=== PATIENT | male | born 1945 | race Caucasian/White ===

== ENCOUNTER → 2024-07-31 19:30 | Outpatient (REF) | payer OTHER, SELFPAY ==
--- OUTSIDE RECORDS SUMMARY | 2024-08-01 00:57 | XMS_ITS | Encounter Summary ---
Author Name [facility] Organization [facility] [place] Address [address] [place] [id number] Care Team Providers Care Game Preserve Manager Name Role Phone YAMILKA SPENCER Primary Care Provider MINI Hendricks Primary Care Provider Unavailab thibodeaux Insurance Providers: All historical and current Section Date Range: From patient's date of to the date document was created. This section includes the names of all active insurance providers for the patient. Insurance Provider Type of Coverage Plan Name Start of Policy Coverage End of Policy Coverage Group Number Member ID Insurance Provider's Telephone Number Policy Haile's Name Patient's Relationship to Policy Haile [employer] [facility] (WNR) MEDICARE ADVANTAGE [facility] ([facility] August 28, 2022 [id number] [phone] DEUCE GUAJARDO PATIENT MEDICARE (WNR) MEDICARE () PART B Oct 29, 2015 PART B [id number] [phone] DEUCE GUAJARDO PATIENT MEDICARE (WNR) MEDICARE () PART B Oct 29, 2015 PART B [id number] [phone] DEUCE GUAJARDO PATIENT MEDICARE (WNR) MEDICARE (M) PART B Oct 29, 2015 PART B [id number] [phone] DEUCE GUAJARDO PATIENT MEDICARE (WNR) MEDICARE (M) PART B Oct 29, 2015 PART B [id number] [phone] DEUCE GUAJARDO PATIENT MEDICARE (WNR) MEDICARE () PART A Jul 29, 2012 PART A [id number] DEUCE GUAJARDO PATIENT MEDICARE (WNR) MEDICARE (M) PART A Jul 29, 2012 PART A [id number] [phone] DEUCE GUAJARDO PATIENT MEDICARE (WNR) MEDICARE (M) PART A Jul 29, 2012 PART A [id number] [phone] DEUCE GUAJARDO PATIENT MEDICARE (WNR) MEDICARE (M) PART A Jul 29, 2012 PART A [id number] DEUCE GUAJARDO PATIENT MEDICARE (WNR) MEDICARE (M) PART B Jul 29, 2012 PART B [id number] DEUCE GUAJARDO PATIENT MEDICARE (WNR) MEDICARE (M) PART A Jul 29, 2012 PART A [id number] DEUCE GUAJARDO PATIENT MEDICARE PART D (WNR) MEDICARE (M) PART D Apr 30, 2017 PART D [id number] DEUCE GUAJARDO PATIENT Selected Encounter This section includes the information on record at [place] for the Encounter. Date/Time Encounter Type Encounter Description Reason Provider Source Jul 31, 2024 11:00 AM [facility] EVALUATION AUDIOLOGY ICD-10-CM Z46.1 Encounter for fitting and adjustment of hearing aid DAMARIS RESENDIZ [facility] Encounter Template Text not used by [place] Assessments - Encounter Diagnoses This section includes the primary and secondary diagnoses documented for the Encounter. Date/Time Primary/Secondary Diagnosis Diagnosis Name Provider Source Jul 31, 2024 11:53 AM PRIMARY Encounter for fitting and adjustment of hearing aid DAMARIS RESENDIZ [facility] Jul 31, 2024 11:53 AM SECONDARY Sensorineural hearing loss, bilateral DAMARIS RESENDIZ [facility] Plan of Treatment: Future Appointments (+ 6 months) and Future Tests (+/- 45 days) The Plan of Treatment section includes future care activities for the patient from all [place] treatmentfacilities. This section includes future appointments and future orders which are active, pending or scheduled. Future Appointments This section includes appointments that were scheduled to occur 6 months from the date of the Encounter, up to a maximum of 20 appointments. The data comes from all [place] treatment facilities. Appointment Date/Time Appointment Type Appointme nt Facility Name Aug 04, 2024 09:00 AM AMBULATORY - MEDICINE [place] [facility] [place] [facility] Aug 05, 2024 01:00 PM AMBULATORY - MEDICINE [place] [facility] [place] [facility] Aug 07, 2024 09:00 AM AMBULATORY - MEDICINE [place] [facility] [place] [facility] Aug 07, 2024 09:00 AM AMBULATORY - [place]ICINE [place] [facility] September 08, 2024 03:00 PM [facility] Nov 24, 2024 09:00 AM AMBULATORY - MEDICINE [place] [facility] [place] [facility] Dec 02, 2024 01:00 PM AMBULATORY - MEDICINE [place] [facility] [place] [facility] Dec 02, 2024 01:00 PM AMBULATORY - MEDICINE [place] [facility] Active, Pending, and Scheduled Orders This section includes a listing of several types of active, pending, and scheduled orders, including clinic medications orders, diagnostic test orders, procedure orders and consult orders; where the start date of the order is 45 days before the date of the Encounter or 45 days after the date of theEncounter. The data comes from all [place] treatment facilities. Test Date/Time Test Type Test Details Facility Name Jul 25, 2024 12:00 AM Laboratory - Chemistry Order BASIC METABOLIC PANEL (non-fasting) BLOOD (SST-SERUM) [facility] Jul 25, 2024 12:00 AM Laboratory - Chemistry Order CBC AND DIFF (AUTO) BLOOD (LAV-BLOOD) [facility] Jul 25, 2024 12:00 AM Laboratory - Chemistry Order LIVER FUNCTION BLOOD (SST-SERUM) [facility] Jul 25, 2024 03:29 PM Consult Order VISN 1 [facility] [address]ROLOGY OUTPT IFC CT Cons Floor Inspector's Choice [facility] Lab Results: +/- 30 days of the encounter This section includes the Chemistry and Hematology Lab Results on record with [place] for the patient. Radiology Reports and Pathology Reports are provided separately, in subsequent sections. Lab Results This section contains the Chemistry/Hematology Results that were resulted 30 days before or 30 daysafter the date of the Encounter. Date/Time Source Result Type Result - Unit Interpretation Reference Range Comment Jul 24, 2024 10:30 AM [facility] CBC AND DIFF (AUTO) Specimen Type: BLOOD No comment entered. Ordering Provider: PAULINA GONZALEZ Report Released Date/Time: Jul 09, 2024 08:44 AM Reporting Lab: [facility] [address] [facility] [address] Performing Lab: [facility] [address] [facility] [address] WBC 12.79 10*3/uL H 4.50-11.00 RBC 3.58 10*6/uL L 4.23-5.66 HGB 11.8 g/dL L 12.8-17 HCT 35.2 L 39.2-50.4 MCV 98.3 fL 82-99 MCHC 33.5 g/dL 30.8-35.1 PLT 175 10*3/uL 140-360 MPV 11.5 fL 9.2-12.4 RDW-CV 12.5 12.0-16.0 MONO, ABS 1.14 10*3/uL H 0.30-1.10 MCH 33.0 pg H 26.2-32.6 NEUT % 80.0 H 43.7-75.8 LYMPH % 8.4 L 14.0-42.3 MONO % 8.9 5.1-13.7 EOS % 2.0 0.4-6.8 BASO % 0.2 0.1-2.0 NEUT, ABS 10.21 10*3/uL H 2.20-7.60 LYMPH, ABS 1.08 10*3/uL 1.00-3.20 EOS, ABS 0.26 10*3/uL 0.03-0.44 BASO, ABS 0.03 10*3/uL 0.01-0.13 IMMATURE GRAN % 0.5 0.0-0.7 IMMATURE GRAN, ABS 0.07 10*3/uL H 0.00-0.06 NRBC % 0.0 0.0-0.0 NRBC, ABS 0.00 10*3/uL 0.00-0.00 Jul 24, 2024 10:30 AM [facility] BASIC METABOLIC PANEL (non-fasting) Specimen Type: SERUM No comment entered. Ordering Provider: PAULINA GONZALEZ Report Released Date/Time: Jul 09, 2024 08:44 AM Reporting Lab: [facility] [address] [facility] [address] Performing Lab: [facility] [address] [facility] [address] UREA NITROGEN 26 mg/dL H 7-25 GLUCOSE 122 mg/dL H 65-100 SODIUM 135 mmol/L 135-145 POTASSIUM 3.8 mmol/L 3.5-5.0 CHLORIDE 102 mmol/L 100-110 CO2 23 meq/L 20-30 CALCIUM 8.3 mg/dL L 8.5-10.2 CREATININE, Serum 2.28 mg/dL H 0.50-1.40 eGFR(CKD-EPI 2020) 29 mL/min L >60 Jul 24, 2024 10:30 AM [facility] LIVER FUNCTION Specimen Type: SERUM No comment entered. Ordering Provider: PAULINA GONZALEZ Report Released Date/Time: Jul 09, 2024 08:44 AM Reporting Lab: [facility] [address] [facility] [address] Performing Lab: [facility] [address] [facility] [address] PROTEIN,TOTAL 6.2 g/dL 6.0-8.3 ALBUMIN 3.6 g/dL 3.5-5.0 ALKALINE PHOSPHATASE 92 U/L 40-150 AST 15 U/L 5-34 ALT 18 U/L BILIRUBIN, TOTAL 1.6 mg/dL H 0.2-1.2 BILIRUBIN, DIRECT 0.6 mg/dL H 0-0.5 Jul 24, 2024 10:30 AM [facility] LIPID PANEL, NON FASTING Specimen Type: SERUM No comment entered. Ordering Provider: PAULINA GONZALEZ Report Released Date/Time: Jul 09, 2024 08:44 AM Reporting Lab: [facility] [address] [facility] [address] Performing Lab: [address] [address] CHOLESTEROL 111 mg/dL TRIGLYCERIDE 180 mg/dL H 0-150 LDL calculated 33 mg/dL 0-129 CHOL/HDL 2.6 HDL CHOLESTEROL 42 mg/dL 40-60 Jul 24, 2024 10:30 AM [facility] CREATININE (eGFR 2020) Specimen Type: SERUM No comment entered. Ordering Provider: PAULINA GONZALEZ Report Released Date/Time: Jul 09, 2024 08:44 AM Reporting Lab: [facility] [address] [facility] [address] Performing Lab: [facility] [address] [facility] [address] CREATININE, Serum 2.28 mg/dL H 0.50-1.40 eGFR(CKD-EPI 2020) 29 mL/min L >60 Encounter Notes: All associated encounter notes This section contains the clinical notes associated to the Encounter. Date/Time Encounter Note(s) Provider Source Jul 31, 2024 07:45 AM AUDIOLOGY E & M NO TE: LOCAL TITLE: AUDIOLOGY CLINIC STANDARD TITLE: AUDIOLOGY E & M NOTE DATE OF NOTE: JUL 31, 2024@07:45 ENTRY DATE: JUL 31, 2024@07:45:57 AUTHOR: DAMARIS RESENDIZ COSIGNER: URGENCY: STATUS: COMPLETED Dx CODE: Z46.1- Encounter for Fitting/Programming Hearing Aid(s); H90.3- Sensorineural Hearing Loss, Bilateral APPOINTMENT TYPE: Hearing Aid Fitting SUBJECTIVE (S): The patient was seen today for hearing aid fitting and issuance, unaccompanied. He had previously been evaluated and found to exhibit significant hearing loss for which amplification was recommended. He is a previous user of hearing aids, and was fit on 07/26/21 with PHONAK AUDEO P90-R RICs. How does the patient best learn? Verbal instruction, demonstration Does the patient have any cultural and mandaeism beliefs, emotional barriers, physical or cognitive limitations, and communication barriers which may impact his ability to learn? No Desire and motivation to learn? Good OBJECTIVE (O): Physical fit of hearing aids was good. Patient verified comfort. Verification of an appropriate acoustic response was obtained using Real Ear measurements (speech mapping) and NAL-NL2 targets. The patient reported good subjective benefit as well. Feedback security and compliance project manager was run. Hearing aids were found to be meeting targets adequately and MPO was not exceeding estimated UCL. Settings stored in FRED. ASSESSMENT (A): The following devices were issued: Make: PHONAK Model: AUDEO I90-R KAZ Right Serial Number: [id number] Left Serial Number: [id number] Battery size: Rechargeable Warranty ends: 08/07/27 Trial Period ends: 01/04/25 Domes/wax guards: Cerustop, Small vented domes Health And Wellness Coach size/power: Size 2 M Program(s): Automatic Button(s): Short press= Synced VC via rocker switches Long press= program Extra-long press= Power on/off Fitting Formula: NAL-NL2 Remote Programming: HAs are capable Bluetooth: Paired to [employer]PATH and [employer] catalino 's 2021 hearing aids were sent for an overhaul repair today and will be mailed to his address on file via [employer]. Counseling was completed throughout todays appointment using a standardized curriculum that includes but is not limited to; realistic expectations with amplification in adverse listening environments, acclimatization to own voice and environmental sounds (following real-ear measurements), the importance of consistent use of amplification, proper insertion/removal, care and maintenance (including wax guards/domes if applicable), signal and alerts of devices, and charging/batteries. The was provided the opportunity to practice in office and reports confidence/understanding in all items reviewed. Time Spent= 20 minutes The patient was informed of and signed/agreed to [place] policy on hearing aid issuance: Yes Users are responsible for the maintenance and security of their devices. Determination of need to replace a hearing aid is made by the [place] manager discovery. Hearing aids will not be replaced in cases of neglect, abuse, or excessive loss. Items issued are for personal use only. Prognosis for successful hearing aid use is good. PLAN (P): 1. Follow-up for programming/adjustments as needed. 2. The International Outcome Inventory-Hearing Aids (IOI-CA) will be mailed to the in four weeks. He was asked to complete and mail back to clinic after completion. Patient Education Education provided on the following topics: Hearing aid use, care, maintenance Education provided to: P Response to Education: CLARKE, VIOLA, PI [place] Patient P Family F Significant Other SO Verbalizes Understanding VU Returns Demonstration RD Performs Independently PI Lacks Comprehension LC Refused Education RE Not Applicable NA /timur/ AMADA ENRIQUE, CCC-A STAFF SEGMENT BLOCK LAYER Signed: 07/31/2024 11:53 DAMARIS RESENDIZ [facility]
--- OUTSIDE RECORDS SUMMARY | 2024-08-01 00:57 | XMS_ITS | Encounter Summary ---
Author Name [facility] [place] [facility] [place] Address [address] [place] [address] Care Team Providers Care Android Software Engineer Name Role Phone YAMILKA SPENCER Primary Care Provider UnavailMINI Mera Primary Care Provider Unavailab le Insurance Providers: All historical and current Section [...] Name Patient's Relationship to Policy Haile [facility] (WNR) MEDICARE [facility]VANT[facility] ([facility] August 28, 2022 [id number] [phone] DEUCE GUAJARDO PATIENT MEDICARE (WN) MEDICARE () PART B Oct 29, 2015 PART B [id number] [phone] DEUCE GUAJARDO PATIENT MEDICARE (WNR) MEDICARE () PART B Oct 29, 2015 PART B [id number] DUECE GUAJARDO PATIENT MEDICARE (WNR) MEDICARE () PART B Oct 29, 2015 PART B [id number] DEUCE GUAJARDO PATIENT MEDICARE (WNR) MEDICARE () PART B Oct 29, 2015 PART B [id number] DEUCE GUAJARDO PATIENT MEDICARE (WNR) MEDICARE () PART A Jul 29, 2012 PART A [id number] DEUCE GUAJARDO PATIENT MEDICARE (WNR) MEDICARE (M) PART A Jul 29, 2012 PART A [id number] DEUCE GUAJARDO PATIENT MEDICARE (WNR) MEDICARE (M) PART A Jul 29, 2012 PART A [id number] DEUCE GUAJARDO PATIENT MEDICARE (WNR) MEDICARE (M) PART B Jul 29, 2012 PART B [id number] [phone] DEUCE GUAJARDO PATIENT MEDICARE (WNR) MEDICARE (M) PART A Jul 29, 2012 PART A [id number] DEUCE GUAJARDO PATIENT MEDICARE (WNR) MEDICARE (M) PART A Jul 29, 2012 PART A [id number] DEUCE GUAJARDO PATIENT MEDICARE PART D (WNR) MEDICARE (M) PART D Apr 30, 2017 PART D [id number] DEUCE GUAJARDO PATIENT Selected Encounter This section includes the information on record at [place] for the Encounter. Date/Time Encounter Type Encounter Description Reason Provider Source Jun 27, 2024 09:30 AM OFF/OP EST AUGUST X REQ PHY/QHP PRIMARY CARE/MEDICINE ICD-10-CM Z71.89 Other specified counseling YANDEL GOLDEN [place] Encounter Template Text not used by [place] Assessments - Encounter Diagnoses This section includes the primary and secondary diagnoses documented for the Encounter. Date/Time Primary/Secondary Diagnosis Diagnosis Name Provider Source Jun 27, 2024 09:58 AM PRIMARY Other specified counseling YANDEL GOLDEN [facility] Plan of Treatment: Future Appointments (+ 6 months) and Future Tests (+/- 45 days) The Plan of Treatment section includes future care activities for the patient from all [place] treatmentfacilities. This section includes future appointments and future orders which are active, pending or scheduled. Future Appointments This section includes appointments that were scheduled to occur 6 months from the date of the Encounter, up to a maximum of 20 appointments. The data comes from all [place] treatment facilities. Appointment Date/Time Appointment Type Appointme nt Facility Name Jul 06, 2024 10:30 AM [facility], [facility] 01:00 PM [facility] Jul 24, 2024 09:30 AM [facility]ICINE [facility] Jul 24, 2024 10:00 AM AMBULATORY - MEDICINE [facility] Jul 31, 2024 11:00 AM AMBULATORY - REHAB MEDICIN E [facility] Aug 04, 2024 09:00 AM AMBULATORY - MEDICINE [facility] Aug 05, 2024 01:00 PM AMBULATORY - MEDICINE [facility] Aug 07, 2024 09:00 AM [facility] Aug 07, 2024 09:00 AM AMBULATORY - MEDICINE [facility] September 08, 2024 03:00 PM AMBULATORY - PSYCHIATRY [facility] Nov 24, 2024 09:00 AM AMBULATORY - MEDICINE [facility] Dec 02, 2024 01:00 PM [facility] Dec 02, 2024 01:00 PM AMBULATORY - MEDICINE [facility] Active, Pending, and Scheduled Orders This section includes a listing of several types of active, pending, and scheduled orders, including clinic medications orders, diagnostic test orders, procedure orders and consult orders; where the start date of the order is 45 days before the date of the Encounter or 45 days after the date of theEncounter. The data comes from all [place] treatment facilities. Test Date/Time Test Type Test Details Facility Name Jun 04, 2024 01:46 PM Consult Order COMMUNITY CARE-SLEEP STUDY [facility] Jun 10, 2024 02:52 PM Consult Order COMMUNITY CARE-BH PSYCHOTHERAPY [facility] Jul 25, 2024 12:00 AM Laboratory - Chemistry Order BASIC METABOLIC PANEL (non-fasting) BLOOD (SST-SERUM) [facility] Jul 25, 2024 12:00 AM Laboratory - Chemistry Order CBC AND DIFF (AUTO) BLOOD (LAV-BLOOD) [facility] Jul 25, 2024 12:00 AM Laboratory - Chemistry Order LIVER FUNCTION BLOOD (SST-SERUM) [facility] Jul 25, 2024 03:29 PM Consult Order VISN 1 [facility] NEPHROLOGY OUTPT IFC CT [facility] Lab Results: +/- 30 days of the encounter This section includes the Chemistry and Hematology Lab Results on record with [place] for the patient. Radiology Reports and Pathology Reports are provided separately, in subsequent sections. Lab Results This section contains the Chemistry/Hematology Results that were resulted 30 days before or 30 daysafter the date of the Encounter. Date/Time Source Result Type Result - Unit Interpretation Reference Range Comment Jul 24, 2024 10:30 AM [facility] CBC AND DIFF (AUTO) Specimen Type: BLOOD No comment entered. Ordering Provider: PAULINA GONZALEZ Report Released Date/Time: Jul 09, 2024 08:44 AM Reporting Lab: [facility] [address] [facility] [address] Performing Lab: [address] [address] WBC 12.79 10*3/uL H 4.50-11.00 RBC 3.58 [...] 10*3/uL 0.00-0.00 Jul 24, 2024 10:30 AM [facility] BASIC METABOLIC PANEL (non-fasting) Specimen Type: SERUM No comment entered. Ordering Provider: PAULINA GONZALEZ Report Released Date/Time: Jul 09, 2024 08:44 AM Reporting Lab: [address] [address] Performing Lab: [address] [address] UREA NITROGEN 26 mg/dL H 7-25 GLUCOSE 122 mg/dL H 65-100 SODIUM 135 mmol/L 135-145 POTASSIUM 3.8 mmol/L 3.5-5.0 CHLORIDE 102 mmol/L 100-110 CO2 23 meq/L 20-30 CALCIUM 8.3 mg/dL L 8.5-10.2 CREATININE, Serum 2.28 mg/dL H 0.50-1.40 eGFR(CKD-EPI 2020) 29 mL/min L >60 Jul 24, 2024 10:30 AM [facility] LIVER FUNCTION Specimen Type: SERUM No comment entered. Ordering Provider: PAULINA GONZALEZ Report Released Date/Time: Jul 09, 2024 08:44 AM Reporting Lab: [address] [address] Performing Lab: [address] [address] PROTEIN,TOTAL 6.2 g/dL 6.0-8.3 ALBUMIN 3.6 g/dL 3.5-5.0 ALKALINE PHOSPHATASE 92 U/L 40-150 AST 15 U/L 5-34 ALT 18 U/L BILIRUBIN, TOTAL 1.6 mg/dL H 0.2-1.2 BILIRUBIN, DIRECT 0.6 mg/dL H 0-0.5 Jul 24, 2024 10:30 AM [facility] LIPID PANEL, NON FASTING Specimen Type: SERUM No comment entered. Ordering Provider: PAULINA GONZALEZ Report Released Date/Time: Jul 09, 2024 08:44 AM Reporting Lab: [facility] [address] [facility] [address] Performing Lab: [facility] [address] [facility] [address] CHOLESTEROL 111 mg/dL TRIGLYCERIDE 180 mg/dL H 0-150 LDL calculated 33 mg/dL 0-129 CHOL/HDL 2.6 HDL CHOLESTEROL 42 mg/dL 40-60 Jul 24, 2024 10:30 AM [facility] CREATININE (eGFR 2020) Specimen Type: SERUM No comment entered. Ordering Provider: PAULINA GONZALEZ Report Released Date/Time: Jul 09, 2024 08:44 AM Reporting Lab: [facility] [address] [facility] [address] Performing Lab: [facility] [address] [facility] [address] CREATININE, Serum 2.28 mg/dL H 0.50-1.40 eGFR(CKD-EPI 2020) 29 mL/min L >60 Jun 24, 2024 02:15 PM [facility] BASIC METABOLIC PANEL (non-fasting) Specimen Type: SERUM No comment entered. Ordering Provider: PAULINA GONZALEZ Report Released Date/Time: May 26, 2024 03:44 PM Reporting Lab: [facility] [address] [facility] [address] Performing Lab: [address] [address] UREA NITROGEN 13 mg/dL 7-25 GLUCOSE 102 mg/dL H 65-100 SODIUM 140 mmol/L 135-145 POTASSIUM 4.6 mmol/L 3.5-5.0 CHLORIDE 107 mmol/L 100-110 CO2 24 meq/L 20-30 CALCIUM 8.5 mg/dL 8.5-10.2 CREATININE, Serum 1.21 mg/dL 0.50-1.40 eGFR(CKD-EPI 2020) 61 mL/min >60 Social History: Smoking Status (Most current) and Tobacco Use (All prior to encounter date) This section includes the most current, and the historical, smoking and tobacco- related health factors from the [place] facility where the Encounter took place. Current Smoking Status This section includes the most current smoking, or tobacco-related health factor, from the [place] facility where the Encounter took place. Date/Time Current Smoking Status Comment Facil ity Apr 17, 2024 08:30 AM AL-TOBACCO USE FORMER CIGARETTES [facility] Tobacco Use History This section includes a history of the smoking, or tobacco-related health factors, that were collected on or before the date of the Encounter. The data comes from the [place] facility where the Encounter took place. Date/Time Smoking Status/Tobacco Use Comment F kristyn Apr 17, 2024 08:30 AM AL-TOBACCO USE FORMER CIGARETTES [facility] Encounter Notes: All associated encounter notes This section contains the clinical notes associated to the Encounter. Date/Time Encounter Note(s) Provider Source Jun 27, 2024 09:30 AM NURSING NOTE: LOCAL TITLE: NURSING NOTE STANDARD TITLE: NURSING NOTE DATE OF NOTE: JUN 27, 2024@09:30 ENTRY DATE: JUN 27, 2024@09:30:18 AUTHOR: YANDEL GOLDEN COSIGNER: URGENCY: STATUS: COMPLETED NURSING NOTE Has ADDENDA Nurse visit: Blood pressure check here for blood pressure check per PCP. Vet has history of hypertension. The vet is taking this medication for elevated B/P: 1. LOSARTAN POTASSIUM TAB 25MG TAKE ONE TABLET BY MOUTH ONCE DAILY FOR BLOOD PRESSURE/HEART 2. CARVEDILOL TAB 25MG TAKE ONE TABLET BY MOUTH TWICE DAILY B/P today is 164/90 in his right arm 160/90 in his left arm (manual cuff used with arm elevated at heart level) Pulse is 64. Plan: Will review results with PCP. Vet states he has been checking BP at home occasionally and has not gotten a systolic below 140's. /es/ YANDEL GOLDEN RN REGISTERED NURSE Signed: 06/27/2024 09:58 Receipt Acknowledged By: 06/27/2024 10:02 /es/ Paulina Gonzalez MD Staff Physician 06/27/2024 ADDENDUM STATUS: COMPLETED Please increase losartan to 50mg po daily and repeat BP in 3 to 4 weeks /timur/ Paulina Gonzalez MD Staff Physician Signed: 06/27/2024 10:07 06/27/2024 ADDENDUM STATUS: COMPLETED Vet notified of above medication change. Vet verbalizes understanding. 4 week follow up for BP check and labs discussed. Vet will get labs done in [place] in 4 weeks as he lives closer to there. [facility] to schedule BP check. /timur/ YANDEL GOLDEN RN REGISTERED NURSE Signed: 06/27/2024 10:15 YANDEL GOLDEN [facility]
--- OUTSIDE RECORDS SUMMARY | 2024-08-01 00:57 | XMS_ITS | Encounter Summary ---
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 or DoD facility (remote) as well as inpatient orders (local, pending and active), local clinic medications, locally documented non-VA medications, and local prescriptions that have or been discontinued in the past 90 days. - All changes in medications, including all non-VA/Herbal/OTC medications were entered into [facility]S. - If there were any medications the patient should no longer take, they were discontinued. - The patient/caregiver was instructed to update this list, discard old lists, and take this list to the next appointment, whether with a VA or non-VA provider. /timur/ Paulina Gonzalez MD Staff Physician Signed: 05/26/2024 15:58 PAULINA GONZALEZ [facility]
--- OUTSIDE RECORDS SUMMARY | 2024-08-01 00:57 | XMS_ITS | Encounter Summary ---
Author Name [facility] [place] [facility] [place] [facility] [place] [facility] [place] Address [address] [place] [id number] Care Team Providers Care Cable Maintainer Name Role Phone YAMILKA SPENCER Primary Care [...] Relationship to Policy Haile [employer] [facility] (WNR) MEDICARE ADVANTAGE [facility] ([facility]) August 28, 2022 [id number] [phone] DEUCE GUAJARDO PATIENT MEDICARE (WNR) MEDICARE () PART B Oct 29, 2015 PART B [id number] [phone] DEUCE GUAJARDO PATIENT MEDICARE (WNR) MEDICARE () PART B Oct 29, 2015 PART B [id number] DEUCE GUAJARDO PATIENT MEDICARE (WNR) MEDICARE () PART B Oct 29, 2015 PART B [id number] DEUCE GUAJARDO PATIENT MEDICARE (WNR) MEDICARE () PART B Oct 29, 2015 PART B [id number] DEUCE GUAJARDO PATIENT MEDICARE (WN) MEDICARE () PART A Jul 29, 2012 PART A [id number] DEUCE GUAJARDO PATIENT MEDICARE (WNR) MEDICARE (M) PART A Jul 29, 2012 PART A [id number] [phone] DEUEC GUAJARDO PATIENT MEDICARE (WNR) MEDICARE (M) PART A Jul 29, 2012 PART A [id number] DEUCE GUAJARDO PATIENT MEDICARE (WNR) MEDICARE (M) PART A Jul 29, 2012 PART A [id number] DEUCE GUAJARDO PATIENT MEDICARE (WNR) MEDICARE (M) PART B Jul 29, 2012 PART B [id number] DEUCE GUAJARDO PATIENT MEDICARE (WNR) MEDICARE (M) PART A Jul 29, 2012 PART A [id number] DEUCE GUAJARDO PATIENT MEDICARE PART D (WNR) MEDICARE (M) PART D Apr 30, 2017 PART D [id number] DEUCE GUAJARDO PATIENT Selected Encounter This section includes the information on record at [place] for the Encounter. Date/Time Encounter Type Encounter Description Reason Provider Source Jun 04, 2024 01:00 PM OFF/OP CNSLTJ NEW/EST MOD 40 OTOLARYNGOLOGY/EN T ICD-10-CM G47.33 Obstructive sleep apnea (adult) (pediatric) TERESA HARVEY [facility] Encounter Template Text not used by [place] Assessments - Encounter Diagnoses This section includes the primary and secondary diagnoses documented for the Encounter. Date/Time Primary/Secondary Diagnosis Diagnosis Name Provider Source Jun 04, 2024 03:00 PM PRIMARY Obstructive sleep apnea (adult) (pediatric) TERESA HARVEY [facility] Jun 04, 2024 03:00 PM SECONDARY Chronic rhinitis [facility] Plan of Treatment: Future Appointments (+ 6 months) and Future Tests (+/- 45 days) The Plan of Treatment section includes future care activities for the patient from all [place] treatmentfacilities. This section includes future appointments and future orders which are active, pending or scheduled. Future Appointments This section includes appointments that were scheduled to occur 6 months from the date of the Encounter, up to a maximum of 20 appointments. The data comes from all [place] treatment facilities. Appointment Date/Time Appointment Type Appointme nt Facility Name Jun 27, 2024 09:30 AM [facility] [place] [facility] Jul 06, 2024 10:30 AM [facility] MEDIC[facility] [place] [facility] Jul 07, 2024 01:00 PM AMBULATORY - REHAB MEDICIN E [facility] [place] [facility] Jul 24, 2024 09:30 AM AM[facility]ULATORY [facility] MEDICINE [facility] [place] [facility] Jul 24, 2024 10:00 AM AMBULATORY [facility] MEDICINE [facility] [place] [facility] Jul 31, 2024 11:00 AM AMBULATORY - REHAB MEDICIN E [facility] [place] [facility] Aug 04, 2024 09:00 AM AM[facility]ULATORY [facility] MEDICINE [facility] [place] [facility] Aug 05, 2024 01:00 PM AMBULATORY - MEDICINE [facility] [place] [facility] Aug 07, 2024 09:00 AM AMBULATORY - MEDICINE [facility] [place] [facility] Aug 07, 2024 09:00 AM AMBULATORY - MEDICINE [place] [facility] September 08, 2024 03:00 PM AMBULATORY - PSYCHIATRY [facility] [place] [facility] Nov 24, 2024 09:00 AM AMBULATORY - MEDICINE [place] [facility] [place] [facility] Dec 02, 2024 01:00 PM AMBULATORY - [place]ICINE [place] [facility] [place] [facility] Dec 02, 2024 01:00 PM AMBULATORY - MEDICINE [facility] Active, Pending, and Scheduled Orders This section includes a listing of several types of active, pending, and scheduled orders, including clinic medications orders, diagnostic test orders, procedure orders and consult orders; where the start date of the order is 45 days before the date of the Encounter or 45 days after the date of theEncounter. The data comes from all [place] treatment facilities. Test Date/Time Test Type Test Details Facility Name May 06, 2024 02:44 PM Consult Order PSYCHIATRI C MEDICATION POPC OUTPT [facility] Jun 04, 2024 01:46 PM Consult Order COMMUNITY CARE-SLEEP STUDY [facility] [place] [facility] [place] [facility] Jun 10, 2024 02:52 PM Consult Order [facility] [employer] Lab Results: +/- 30 days of the encounter This section includes the Chemistry and Hematology Lab Results on record with [place] for the patient. Radiology Reports and Pathology Reports are provided separately, in subsequent sections. Lab Results This section contains the Chemistry/Hematology Results that were resulted 30 days before or 30 daysafter the date of the Encounter. Date/Time Source Result Type Result - Unit Interpretation Reference Range Comment Jun 24, 2024 02:15 PM [facility] BASIC METABOLIC PANEL (non-fasting) Specimen Type: SERUM No comment entered. Ordering Provider: PAULINA GONZALEZ Report Released Date/Time: May 26, 2024 03:44 PM Reporting Lab: [address] [address] Performing Lab: [address] [address] UREA NITROGEN 13 mg/dL 7-25 GLUCOSE 102 mg/dL H 65-100 SODIUM 140 mmol/L 135-145 POTASSIUM 4.6 mmol/L 3.5-5.0 CHLORIDE 107 mmol/L 100-110 CO2 24 meq/L 20-30 CALCIUM 8.5 mg/dL 8.5-10.2 CREATININE , Serum 1.21 mg/dL 0.50-1.40 eGFR(CKD-E PI 2020) 61 mL/min >60 May 20, 2024 10:57 AM [facility] VITAMIN D 25-OH (Therapy monitor) Specimen Type: [...] For additional information, please refer to http://education .[employer]/faq/NEL165 (This link is being provided for informational/ educational purposes only.) This test was developed and its analytical performance characteristics have been determined by [facility] [place] [place]. It has not been cleared or approved by the U.S. Food and Drug Administration. This assay has been validated pursuant to the CLIA regulations and is used for clinical purposes. This test was developed and its analytical performance characteristics have been determined by [facility] [place] [place]. It has not been cleared or approved by the U.S. Food and Drug Administration. This assay has been validated pursuant to the CLIA regulations and is used for clinical purposes. Test Performed by [facility], [facility], [address] [place] [address] Cole Rodriguez M.D., Ph.D., Director of Laboratories , CLIA [id number] TEST PERFORMED AT: , Ordering Provider: PAULINA GONZALEZ Report Released Date/Time: May 16, 2024 11:37 AM Reporting Lab: [facility] [address] [facility] [address] Performing Lab: [facility] [address] [address] VITAMIN D, 25-OH, TOTAL 40 ng/mL 30-100 VITAMIN D, 25-OH, D3 8 ng/mL VITAMIN D, 25-OH, D2 32 ng/mL May 20, 2024 10:57 AM [facility] FOLATE (WROX) Specimen Type: SERUM No comment entered. Ordering Provider: PAULINA GONZALEZ Report Released Date/Time: May 16, 2024 11:37 AM Reporting Lab: [facility] [address] [facility] [address] Performing Lab: [facility] [address] [facility] [address] FOLATE (WROX) 18.4 ng/mL >5.2 May 20, 2024 10:57 AM [facility] BASIC METABOLIC PANEL (non-fasting) Specimen Type: SERUM No comment entered. Ordering Provider: PAULINA GONZALEZ Report Released Date/Time: May 16, 2024 11:37 AM Reporting Lab: [facility] [address] [facility] [address] Performing Lab: [address] [address] UREA NITROGEN 17 mg/dL 7-25 GLUCOSE 106 mg/dL H 65-100 SODIUM 143 mmol/L 135-145 POTASSIUM 4.4 mmol/L 3.5-5.0 CHLORIDE 109 mmol/L 100-110 CO2 25 meq/L 20-30 CREATININE , Serum 1.25 mg/dL 0.50-1.40 eGFR(CKD-E PI 2020) 59 mL/min L >60 May 20, 2024 10:57 AM [facility] CBC AND DIFF (AUTO) Specimen Type: BLOOD No comment entered. Ordering Provider: PAULINA GONZALEZ Report Released Date/Time: May 16, 2024 11:37 AM Reporting Lab: [address] [address] Performing Lab: [address] [address] WBC 6.37 10*3/uL 4.50-11.00 RBC 3.53 10*6/uL [...] 10*3/uL 0.00-0.00 May 20, 2024 10:57 AM [facility] VITAMIN B12 Specimen Type: SERUM No comment entered. Ordering Provider: PAULINA GONZALEZ Report Released Date/Time: May 16, 2024 11:37 AM Reporting Lab: [address] [address] Performing Lab: [address] [address] VITAMIN B12 292 pg/mL 200-900 May 20, 2024 10:57 AM [facility] FERRITIN Specimen Type: SERUM No comment entered. Ordering Provider: PAULINA GONZALEZ Report Released Date/Time: May 16, 2024 11:37 AM Reporting Lab: [address] [address] Performing Lab: [address] [address] FERRITIN 89 ng/mL 20-300 May 20, 2024 10:57 AM [facility] HIV 1&2 Ag/Ab SCREEN Specimen Type: SERUM Comment: Hep C Ab: No HCV antibody detected. If recent infection is suspected or other evidence suggests HCV infection, consider HCV nucleic acid testing Ordering Provider: PAULINA GONZALEZ Report Released Date/Time: May 16, 2024 11:37 AM Reporting Lab: [address] [address] Performing Lab: [address] [address] HIV 1&2 Ag/Ab SCREEN NON-REACTIVE Nonreactive May 20, 2024 10:57 AM [facility] HEPATITIS C ANTIBODY (HCV)-ARC Specimen Type: SERUM Comment: Hep C Ab: No HCV antibody detected. If recent infection is suspected or other evidence suggests HCV infection, consider HCV nucleic acid testing Ordering Provider: PAULINA GONZALEZ Report Released Date/Time: May 16, 2024 11:37 AM Reporting Lab: [facility] [address] [facility] [address] Performing Lab: [address] [address] HEPATITIS C ANTIBODY NON-REACTIVE NON-REACTIVE Vital Signs: All taken on the encounter date This section contains inpatient and outpatient Vital Signs collected on the date of the Encounter. Date/Time Temperature Pulse Blood Pressure Respiratory Rate SP02 Pain Height Weight Body Mass Index Source Jun 04, 2024 01:10 PM 96.9 64 178/92 16 97 2 216.4 32 [facility] Encounter Notes: All associated encounter notes This section contains the clinical notes associated to the Encounter. Date/Time Encounter Note(s) Provider Source Jun 04, 2024 01:36 PM OTOLARYNGOLOGY CONSULT: LOCAL TITLE: CONSULT REPORT/OTOLARYNGOLOGY STANDARD TITLE: OTOLARYNGOLOGY CONSULT DATE OF NOTE: JUN 04, 2024@13:36 ENTRY DATE: JUN 04, 2024@13:36:48 AUTHOR: TERESA HARVEY COSIGNER: URGENCY: STATUS: COMPLETED CONSULT REQUESTED FROM JUN 04, 2024 ALEENA GUAJARDO is a 79 y/o WHITE MALE, previously in [employer] FROM May TO Dec from [employer] [place] [employer], w/chief complaint of OBSTRUCTIVE SLEEP APNEA 79-year-old male status post implant of the Inspire device in [place] on 01-14-2021. Patient has been using it well since that time. He states that he had a home sleep study performed on 09-03-2023 and was told that he should get an in lab polysomnogram. He travels between this area, [place], and [place] to see his children and he is planning on being here for several months because he is also in need of a knee replacement. Overall he finds the inspire device very useful. He sometimes does have difficulty because he gets up frequently in the night to go the bathroom but overall tolerates it well. Polysomnogram was performed in [place] on 09-03-2023. pAHI-4% was 41, Supine pAHI-4% was 40.8, Non- supine pAHI-4% was N/A, Estimated REM pAHI-4% was 42.3. There is a note subsequent to the sleep study but suggest that they were waiting for the results of the sleep study where they increased the outgoing amplitude to 4.2, the pulse width to 60, the rate to 40, and the max stim to 4. It then appears as though the patient left the area and never had follow-up. There was some concern that possibly the inspire was not working appropriately due to the results of the sleep study with the inspire on. PMHx: Active problems - Computerized Problem List is the source for the followin. History of fall 2. Exposure to potentially hazardous substance ([facility] [id number]) 3. History of cholecystectomy 4. Chronic obstructive pulmonary disease 5. HTN - Hypertension ([facility] [id number]) 6. Hearing Loss ([facility] [id number]) 7. Tinnitus 8. Alcohol Dependence ([facility] [id number]) 9. Delgadillo's Esophagus ([facility] [id number]) 10. Chronic rhinitis 11. Insomnia ([facility] [id number]) 12. Obstructive Sleep Apnea of Adult ([facility] [id number]) 13. Hyperlipidemia ([facility] [id number]) 14. OA - Osteoarthritis ([facility] [id number]) Service Connected Disabilities with % Eligibility: SC LESS THAN 50% VERIFIED Total S/C %: 10 HYPERTENSIVE VASCULAR DISEASE 0% S/C TINNITUS 10% S/C IMPAIRED HEARING 0% S/C MEDS: Active Outpatient Medications (including Supplies): ATORVASTATIN CALCIUM 40MG TAB TAKE ONE-HALF TABLET BY HOLD MOUTH ONCE DAILY Indication: FOR HIGH CHOLESTEROL CARVEDILOL 25MG TAB TAKE ONE TABLET BY MOUTH TWICE DAILY ACTIVE Indication: FOR HIGH BLOOD PRESSURE FLUTICAS 250/SALMETEROL 50 INHL DISK 60 INHALE 1 PUFF BY ACTIVE MOUTH TWICE DAILY - RINSE MOUTH AFTER USE Indication: FOR BRONCHOSPASM PREVENTION WITH COPD FOLIC ACID 1MG TAB TAKE ONE TABLET BY MOUTH ONCE DAILY ACTIVE VITAMIN/NUTRITION SUPPLEMENT Indication: FOR INADEQUATE FOLIC ACID LOSARTAN 25MG TAB TAKE ONE TABLET BY MOUTH ONCE DAILY FOR ACTIVE BLOOD PRESSURE/HEART Indication: FOR HIGH BLOOD PRESSURE MULTIVIT/OPHTH AREDS2/LUTE/ZEAX CAP/TAB TAKE 1 CAPSULE BY ACTIVE MOUTH TWICE DAILY IN THE MORNING AND EVENING, WITH FOOD Indication: FOR VITAMIN SUPPLEMENTATION OMEPRAZOLE 20MG EC CAP TAKE TWO CAPSULES BY MOUTH TWICE ACTIVE DAILY Indication: FOR GASTROESOPHAGEAL REFLUX DISEASE THIAMINE 100MG TAB TAKE ONE TABLET BY MOUTH ONCE DAILY ACTIVE Indication: FOR DEFICIENCY IN THIAMINE OR VITAMIN B1 TRAZODONE HCL 100MG TAB TAKE ONE-HALF TABLET BY MOUTH AT ACTIVE BEDTIME Indication: FOR INSOMNIA ASSOCIATED WITH DEPRESSION ALL: SESAME Fam Hx: Non - contributory ROS: Denies any other relavent ROS Vitals Enter at: Jun 04, 2024@13:10:06 BP: 178/92 P: 64 R: 16 T: 96.9 216.4 lb [98.16 kg] (06/04/2024 13:10) BMI: 32.0 CONSTITUTION: GENERAL APPEARANCE:Well developed, well nourished and groomed. No apparent acute or chronic distress. HEAD, FACE, SALIVARY GLANDS AND TMJ: Palpation of Parotid and Submandibular glands: Normal. Facial Mobility: Normal. EAR, NOSE, MOUTH AND THROAT: Pinnas - normal. Otoscopic exam: HEARING AIDS REMOVED FOR THE EXAMINATION RIGHT EAR: External auditory canal normal, tympanic membrane mobile LEFT EAR: External auditory canal normal, tympanic membrane mobile Nasal Interior: Turbinates and middle meatus - Inferior turbinates normal. MILD CLEAR RHINITIS Normal mucosa with no swelling, polyps, active bleeding or evidence of bleeding. Lips, Teeth and Gums: Lips normal. Oral Cavity and Oropharynx: Oral mucosa with normal color and moisture. Anterior 2/3rds of tongue normal. Breath quality normal. Hard palate normal. Normal floor of mouth, Posterior pharynx normal. MALLAMPATI 3 NECK AND THYROID: Neck: no adenopathy; no neck masses. CHEST WALL SHOWS WELL-HEALED INCISION WITH A SUBCUTANEOUS INSPIRE DEVICE ON THE RIGHT CHEST, AND ELECTRODE GOING TO THE BASE OF TONGUE RESPIRATORY: Respiratory effort normal. LYMPH NODES: Neck nodes: normal. NEUROLOGIC: Higher integrative functions: Normal orientation, memory, attention span and concentration, language, and fund of knowledge. Cranial nerves: Cranial nerves II-XII grossly intact and symmetrical. PSYCHIATRIC: Mood and affect: normal and appropriate to the situation. LOCAL TITLE: SLEEP CONSULT RESULT STANDARD TITLE: SLEEP MEDICINE CONSULT DATE OF NOTE: SEPTEMBER 03, 2023@11:30 ENTRY DATE: SEPTEMBER 06, 2023@14:22:21 AUTHOR: CLEMENTE PADILLA EXP COSIGNER: URGENCY: STATUS: COMPLETED [facility] [address] [facility] HOME SLEEP APNEA TEST- WatchPAT IDENTIFICATION: Name (Last, First): ALEENA GUAJARDO : 1945 Referred by: Not Available Study date: 09/06/2023 PATIENT HISTORY: 78 year old Male with BMI of 32 (weight 216 lbs, height 69 inches) Relevant history: ObesityHTN, GERD, Insomnia, MAURICIO s/p INSPIRE Relevant medication(s): CANNABINOID OIL STUDY DETAILS: - Total Recording Time 6 hrs. 44 min. - Study start time 02:52:43 AM - Study stop time 09:37:11 AM - Technically valid sleep time 6 hrs. 6 min. - REM was [PAT_REM%_TST]% of technically valid sleep time BODY POSITION - Supine sleep was 6 hrs. 9 min. (98.4% of EST) - Non-Supine sleep was 6 min. (1.6% of EST) RESPIRATORY PARAMETERS: - pAHI-4% was 41 - Supine pAHI-4% was 40.8 - Non-supine pAHI-4% was N/A - Estimated REM pAHI-4% was 42.3 - Central pAHI-4% was 1 - pRDI was 41 - Snoring >50dB for 28.3% of sleep time - Oxygen desaturation index (SUKHWINDER-4%) was 40.7 - Mean oxygen saturation was 90% - Lowest oxygen saturation was 73% - Saturations < 90%: 103.1 minutes (27.4% of EST) - Saturations <= 88%: 82.5 minutes (22% of EST) HEART RATE STATISTICS (BPM) - Mean: 63; Min: 49; Max: 89 IMPRESSION: - Study demonstrated adequate sampling of recording time with sufficient technical quality. - Severe Obstructive Sleep Apnea(MAURICIO) - Sleep Related Hypoxemia - Patient snored 28.3% during the sleep. PLAN: - Patient will be contacted to discuss study results. - Weight management and regular exercise should be initiated or continued. - Avoid alcohol, sedatives and other HOST COORDINATOR depressants that may worsen sleep apnea and disrupt normal sleep architecture. - Consider positional therapy to avoid supine position during sleep. - Patient should have follow up in INSPIRE clinic to adjust device as needed. If INPSIRE is not working, can consider alternative therapy such as CPAP in future. /timur/ CLEMENTE PADILLA MD Staff Physician Signed: 09/06/2023 14:22 Assessment/Plan JUN 04, 2024: 79-year-old male status post implant of the Inspire device in [place] on 01-14-2021. Patient has been using it well since that time. He states that he had a home sleep study performed on 09-03-2023 and was told that he should get an in lab polysomnogram. He travels between this area, [place], and [place] to see his children and he is planning on being here for several months because he is also in need of a knee replacement. Overall he finds the inspire device very useful. He sometimes does have difficulty because he gets up frequently in the night to go the bathroom but overall tolerates it well. Polysomnogram was performed in [place] on 09-03-2023. pAHI-4% was 41, Supine pAHI-4% was 40.8, Non- supine pAHI-4% was N/A, Estimated REM pAHI-4% was 42.3. There is a note subsequent to the sleep study but suggest that they were waiting for the results of the sleep study where they increased the outgoing amplitude to 4.2, the pulse width to 60, the rate to 40, and the max stim to 4. It then appears as though the patient left the area and never had follow-up. There was some concern that possibly the inspire was not working appropriately due to the results of the sleep study with the inspire on. Physical exam shows patient with a Mallampati 3 and implanted inspire on the chest wall. Obstructive sleep apnea -patient has severe obstructive sleep apnea. He believes that the inspire is doing its job however looking at the sleep study done in August it does not appear to be alleviating his apnea. I have therefore ordered an inpatient sleep study to confirm this and then we will determine whether his device is in fact working and needs to be adjusted or if there is a problem with the device. All questions were answered. Patient does move around the country a lot spending time at all 3 of his children's homes but assures me he is planning to be here for at least several months as he thinks he is going to be having a knee replacement in the future. Patient shared with me that one of his children is a daughter that he has recently connected within the last 10 years from [place]. She lives in [place] and they have become very close and he has traveled to [facility] several times subsequently. Complete encounter includes: Review of past medical records Time spent with patient including obtaining history, physical exam, shared decision making, procedures, counseling and answering questions. Post visit documentation to include but not limited to medication and lab ordering. Total time = Minimum 45 min MEDICATION RECONCILIATION Outpatient: Has the patient been taking medications as documented in the EMLR? YES: The patient has been taking medications as documented in the EMLR. Essential Medication List for Review used to complete this medication reconciliation. INCLUDED IN THIS LIST: Alphabetical list of active outpatient prescriptions dispensed from this [facility] (local) and dispensed from another [place] or [facility] facility (remote) as well as [...] whether with a VA or non-VA provider. JLV Link Data on this list may not be complete. Please check JLV. Allergies/ADRs (Tool #5) FACILITY ALLERGY/ADR -------- [facility] [place] [facility] Med Recon Katherine (Tool #1) INCLUDED IN THIS LIST: Alphabetical list of active outpatient prescriptions dispensed from this [place] (local) and dispensed from another [place] or [facility] facility (remote) as well as inpatient orders (local pending and active), local clinic medications, locally documented non-VA medications, and local prescriptions that have or been discontinued in the past 90 days. Non-VA Meds Last Documented On: Data not found NOTE The display of VA prescriptions dispensed from another [place] or [facility] facility (remote) is limited to active outpatient prescription entries matched to National Drug File at the originating site and may not include some items such as investigational drugs, compounds, etc. NOT INCLUDED IN THIS LIST: Medications self-entered by the patient into personal health records (i.e. Halalati) are NOT included in this list. Non-VA medications documented outside this [place], remote inpatient orders (regardless of status) and remote clinic medications are NOT included in this list. The patient and provider must always discuss medications the patient is taking, regardless of where the medication was dispensed or obtained. Remote ATORVASTATIN CA 40MG TAB TAKE ONE-HALF TABLET BY MOUTH EVERY DAY FOR CHOLESTEROL Last Filled: 05/24/24 (Active at [facility]) Rx Expiration Date: 02/20/25 Days Supply: 90 OUTPT ATORVASTATIN CALCIUM 40MG TAB (Status = On Hold) TAKE ONE-HALF TABLET BY MOUTH ONCE DAILY FOR HIGH CHOLESTEROL Rx# [id number] Last Released: Qty/Days Supply: 45 Rx Expiration Date: 04/18/25 Refills Remainin Indication: FOR HIGH CHOLESTEROL Remote CARBOXYMETHYLCELLULOSE NA 0.5% SOLN,OPH INSTILL 1 DROP IN BOTH EYES FOUR TIMES A DAY FOR DRY EYES Last Filled: 07/12/23 (Active at [facility]) Rx Expiration Date: 07/12/24 Days Supply: 90 OUTPT CARVEDILOL 25MG TAB (Status = Active) TAKE ONE TABLET BY MOUTH TWICE DAILY FOR HIGH BLOOD PRESSURE Rx# [id number] Last Released: 04/19/24 Qty/Days Supply: 180 Rx Expiration Date: 04/18/25 Refills Remainin Indication: FOR HIGH BLOOD PRESSURE OUTPT FLUTICAS 250/SALMETEROL 50 INHL DISK 60 (Status = Active) INHALE 1 PUFF BY MOUTH TWICE DAILY FOR BRONCHOSPASM PREVENTION WITH COPD - RINSE MOUTH AFTER USE Rx# [id number] Last Released: 04/19/24 Qty/Days Supply: Rx Expiration Date: 04/18/25 Refills Remainin Indication: FOR BRONCHOSPASM PREVENTION WITH COPD OUTPT FOLIC ACID 1MG TAB (Status = Active) TAKE ONE TABLET BY MOUTH ONCE DAILY VITAMIN/NUTRITION SUPPLEMENT Rx# [id number] Last Released: 04/19/24 Qty/Days Supply: Rx Expiration Date: 04/18/25 Refills Remainin Indication: FOR INADEQUATE FOLIC ACID OUTPT LOSARTAN 25MG TAB (Status = Active) TAKE ONE TABLET BY MOUTH ONCE DAILY FOR BLOOD PRESSURE/HEART Rx# [id number] Last Released: 05/29/24 Qty/Days Supply: 90 Rx Expiration Date: 05/27/25 Refills Remainin Indication: FOR HIGH BLOOD PRESSURE Remote LOSARTAN 50MG TAB TAKE ONE TABLET BY MOUTH EVERY DAY FOR BLOOD PRESSURE Last Filled: 04/04/24 (Active at [facility]) Rx Expiration Date: 07/19/24 Days Supply: 90 OUTPT MULTIVIT/OPHTH AREDS2/LUTE/ZEAX CAP/TAB (Status = Active) TAKE 1 CAPSULE BY MOUTH TWICE DAILY FOR VITAMIN SUPPLEMENTATION IN THE MORNING AND EVENING, WITH FOOD Rx# [id number] Last Released: 04/19/24 Qty/Days Supply: 240/90 Rx Expiration Date: 04/18/25 Refills Remainin Indication: FOR VITAMIN SUPPLEMENTATION Remote MULTIVIT/OPHTH AREDS2/LUTEIN/ZEAXANTHIN CAP/TAB TAKE 1 CAPSULE BY MOUTH TWICE A DAY . ONE CAPSULE IN THE MORNING AND ONE CAPSULE IN THE EVENING. FOR AGE RELATED MACULAR DEGENERATION. Last Filled: 07/12/23 (Active at [facility]) Rx Expiration Date: 07/12/24 Days Supply: 90 OUTPT OMEPRAZOLE 20MG EC CAP (Status = Active) TAKE TWO CAPSULES BY MOUTH TWICE DAILY FOR GASTROESOPHAGEAL REFLUX DISEASE Rx# [id number] Last Released: 04/19/24 Qty/Days Supply: 360/90 Rx Expiration Date: 04/18/25 Refills Remainin Indication: FOR GASTROESOPHAGEAL REFLUX DISEASE OUTPT THIAMINE 100MG TAB (Status = Active) TAKE ONE TABLET BY MOUTH ONCE DAILY FOR DEFICIENCY IN THIAMINE OR VITAMIN B1 Rx# [id number] Last Released: 04/19/24 Qty/Days Supply: 100/90 Rx Expiration Date: 04/18/25 Refills Remainin Indication: FOR DEFICIENCY IN THIAMINE OR VITAMIN B1 OUTPT TRAZODONE HCL 100MG TAB (Status = Active) TAKE ONE-HALF TABLET BY MOUTH AT BEDTIME FOR INSOMNIA ASSOCIATED WITH DEPRESSION Rx# [id number] Last Released: 05/29/24 Qty/Days Supply: 45/90 Rx Expiration Date: 05/27/25 Refills Remainin Indication: FOR INSOMNIA ASSOCIATED WITH DEPRESSION SUPPLIES /timur/ Teresa Harvey MD Otolaryngology Signed: 06/04/2024 15:00 TEREAS HARVEY [facility]
--- OUTSIDE RECORDS SUMMARY | 2024-08-01 00:58 | XMS_ITS | Encounter Summary ---
Author Name [facility] Organization [facility] Address [address] [place] [address] Care Team Providers Care Facing End Trimmer Name Role Phone YAMILKA SPENCER Primary Care [...] Name Patient's Relationship to Policy Haile [employer] [facility] (WNR) MEDICARE ADVANTAGE [facility] ([facility]) August 28, 2022 [id number] [phone] DEUCE GUAJARDO PATIENT MEDICARE (WNR) MEDICARE () PART B Oct 29, 2015 PART B [id number] [phone] DEUCE GUAJARDO PATIENT MEDICARE (WNR) MEDICARE () PART B Oct 29, 2015 PART B [id number] [phone] DEUCE GUAJARDO PATIENT MEDICARE (WNR) MEDICARE () PART B Oct 29, 2015 PART B [id number] [phone] DEUCE GUAJARDO PATIENT MEDICARE (WNR) MEDICARE (M) PART B Oct 29, 2015 PART B [id number] [phone] DEUCE GUAJARDO PATIENT MEDICARE (WNR) MEDICARE () PART A Jul 29, 2012 PART A [id number] [phone] DEUCE UGAJARDO PATIENT MEDICARE (WNR) MEDICARE (M) PART A Jul 29, 2012 PART A [id number] [phone] DEUCE GUAJARDO PATIENT MEDICARE (WNR) MEDICARE (M) PART A Jul 29, 2012 PART A [id number] DEUCE GUAJARDO PATIENT MEDICARE (WNR) MEDICARE (M) PART B Jul 29, 2012 PART B [id number] DEUCE GUAJARDO PATIENT MEDICARE (WNR) MEDICARE (M) PART A Jul 29, 2012 PART A [id number] [id number] DEUCE GUAJARDO PATIENT MEDICARE (WNR) MEDICARE (M) PART A Jul 29, 2012 PART A [id number] DEUCE GUAJARDO PATIENT MEDICARE PART D (WNR) MEDICARE (M) PART D Apr 30, 2017 PART D [id number] [phone] DEUCE GUAJARDO PATIENT Selected Encounter This section includes the information on record at [place] for the Encounter. Date/Time Encounter Type Encounter Description Reason Provider Source Jul 07, 2024 01:00 PM HEARING AID XM[facility]SL[facility] ICD-10-CM H90.3 Sensorineural hearing loss, bilateral SENIOR,DAMARIS L E Encounter Template Text not used by DC Assessments - Encounter Diagnoses This section includes the primary and secondary diagnoses documented for the Encounter. Date/Time Primary/Secondary Diagnosis Diagnosis Name Provider Source Jul 07, 2024 02:00 PM PRIMARY Sensorineural hearing loss, bilateral SENIOR[facility]IS L [facility] [place] [facility] Jul 07, 2024 02:00 PM SECONDARY Tinnitus, bilateral SENIOR,DAMARIS L [facility] [place] [facility] Plan of Treatment: Future Appointments (+ [...] Appointment Type Appointme nt Facility Name Jul 24, 2024 09:30 AM AMBULATORY - MEDICINE [facility] [place] [facility] Jul 24, 2024 10:00 AM AMBULATORY - MEDICINE [facility] [place] [facility] Jul 31, 2024 11:00 AM AMBULATORY - REHAB MEDICIN E [facility] [place] [facility] Aug 04, 2024 09:00 AM AMBULATORY - MEDICINE [facility] [place] [facility] Aug 05, 2024 01:00 PM AMBULATORY - MEDICINE [facility] [place] [facility] Aug 07, 2024 09:00 AM [facility] [place]IC[place] [facility] [place] [facility] Aug 07, 2024 09:00 AM AMBULATORY - MEDICINE [facility] [place] [facility] September 08, 2024 03:00 PM AMBULATORY - PSYCHIATRY [facility] [place] [facility] Nov 24, 2024 09:00 AM AMBULATORY - MEDICINE [facility] [place] [facility] Dec 02, 2024 01:00 PM AMBULATORY - [place]ICINE [facility] [place] [facility] Dec 02, 2024 01:00 PM AMBULATORY - MEDICINE DC C [facility] [place] [facility] Active, Pending, and Scheduled Orders This [...] PM Consult Order COMMUNITY CARE-SLEEP STUDY Cons Skid Worker's Choice [facility] [place] [facility] Jun 10, 2024 02:52 PM Consult Order COMMUNITY CARE-BH PSYCHOTHERAPY Cons Skid Worker's Choice [facility] Jul 25, 2024 12:00 AM Laboratory - Chemistry Order BASIC METABOLIC PANEL (non-fasting) BLOOD (SST-SERUM) [facility] [place] [facility] Jul 25, 2024 12:00 AM Laboratory - Chemistry Order CBC AND DIFF (AUTO) BLOOD (LAV-BLOOD) [facility] [place] [facility] Jul 25, 2024 12:00 AM Laboratory - Chemistry Order LIVER FUNCTION BLOOD (SST-SERUM) SP [facility] Jul 25, 2024 03:29 PM Consult Order VISN 1 [facility] NEPHROLOGY OUTPT IFC CT Cons Skid Worker's Choice [facility] Lab Results: +/- 30 days of the [...] Range Comment Jul 24, 2024 10:30 AM [facility] CBC AND DIFF (AUTO) Specimen Type: BLOOD No comment entered. Ordering Provider: PAULINA GONZALEZ Report Released Date/Time: Jul 09, 2024 08:44 AM Reporting Lab: [address] [address] Performing Lab: [address] [address] WBC 12.79 10*3/uL H 4.50-11.00 RBC 3.58 [...] 10*3/uL 0.00-0.00 Jul 24, 2024 10:30 AM [facility] BASIC METABOLIC PANEL (non-fasting) Specimen Type: SERUM No comment entered. Ordering Provider: PAULINA GONZALEZ Report Released Date/Time: Jul 09, 2024 08:44 AM Reporting Lab: [address] [address] Performing Lab: [address] [address] UREA NITROGEN 26 mg/dL H 7-25 GLUCOSE 122 mg/dL H 65-100 SODIUM 135 mmol/L 135-145 POTASSIUM 3.8 mmol/L 3.5-5.0 CHLORIDE 102 mmol/L 100-110 CO2 23 meq/L 20-30 CALCIUM 8.3 mg/dL L 8.5-10.2 CREATININE, Serum 2.28 mg/dL H 0.50-1.40 eGFR(CKD-EPI 2020) 29 mL/min L >60 Jul 24, 2024 10:30 AM [facility] LIVER FUNCTION Specimen Type: SERUM No comment entered. Ordering Provider: PAULINA GONZALEZ Report Released Date/Time: Jul 09, 2024 08:44 AM Reporting Lab: [address] [address] Performing Lab: [address] [address] PROTEIN,TOTAL 6.2 g/dL 6.0-8.3 ALBUMIN 3.6 g/dL 3.5-5.0 ALKALINE PHOSPHATASE 92 U/L 40-150 AST 15 U/L 5-34 ALT 18 U/L BILIRUBIN, TOTAL 1.6 mg/dL H 0.2-1.2 BILIRUBIN, DIRECT 0.6 mg/dL H 0-0.5 Jul 24, 2024 10:30 AM [facility] LIPID PANEL, NON FASTING Specimen Type: SERUM No comment entered. Ordering Provider: PAULINA GONZALEZ Report Released Date/Time: Jul 09, 2024 08:44 AM Reporting Lab: [facility] [address] [facility] [address] Performing Lab: [facility] [address] [address] [facility] [address] CHOLESTEROL 111 mg/dL TRIGLYCERIDE 180 mg/dL H 0-150 LDL calculated 33 mg/dL 0-129 CHOL/HDL 2.6 HDL CHOLESTEROL 42 mg/dL 40-60 Jul 24, 2024 10:30 AM [facility] CREATININE (eGFR 2020) Specimen Type: SERUM No comment entered. Ordering Provider: PAULINA GONZALEZ Report Released Date/Time: Jul 09, 2024 08:44 AM Reporting Lab: [facility] [address] [facility] [address] Performing Lab: [facility] [address] [facility] [address] CREATININE, Serum 2.28 mg/dL H 0.50-1.40 eGFR(CKD-EPI 2020) 29 mL/min L >60 Jun 24, 2024 02:15 PM [facility] BASIC METABOLIC PANEL (non-fasting) Specimen Type: SERUM No comment entered. Ordering Provider: PAULINA GONZALEZ Report Released Date/Time: May 26, 2024 03:44 PM Reporting Lab: [facility] [address] [facility] [address] Performing Lab: [address] [address] UREA NITROGEN 13 mg/dL 7-25 GLUCOSE 102 mg/dL H 65-100 SODIUM 140 mmol/L 135-145 POTASSIUM 4.6 mmol/L 3.5-5.0 CHLORIDE 107 mmol/L 100-110 CO2 24 meq/L 20-30 CALCIUM 8.5 mg/dL 8.5-10.2 CREATININE, Serum 1.21 mg/dL 0.50-1.40 eGFR(CKD-EPI 2020) 61 mL/min >60 Encounter Notes: All associated encounter notes This section contains the clinical notes associated to the Encounter. Date/Time Encounter Note(s) Provider Source Jul 07, 2024 11:55 AM AUDIOLOGY E & M NO TE: LOCAL TITLE: AUDIOLOGY CLINIC STANDARD TITLE: AUDIOLOGY E & M NOTE DATE OF NOTE: JUL 07, 2024@11:55 ENTRY DATE: JUL 07, 2024@11:55:11 AUTHOR: DAMARIS RESENDIZ COSIGNER: URGENCY: STATUS: COMPLETED AUDIOLOGY CLINIC Has ADDENDA Dx CODE: H90.3-Sensorineural Hearing Loss, Bilateral APPOINTMENT TYPE: Hearing Re-Evaluation and Hearing Aid Selection BACKGROUND/HISTORY: was seen today for a hearing re-evaluation and hearing aid selection appointment, unaccompanied. He was fit on 07/26/21 with PHONAK AUDEO P90-R RICs at the [facility] and reports a decline in benefit from these devices. He is [facility] aids [facility] due to the age of the current devices. His last hearing evaluation was on 06/27/21 at the [facility] and he believes his hearing has declined somewhat since then. [place] reports a longstanding history of constant bilateral tinnitus which has remained stable. He denies recent vertigo, but notes that several years ago he had BPPV which was resolved with exercises from a PT. 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 Medical history includes: Active problems - Computerized Problem List is the source for the followin. History of fall 2. Exposure to potentially hazardous substance ([facility] [id number]) 3. History of cholecystectomy 4. Chronic obstructive pulmonary disease 5. HTN - Hypertension ([facility] [id number]) 6. Hearing Loss ([facility] [id number]) 7. Tinnitus 8. Alcohol Dependence ([facility] [id number]) 9. Delgadillo's Esophagus ([facility] [id number]) 10. Chronic rhinitis 11. Insomnia ([facility] [id number]) 12. Obstructive Sleep Apnea of Adult ([facility] [id number]) 13. Hyperlipidemia ([facility] [id number]) 14. OA - Osteoarthritis ([facility] [id number]) ASSESSMENT: Results of today's testing are as follows: Otoscopy was WNL bilaterally. Normal tympanograms obtained bilaterally. Pure tone audiometric testing under headphones in the right ear revealed normal hearing at 250 Hz, sloping to a mild to moderately-severe sensorineural hearing loss from 500-8000 Hz. Testing in the left ear revealed normal hearing from 250-500 Hz, sloping to a mild to moderately-severe sensorineural hearing loss from 7513-9887 Hz. SRT WORD RECOGNITION (Recorded [place] CNC 1/2 Word List) Right 10dBHL 88% @ 80dBHL/50dBm Left 10dBHL 88% @ 80dBHL/50dBm No significant changes were found when compared to the 2021 audiological evaluation. HEARING AID CHECK: Both hearing aids were cleaned and checked, and found to be in good working order. Domes, wax guards, and retention wires were replaced. Microphones were cleared of debris. Hearing aids were reprogrammed to today's audiogram and a firmware update was performed. HEARING AID SELECTION: Different hearing aid options were discussed. He is interested in technology similar to his previous hearing aids. He denies having a pacemaker and would like to remain with rechargeable devices. PHONAK AUDEO I90-R RICs were selected and ordered in ROES with size 2 M receivers and small vented domes. EDUCATION/COUNSELING: The patient was counseled re: today's hearing test results. He demonstrated satisfactory understanding of the education and plan, and was given the opportunity to ask questions throughout today's visit. PLAN: 1. RTC in 3-4 weeks for a 60 minute hearing aid fitting appointment. 2. Hearing re-evaluation in 3-5 years, or sooner if change in hearing occurs. Patient Education Education provided on the following topics: Hearing test results Education provided to: P Response to Education: VU [place] Patient P Family F Significant Other SO Verbalizes Understanding VU Returns Demonstration RD Performs Independently PI Lacks Comprehension LC Refused Education RE Not Applicable NA /AMADA Oconnor, [facility]A STAFF RAW MATERIAL HANDLER Signed: 07/08/2024 07:25 07/15/2024 ADDENDUM STATUS: COMPLETED Hearing aids received and certified, upcoming appointment scheduled on 07/31/2024. /timur/ EDVIN GUARDADO [facility]iology [facility] [employer] Supervisor Signed: 07/15/2024 15:44 DAMARIS RESENDIZ [place] [facility]
--- OUTSIDE RECORDS SUMMARY | 2024-08-01 00:58 | XMS_ITS ---
ELD CBOC MULTIVIT/OP HTH AREDS2/LUTE IN/ZEAXANTH IN CAP/TAB TAKE 1 CAPSULE BY MOUTH TWICE A DAY . ONE CAPSULE IN THE MORNING AND ONE CAPSULE IN THE EVENING. 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 ORAL 07/12/2024 [id number] 4 Eliasbeth GIORDANO 2023 240 [facility] OMEPRAZOLE 20MG CAP,EC TAKE TWO CAPSULES BY MOUTH TWICE DAILY FOR GASTROES OPHAGEAL REFLUX DISEASE ORAL ACTIVE 04/18/2025 [id number] Dave GONZALEZ [address] [facility]LD [facility] OMEPRAZOLE 20MG CAP,EC TAKE TWO CAPSULES BY MOUTH 30 MINUTES BEFORE BREAKFAS T FOR GERD TAKE 30 MINUTES BEFORE EATING. 90 DAYS SUPPLY MAX IF FOR SHORT TERM THERAPY. ORAL 02/20/2024 [id number] 4 VIVIAN BRAVO 2022 180 [facility] OMEPRAZOLE 20MG CAP,EC TAKE 1 CAPSULE ORALLY EVERY MORNING ORAL ACTIVE SUSAN SCOTT 2016 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 It does not include entries that were removed or entered in error. Substance Category Reaction Severity Reaction type Status Date Reported Comments Source SESAME Propensity to adverse reactions to substance (finding) Anaphylaxis active 4 [facility] SESAME SEEDS Propensity to adverse reactions to substance (finding) Airway constriction , Urticaria active 3 [facility] SILICONE Propensity to adverse reactions to drug (finding) Eruption active 8 [facility] Immunizations Combined list of available immunizations from the Department of Defense and [facility] Affairs facilities. Immunization Series Date Given Administered By Site Reaction Lot Number CVX Code Drug Dinkey Brakeman Status Comments Source COVID-19 (MODERNA), MRNA, LNP-S, PF, 50 MCG/0.5 ML (AGES 12+ YEARS) 2024 YANDEL GOLDEN RIGHT DELTO ID [id number] 312 complet ed [facility] RSV, BIVALENT, PROTEIN SUBUNIT RSVPREF, DILUENT RECONSTITUTED , 0.5 ML, PF 2024 YANDEL GOLDEN LEFT DELTO ID [id number] 305 complet ed [facility] INFLUENZA, HIGH-DOSE, TRIVALENT, PF 2023 MATHEW GONZALEZ RIGHT DELTO ID [id number] 135 complet ed [facility] TDAP 2023 MATHEW GONZALEZ LEFT DELTO ID [id number] 115 complet ed [facility] INFLUENZA, INJECTABLE, MDCK, PRESERVATIVE FREE, QUADRIVALENT 2022 AKSHAT FOLEY RIGHT DELTO ID [id number] 171 complet ed [facility] COVID-19 (MODERNA), MRNA, LNP-S, BIVALENT BOOSTER, PF, 50 MCG/0.5 ML OR 25MCG/0.25 ML DOSE 2021 LUI PECK LEFT DELTO ID [id number] 229 complet ed [facility] COVID-19 (MODERNA), MRNA, LNP-S, PF, 100 MCG/0.5ML DOSE OR 50 MCG/0.25ML DOSE 2 2021 207 complet ed Lot#: [id number] [facility] COVID-19 (MODERNA), MRNA, LNP-S, PF, 100 MCG/0.5ML DOSE OR 50 MCG/0.25ML DOSE 3 2020 207 complet ed [facility] INFLUENZA, INJECTABLE, QUADRIVALENT, PRESERVATIVE FREE 2020 150 complet ed [facility] COVID-19 (MODERNA), MRNA, LNP-S, PF, 100 MCG/0.5 ML DOSE 2 2020 207 complet ed MOD; [id number]; 1 [facility] COVID-19 (MODERNA), MRNA, LNP-S, PF, 100 MCG/0.5 ML DOSE 1 2020 207 complet ed MOD; [id number]; 1 [facility] INFLUENZA, INJECTABLE, QUADRIVALENT, PRESERVATIVE FREE 2019 150 complet ed [facility] INFLUENZA, INJECTABLE, QUADRIVALENT, PRESERVATIVE FREE 2019 150 complet ed [facility] ZOSTER RECOMBINANT 2 2019 187 complet ed [facility] ZOSTER RECOMBINANT 2019 187 complet ed [facility] ZOSTER RECOMBINANT 1 2018 187 complet ed [facility] TDAP 2018 115 complet ed NA [facility] PNEUMOCOCCAL POLYSACCHARID E [id number] 2018 33 complet ed merck lot [id number] exp 12/17 [facility] TDAP 2018 115 complet ed [facility] INFLUENZA, INJECTABLE, QUADRIVALENT, PRESERVATIVE FREE 2017 150 complet ed [facility] PNEUMOCOCCAL CONJUGATE PCV 13 2016 133 complet ed NA [facility] INFLUENZA, SEASONAL, INJECTABLE 2016 141 complet ed [facility] Results Combined list of recent chemistry, hematology and other laboratory results from Department of Defense and Veterans Affairs, ranging from 15 months to all on record, depending upon the facility. Order Name Results Value Reference Range Date Interpretation Specimen Comments Source CBC AND DIFF (AUTO) LEUKOCYTES [#/VOLUME] IN BLOOD BY AUTOMATED COUNT 12.79 10*3/u L 4.50 - 11.00 07/24 H Specimen Type: BLOOD No comment entered. Ordering Provider: ASH GONZALEZ Report Released Date/Time: Jul 09, 2024 08:44 AM Reporting Lab: [facility] [address] [facility] [address] Performing Lab: [facility] [address] [facility] [address] [facility] CBC AND DIFF (AUTO) ERYTHROCYTE S [#/VOLUME] IN BLOOD BY AUTOMATED COUNT 3.58 10*6/u L 4.23 - 5.66 07/24 L Specimen Type: BLOOD No comment entered. Ordering Provider: ASH GONZALEZ Report Released Date/Time: Jul 09, 2024 08:44 AM Reporting Lab: [facility] [address] [facility] [address] Performing Lab: [facility] [address] [facility] [address] [facility] CBC AND DIFF (AUTO) HEMOGLOBIN [MASS/VOLUM E] IN BLOOD 11.8 g/dL 12.8 - 17 07/24 L Specimen Type: BLOOD No comment entered. Ordering Provider: ASH GONZALEZ Report Released Date/Time: Jul 09, 2024 08:44 AM Reporting Lab: [facility] [facility] [address] [facility] [address] Performing Lab: [facility] [address] [address] [facility] CBC AND DIFF (AUTO) HEMATOCRIT [VOLUME FRACTION] OF BLOOD BY AUTOMATED COUNT 35.2 39.2 - 50.4 07/24 L Specimen Type: BLOOD No comment entered. Ordering Provider: ASH GONZALEZ Report Released Date/Time: Jul 09, 2024 08:44 AM Reporting Lab: [facility] [facility] [address] [facility] [address] Performing Lab: [facility] [place] [facility] [address] [facility] [address] [facility] CBC AND DIFF (AUTO) MCV [ENTITIC VOLUME] BY AUTOMATED COUNT 98.3 fL 82 - 99 07/24 Specimen Type: BLOOD No comment entered. Ordering Provider: ASH GONZALEZ Report Released Date/Time: Jul 09, 2024 08:44 AM Reporting Lab: [facility] [facility] [address] [facility] [address] Performing Lab: [facility] [address] [address] [facility] CBC AND DIFF (AUTO) MCHC [MASS/VOLUM E] BY AUTOMATED COUNT 33.5 g/dL 30.8 - 35.1 07/24 Specimen Type: BLOOD No comment entered. Ordering Provider: ASH GONZALEZ Report Released Date/Time: Jul 09, 2024 08:44 AM Reporting Lab: [facility] [facility] [address] [facility] [address] Performing Lab: [facility] [place] [facility] [address] [facility] [address] [facility] CBC AND DIFF (AUTO) PLATELETS [#/VOLUME] IN BLOOD BY AUTOMATED COUNT 175 10*3/u L 140 - 360 07/24 Specimen Type: BLOOD No comment entered. Ordering Provider: ASH GONZALEZ Report Released Date/Time: Jul 09, 2024 08:44 AM Reporting Lab: [facility] [address] [address] Performing Lab: [facility] [place] [address] [address] [facility] CBC AND DIFF (AUTO) PLATELET MEAN VOLUME [ENTITIC VOLUME] IN BLOOD BY AUTOMATED COUNT 11.5 fL 9.2 - 12.4 07/24 Specimen Type: BLOOD No comment entered. Ordering Provider: ASH GONZALEZ Report Released Date/Time: Jul 09, 2024 08:44 AM Reporting Lab: [facility] [address] [address] Performing Lab: [facility] [place] [facility] [address] [facility] [address] [facility] CBC AND DIFF (AUTO) ERYTHROCYTE DISTRIBUTIO N WIDTH [RATIO] BY AUTOMATED COUNT 12.5 12.0 - 16.0 07/24 Specimen Type: BLOOD No comment entered. Ordering Provider: ASH GONZALEZ Report Released Date/Time: Jul 09, 2024 08:44 AM Reporting Lab: [facility] [address] [address] Performing Lab: [facility] [address] [facility] [address] [facility] CBC AND DIFF (AUTO) MONOCYTES [#/VOLUME] IN BLOOD BY AUTOMATED COUNT 1.14 10*3/u L 0.30 - 1.10 07/24 H Specimen Type: BLOOD No comment entered. Ordering Provider: ASH GONZALEZ Report Released Date/Time: Jul 09, 2024 08:44 AM Reporting Lab: [facility] [address] [facility] [address] Performing Lab: [facility] [address] [facility] [address] [facility] CBC AND DIFF (AUTO) MCH [ENTITIC MASS] BY AUTOMATED COUNT 33.0 pg 26.2 - 32.6 07/24 H Specimen Type: BLOOD No comment entered. Ordering Provider: ASH GONZALEZ Report Released Date/Time: Jul 09, 2024 08:44 AM Reporting Lab: [facility] [address] [facility] [address] Performing Lab: [facility] [address] [place] [phone] [facility] CBC AND DIFF (AUTO) NEUTROPHILS /100 LEUKOCYTES IN BLOOD BY AUTOMATED COUNT 80.0 43.7 - 75.8 07/24 H Specimen Type: BLOOD No comment entered. Ordering Provider: ASH GONZALEZ Report Released Date/Time: Jul 09, 2024 08:44 AM Reporting Lab: [facility] [address] [place] [phone] Performing Lab: [facility] [address] [place] [phone] [facility] CBC AND DIFF (AUTO) LYMPHOCYTES /100 LEUKOCYTES IN BLOOD BY AUTOMATED COUNT 8.4 14.0 - 42.3 07/24 L Specimen Type: BLOOD No comment entered. Ordering Provider: ASH GONZALEZ Report Released Date/Time: Jul 09, 2024 08:44 AM Reporting Lab: [facility] [place] [facility] [address] [facility] [address] Performing Lab: [facility] [address] [facility] [address] [facility] CBC AND DIFF (AUTO) MONOCYTES/1 00 LEUKOCYTES IN BLOOD BY AUTOMATED COUNT 8.9 5.1 - 13.7 07/24 Specimen Type: BLOOD No comment entered. Ordering Provider: ASH GONZALEZ Report Released Date/Time: Jul 09, 2024 08:44 AM Reporting Lab: [facility] [address] [facility] [address] Performing Lab: [facility] [place] [facility] [address] [facility] [address] [facility] CBC AND DIFF (AUTO) EOSINOPHILS /100 LEUKOCYTES IN BLOOD BY AUTOMATED COUNT 2.0 0.4 - 6.8 07/24 Specimen Type: BLOOD No comment entered. Ordering Provider: ASH GONZALEZ Report Released Date/Time: Jul 09, 2024 08:44 AM Reporting Lab: [facility] [place] [facility] [address] [facility] [address] Performing Lab: [facility] [place] [facility] [address] [facility] [address] [facility] CBC AND DIFF (AUTO) BASOPHILS/1 00 LEUKOCYTES IN BLOOD BY AUTOMATED COUNT 0.2 0.1 - 2.0 07/24 Specimen Type: BLOOD No comment entered. Ordering Provider: ASH GONZALEZ Report Released Date/Time: Jul 09, 2024 08:44 AM Reporting Lab: [facility] [place] [facility] [address] [facility] [address] Performing Lab: [facility] [place] [address] [address] [facility] CBC AND DIFF (AUTO) NEUTROPHILS [#/VOLUME] IN BLOOD BY AUTOMATED COUNT 10.21 10*3/u L 2.20 - 7.60 07/24 H Specimen Type: BLOOD No comment entered. Ordering Provider: ASH GONZALEZ Report Released Date/Time: Jul 09, 2024 08:44 AM Reporting Lab: [facility] [address] [facility] [address] Performing Lab: [facility] [address] [facility] [address] [facility] CBC AND DIFF (AUTO) LYMPHOCYTES [#/VOLUME] IN BLOOD BY AUTOMATED COUNT 1.08 10*3/u L 1.00 - 3.20 07/24 Specimen Type: BLOOD No comment entered. Ordering Provider: ASH GONZALEZ Report Released Date/Time: Jul 09, 2024 08:44 AM Reporting Lab: [facility] [address] [facility] [address] Performing Lab: [facility] [address] [place] [phone] [facility] CBC AND DIFF (AUTO) EOSINOPHILS [#/VOLUME] IN BLOOD BY AUTOMATED COUNT 0.26 10*3/u L 0.03 - 0.44 07/24 Specimen Type: BLOOD No comment entered. Ordering Provider: ASH GONZALEZ Report Released Date/Time: Jul 09, 2024 08:44 AM Reporting Lab: [facility] [address] [facility] [address] Performing Lab: [facility] [address] [place] [phone] [facility] CBC AND DIFF (AUTO) BASOPHILS [#/VOLUME] IN BLOOD BY AUTOMATED COUNT 0.03 10*3/u L 0.01 - 0.13 07/24 Specimen Type: BLOOD No comment entered. Ordering Provider: ASH GONZALEZ Report Released Date/Time: Jul 09, 2024 08:44 AM Reporting Lab: [facility] [address] [place] [phone] Performing Lab: [facility] [address] [place] [phone] [facility] CBC AND DIFF (AUTO) IMMATURE GRANULOCYTE S/100 LEUKOCYTES IN BLOOD BY AUTOMATED COUNT 0.5 0.0 - 0.7 07/24 Specimen Type: BLOOD No comment entered. Ordering Provider: ASH GONZALEZ Report Released Date/Time: Jul 09, 2024 08:44 AM Reporting Lab: [facility] [address] [address] Performing Lab: [facility] [place] [facility] [address] [facility] [address] [facility] CBC AND DIFF (AUTO) IMMATURE GRANULOCYTE S [#/VOLUME] IN BLOOD BY AUTOMATED COUNT 0.07 10*3/u L 0.00 - 0.06 07/24 H Specimen Type: BLOOD No comment entered. Ordering Provider: ASH GONZALEZ Report Released Date/Time: Jul 09, 2024 08:44 AM Reporting Lab: [facility] [address] [address] Performing Lab: [facility] [place] [address] [address] [facility] CBC AND DIFF (AUTO) NUCLEATED ERYTHROCYTE S/100 LEUKOCYTES [RATIO] IN BLOOD BY AUTOMATED COUNT 0.0 0.0 - 0.0 07/24 Specimen Type: BLOOD No comment entered. Ordering Provider: ASH GONZALEZ Report Released Date/Time: Jul 09, 2024 08:44 AM Reporting Lab: [facility] [address] [address] Performing Lab: [facility] [address] [place] [phone] [facility] CBC AND DIFF (AUTO) NUCLEATED ERYTHROCYTE S [#/VOLUME] IN BLOOD BY AUTOMATED COUNT 0.00 10*3/u L 0.00 - 0.00 07/24 Specimen Type: BLOOD No comment entered. Ordering Provider: ASH GONZALEZ Report Released Date/Time: Jul 09, 2024 08:44 AM Reporting Lab: [facility] [address] [facility] [address] Performing Lab: [facility]ITALRNOR[facility] INFIRMARYTRN R[facility]ON HOSPITALUSETS [facility] [address] [facility] [address] [facility]ITALRNOR[facility] INFIRMARYTRN R[facility]ERTON HOSPITALUSE [facility] BASIC METABOLIC PANEL (non-fast ing) UREA NITROGEN [MASS/VOLUM E] IN SERUM OR PLASMA 26 mg/dL 7 - 25 07/24 H Specimen Type: SERUM No comment entered. Ordering Provider: ASH GONZALEZ Report Released Date/Time: Jul 09, 2024 08:44 AM Reporting Lab: [facility]ITALRNOR[facility] BALDW[facility] INFIRMARYTRN [facility]ON [facility]OSPITALUSESMALLPOX [facility] [address] [facility] [address] Performing Lab: [facility] HOSPITALRMOODY HOSPITALN RIVERTON HOSPITALUSE[address] [address] [facility] BASIC METABOLIC PANEL (non-fast ing) GLUCOSE [MASS/VOLUM E] IN SERUM OR PLASMA 122 mg/dL 65 - 100 07/24 H Specimen Type: SERUM No comment entered. Ordering Provider: ASH GONZALEZ Report Released Date/Time: Jul 09, 2024 08:44 AM Reporting Lab: [facility]OSPITALRNORTH BALDWIN INFIRMARYTRN RIVERTON [facility]OSPITALUSE[address] [address] Performing Lab: [facility]ITALRNOR[facility] BAL[facility] INFIRMARYTRN RIVERTON [facility]OSPITALUSE[address] [address] [facility] BASIC METABOLIC PANEL (non-fast ing) SODIUM [MOLES/VOLU ME] IN SERUM OR PLASMA 135 mmol/L 135 - 145 07/24 Specimen Type: SERUM No comment entered. Ordering Provider: ASH GONZALEZ Report Released Date/Time: Jul 09, 2024 08:44 AM Reporting Lab: [facility]PITALRNORTH BALDW[facility] INFIRMARYTRN RIVERTON HOSPITALUSESMALLPOX [facility]OSPITAL [address] [facility] [address] Performing Lab: [facility]ITALRNORTH BALDW[facility] INFIRMARYTRN RIVERTON [facility]OSPITALUSE[address] [address] [facility] BASIC METABOLIC PANEL (non-fast ing) POTASSIUM [MOLES/VOLU ME] IN SERUM OR PLASMA 3.8 mmol/L 3.5 - 5.0 07/24 Specimen Type: SERUM No comment entered. Ordering Provider: ASH GONZALEZ Report Released Date/Time: Jul 09, 2024 08:44 AM Reporting Lab: [facility] [place] [facility] [address] [facility] [address] Performing Lab: [facility] [place] [facility] [address] [facility] [address] [facility] [place] BASIC METABOLIC PANEL (non-fast ing) CHLORIDE [MOLES/VOLU ME] IN SERUM OR PLASMA 102 mmol/L 100 - 110 07/24 Specimen Type: SERUM No comment entered. Ordering Provider: ASH GONZALEZ Report Released Date/Time: Jul 09, 2024 08:44 AM Reporting Lab: [facility] [place] [facility] [address] [facility] [address] Performing Lab: [facility] [place] [address] [address] [facility] HOSPITALRL WSTRN [place] [facility] BASIC METABOLIC PANEL (non-fast ing) CARBON DIOXIDE, TOTAL [MOLES/VOLU ME] IN SERUM OR PLASMA 23 meq/L 20 - 30 07/24 Specimen Type: SERUM No comment entered. Ordering Provider: ASH GONZALEZ Report Released Date/Time: Jul 09, 2024 08:44 AM Reporting Lab: [facility] [place] [facility] [address] [facility] [address] Performing Lab: [facility] [place] [address] [address] [facility] [place] [facility] BASIC METABOLIC PANEL (non-fast ing) CALCIUM [MASS/VOLUM E] IN SERUM OR PLASMA 8.3 mg/dL 8.5 - 10.2 07/24 L Specimen Type: SERUM No comment entered. Ordering Provider: ASH GONZALEZ Report Released Date/Time: Jul 09, 2024 08:44 AM Reporting Lab: [facility] [place] [facility] [address] [facility] [address] Performing Lab: [facility] [place] [facility] [address] [facility] [address] [facility] [place] [facility] BASIC METABOLIC PANEL (non-fast ing) CREATININE [MASS/VOLUM E] IN SERUM OR PLASMA 2.28 mg/dL 0.50 - 1.40 07/24 H Specimen Type: SERUM No comment entered. Ordering Provider: ASH GONZALEZ Report Released Date/Time: Jul 09, 2024 08:44 AM Reporting Lab: [facility] HOSPITALRL TRN [place] [address] [address] Performing Lab: [facility] HOSPITALRL WSTRN [facility] HOSPITALUSETS [facility] [address] [facility] [address] [facility] HOSPITALRMOODY HOSPITALN RIVERTON HOSPITALUSE [facility] BASIC METABOLIC PANEL (non-fast ing) GLOMERULAR FILTRATION RATE/1.73 SQ M.PREDICTED [VOLUME RATE/AREA] IN SERUM, PLASMA OR BLOOD BY CREATININE- BASED FORMULA (CKD-EPI 2020) 29 mL/min 60 07/24 L Specimen Type: SERUM No comment entered. Ordering Provider: ASH GONZALEZ Report Released Date/Time: Jul 09, 2024 08:44 AM Reporting Lab: [facility] HOSPITALRL TRN RIVERTON HOSPITALUSETS [facility] [address] [facility] [address] Performing Lab: [facility] HOSPITALRL TRN [facility] HOSPITALUSE[address] [address] [facility] LIVER FUNCTION PROTEIN [MASS/VOLUM E] IN SERUM OR PLASMA 6.2 g/dL 6.0 - 8.3 07/24 Specimen Type: SERUM No comment entered. Ordering Provider: ASH GONZALEZ Report Released Date/Time: Jul 09, 2024 08:44 AM Reporting Lab: [facility] HOSPITALRL [place] [address] [address] Performing Lab: [facility] HOSPITALRL TRN [facility]ITALUSE[address] [address] [facility] LIVER FUNCTION ALBUMIN [MASS/VOLUM E] IN SERUM OR PLASMA BY BROMOCRESOL PURPLE (BCP) DYE BINDING METHOD 3.6 g/dL 3.5 - 5.0 07/24 Specimen Type: SERUM No comment entered. Ordering Provider: ASH GONZALEZ Report Released Date/Time: Jul 09, 2024 08:44 AM Reporting Lab: [facility] [place] [facility] [address] [facility] [address] Performing Lab: [facility] [place] [facility] [address] [facility] [address] [facility] [place] [facility] LIVER FUNCTION ALKALINE PHOSPHATASE [ENZYMATIC ACTIVITY/VO LUME] IN SERUM OR PLASMA 92 U/L 40 - 150 07/24 Specimen Type: SERUM No comment entered. Ordering Provider: ASH GONZALEZ Report Released Date/Time: Jul 09, 2024 08:44 AM Reporting Lab: [facility] [place] [facility] [address] [facility] [address] Performing Lab: [facility] [place] [facility] [address] [facility] [address] [facility] [place] [facility] LIVER FUNCTION ASPARTATE AMINOTRANSF ERASE [ENZYMATIC ACTIVITY/VO LUME] IN SERUM OR PLASMA BY WITH P-5'-P 15 U/L 5 - 34 07/24 Specimen Type: SERUM No comment entered. Ordering Provider: ASH GONZALEZ Report Released Date/Time: Jul 09, 2024 08:44 AM Reporting Lab: [facility] [place] [facility] [address] [facility] [address] Performing Lab: [facility] [place] [facility] [address] [facility] [address] [facility] [place] [facility] LIVER FUNCTION ALANINE AMINOTRANSF ERASE [ENZYMATIC ACTIVITY/VO LUME] IN SERUM OR PLASMA BY WITH P-5'-P 18 U/L 07/24 Specimen Type: SERUM No comment entered. Ordering Provider: ASH GONZALEZ Report Released Date/Time: Jul 09, 2024 08:44 AM Reporting Lab: [facility] [place] [facility] [address] [facility] [address] Performing Lab: [facility] [place] [facility] [address] [facility] [address] [facility] [place] [facility] LIVER FUNCTION BILIRUBIN.T OTAL [MASS/VOLUM E] IN SERUM OR PLASMA 1.6 mg/dL 0.2 - 1.2 07/24 H Specimen Type: SERUM No comment entered. Ordering Provider: ASH GONZALEZ Report Released Date/Time: Jul 09, 2024 08:44 AM Reporting Lab: [facility] [place] [facility] [address] [facility] [address] Performing Lab: [facility] [place] [place] [facility] [address] [facility] [address] [facility] [place] [facility] LIVER FUNCTION BILIRUBIN.D IRECT [MASS/VOLUM E] IN SERUM OR PLASMA 0.6 mg/dL 0 - 0.5 07/24 H Specimen Type: SERUM No comment entered. Ordering Provider: ASH GONZALEZ Report Released Date/Time: Jul 09, 2024 08:44 AM Reporting Lab: [facility] [place] [address] [address] Performing Lab: [facility] [place] [address] [address] [facility] [place] [facility] LIPID PANEL, NON FASTING CHOLESTEROL [MASS/VOLUM E] IN SERUM OR PLASMA 111 mg/dL 07/24 Specimen Type: SERUM No comment entered. Ordering Provider: ASH GONZALEZ Report Released Date/Time: Jul 09, 2024 08:44 AM Reporting Lab: [facility] [place] [place] [facility] [address] [facility] [address] Performing Lab: [facility] [place] [address] [address] [facility] [place] [facility] LIPID PANEL, NON FASTING TRIGLYCERID E [MASS/VOLUM E] IN SERUM OR PLASMA 180 mg/dL 0 - 150 07/24 H Specimen Type: SERUM No comment entered. Ordering Provider: ASH GONZALEZ Report Released Date/Time: Jul 09, 2024 08:44 AM Reporting Lab: [facility] [place] [facility] [address] [facility] [address] Performing Lab: [facility] [place] [address] [address] [facility] [place] [facility] LIPID PANEL, NON FASTING CHOLESTEROL IN LDL [MASS/VOLUM E] IN SERUM OR PLASMA BY CALCULATION 33 mg/dL 0 - 129 07/24 Specimen Type: SERUM No comment entered. Ordering Provider: ASH GONZALEZ Report Released Date/Time: Jul 09, 2024 08:44 AM Reporting Lab: [facility] [place] [address] [address] Performing Lab: [facility] [place] [place] [facility] [address] [facility] [address] [facility] [place] [facility] LIPID PANEL, NON FASTING CHOLESTEROL .TOTAL/CHOL ESTEROL IN HDL [MASS RATIO] IN SERUM OR PLASMA 2.6 07/24 Specimen Type: SERUM No comment entered. Ordering Provider: ASH GONZALEZ Report Released Date/Time: Jul 09, 2024 08:44 AM Reporting Lab: [facility] [place] [address] [address] Performing Lab: [facility] [place] [address] [address] [facility] [place] [facility] LIPID PANEL, NON FASTING CHOLESTEROL IN HDL [MASS/VOLUM E] IN SERUM OR PLASMA 42 mg/dL 40 - 60 07/24 Specimen Type: SERUM No comment entered. Ordering Provider: ASH GONZALEZ Report Released Date/Time: Jul 09, 2024 08:44 AM Reporting Lab: [facility] [place] [address] [address] Performing Lab: [facility] [place] [facility] [address] [facility] [address] [facility] [place] [facility] CREATININ E (eGFR 2020) CREATININE [MASS/VOLUM E] IN SERUM OR PLASMA 2.28 mg/dL 0.50 - 1.40 07/24 H Specimen Type: SERUM No comment entered. Ordering Provider: ASH GONZALEZ Report Released Date/Time: Jul 09, 2024 08:44 AM Reporting Lab: [facility] [place] [address] [address] Performing Lab: [facility] [address] [facility] [address] [facility] CREATININ E (eGFR 2020) GLOMERULAR FILTRATION RATE/1.73 SQ M.PREDICTED [VOLUME RATE/AREA] IN SERUM, PLASMA OR BLOOD BY CREATININE- BASED FORMULA (CKD-EPI 2020) 29 mL/min 60 07/24 L Specimen Type: SERUM No comment entered. Ordering Provider: ASH GONZALEZ Report Released Date/Time: Jul 09, 2024 08:44 AM Reporting Lab: [facility] [address] [facility] [address] Performing Lab: [facility] [address] [facility] [address] [facility] BASIC METABOLIC PANEL (non-fast ing) UREA NITROGEN [MASS/VOLUM E] IN SERUM OR PLASMA 13 mg/dL 7 - 25 06/24 Specimen Type: SERUM No comment entered. Ordering Provider: ASH GONZALEZ Report Released Date/Time: May 26, 2024 03:44 PM Reporting Lab: [facility] [address] [facility] [address] Performing Lab: [facility] [address] [facility] [address] [facility] BASIC METABOLIC PANEL (non-fast ing) GLUCOSE [MASS/VOLUM E] IN SERUM OR PLASMA 102 mg/dL 65 - 100 06/24 H Specimen Type: SERUM No comment entered. Ordering Provider: ASH GONZALEZ Report Released Date/Time: May 26, 2024 03:44 PM Reporting Lab: [facility] [address] [facility] [address] Performing Lab: [address] [address] [facility] BASIC METABOLIC PANEL (non-fast ing) SODIUM [MOLES/VOLU ME] IN SERUM OR PLASMA 140 mmol/L 135 - 145 06/24 Specimen Type: SERUM No comment entered. Ordering Provider: ASH GONZALEZ Report Released Date/Time: May 26, 2024 03:44 PM Reporting Lab: [facility] [place] [facility] [address] [facility] [address] Performing Lab: [facility] [place] [facility] [address] [facility] [address] [facility] [place] [facility] BASIC METABOLIC PANEL (non-fast ing) POTASSIUM [MOLES/VOLU ME] IN SERUM OR PLASMA 4.6 mmol/L 3.5 - 5.0 06/24 Specimen Type: SERUM No comment entered. Ordering Provider: ASH GONZALEZ Report Released Date/Time: May 26, 2024 03:44 PM Reporting Lab: [facility] [place] [facility] [address] [facility] [address] Performing Lab: [facility] [place] [address] [address] [facility] [place] [facility] BASIC METABOLIC PANEL (non-fast ing) CHLORIDE [MOLES/VOLU ME] IN SERUM OR PLASMA 107 mmol/L 100 - 110 06/24 Specimen Type: SERUM No comment entered. Ordering Provider: ASH GONZALEZ Report Released Date/Time: May 26, 2024 03:44 PM Reporting Lab: [facility] [place] [facility] [address] [facility] [address] Performing Lab: [facility] [place] [address] [address] [facility] [place] [facility] BASIC METABOLIC PANEL (non-fast ing) CARBON DIOXIDE, TOTAL [MOLES/VOLU ME] IN SERUM OR PLASMA 24 meq/L 20 - 30 06/24 Specimen Type: SERUM No comment entered. Ordering Provider: ASH GONZALEZ Report Released Date/Time: May 26, 2024 03:44 PM Reporting Lab: [facility] [place] [facility] [address] [facility] [address] Performing Lab: [facility] [place] [address] [address] [facility] [place] [facility] BASIC METABOLIC PANEL (non-fast ing) CALCIUM [MASS/VOLUM E] IN SERUM OR PLASMA 8.5 mg/dL 8.5 - 10.2 06/24 Specimen Type: SERUM No comment entered. Ordering Provider: ASH GONZALEZ Report Released Date/Time: May 26, 2024 03:44 PM Reporting Lab: [address] [address] Performing Lab: [address] [address] [facility] BASIC METABOLIC PANEL (non-fast ing) CREATININE [MASS/VOLUM E] IN SERUM OR PLASMA 1.21 mg/dL 0.50 - 1.40 06/24 Specimen Type: SERUM No comment entered. Ordering Provider: ASH GONZALEZ Report Released Date/Time: May 26, 2024 03:44 PM Reporting Lab: [address] [address] Performing Lab: [address] [address] [facility] BASIC METABOLIC PANEL (non-fast ing) GLOMERULAR FILTRATION RATE/1.73 SQ M.PREDICTED [VOLUME RATE/AREA] IN SERUM, PLASMA OR BLOOD BY CREATININE- BASED FORMULA (CKD-EPI 2020) 61 mL/min 60 06/24 Specimen Type: SERUM No comment entered. Ordering Provider: ASH GONZALEZ Report Released Date/Time: May 26, 2024 03:44 PM Reporting Lab: [address] [address] Performing Lab: [address] [address] [facility] VITAMIN D 25-OH (Therapy monitor) 25-HYDROXYV ITAMIN D3 [MASS/VOLUM E] IN SERUM OR PLASMA 40 ng/mL 30 - 100 05/20 Specimen Type: SERUM Comment: Vitamin D, 25-Hydroxy reports concentrati ons of two common forms, 25-OHD2 and 25-OHD3. 25-OHD3 indicates both endogenous production and supplementa tion. 25-OHD2 is an indicator of exogenous sources such as diet or supplementa tion. Therapy is based on measurement of Total 25-OHD, with levels <20 ng/mL indicative of Vitamin D deficiency, while levels between 20 ng/mL and 30 ng/mL suggest insufficien cy. Optimal levels are > or = 30 ng/mL. For additional information , please refer to [email or web address] [email or web address] Q199 (This link is being provided for information al/ educational purposes only.) This test was developed and its analytical performance characteris tics have been determined by [facility] [place], [place]. It has not been cleared or approved by the U.S. Food and Drug Administrat ion. This assay has been validated pursuant to the CLIA regulations and is used for clinical purposes. This test was developed and its analytical performance characteris tics have been determined by [facility] [place], [place]. It has not been cleared or approved by the U.S. Food and Drug Administrat ion. This assay has been validated pursuant to the CLIA regulations and is used for clinical purposes. Test Performed by [email or web address], [facility], [address] [place] [address] Cole Rodriguez M.D., Ph.D., Director of Laboratorie s , CLIA [id number] TEST PERFORMED AT: , Ordering Provider: ASH GONZALEZ Report Released Date/Time: May 16, 2024 11:37 AM Reporting Lab: [facility] [address] [facility] [address] Performing Lab: [facility] [address] [address] [facility] VITAMIN D 25-OH (Therapy monitor) 25-HYDROXYV ITAMIN D3 [MASS/VOLUM E] IN SERUM OR PLASMA 8 ng/mL 05/20 Specimen Type: SERUM Comment: Vitamin D, 25-Hydroxy reports concentrati ons of two common forms, 25-OHD2 and 25-OHD3. 25-OHD3 indicates both endogenous production and supplementa tion. 25-OHD2 is an indicator of exogenous sources such as diet or supplementa tion. Therapy is based on measurement of Total 25-OHD, with levels <20 ng/mL indicative of Vitamin D deficiency, while levels between 20 ng/mL and 30 ng/mL suggest insufficien cy. Optimal levels are > or = 30 ng/mL. For additional information , please refer to http://educ [email or web address]/faq/FA Q110 (This link is being provided for information al/ educational purposes only.) This test was developed and its analytical performance characteris tics have been determined by [facility] [place], [place]. It has not been cleared or approved by the U.S. Food and Drug Administrat ion. This assay has been validated pursuant to the CLIA regulations and is used for clinical purposes. This test was developed and its analytical performance characteris tics have been determined by [facility] [place], [place]. It has not been cleared or approved by the U.S. Food and Drug Administrat ion. This assay has been validated pursuant to the CLIA regulations and is used for clinical purposes. Test Performed by [email or web address], [facility], [address] [place] [address] Cole Rodriguez M.D., Ph.D., Director of Laboratorie s , CLIA [id number] TEST PERFORMED AT: , Ordering Provider: ASH GONZALEZ Report Released Date/Time: May 16, 2024 11:37 AM Reporting Lab: [facility] [address] [facility] [address] Performing Lab: [facility] [address] [address] [facility] yourdeliveryMON[facility]FI[facility] VITAMIN D 25-OH (Therapy monitor) CALCIFEROL (VIT D2) [MASS/VOLUM E] IN SERUM OR PLASMA 32 ng/mL 05/20 Specimen Type: SERUM Comment: Vitamin D, 25-Hydroxy reports concentrati ons of two common forms, 25-OHD2 and 25-OHD3. 25-OHD3 indicates both endogenous production and supplementa tion. 25-OHD2 is an indicator of exogenous sources such as diet or supplementa tion. Therapy is based on measurement of Total 25-OHD, with levels <20 ng/mL indicative of Vitamin D deficiency, while levels between 20 ng/mL and 30 ng/mL suggest insufficien cy. Optimal levels are > or = 30 ng/mL. For additional information , please refer to http://educ [email or web address] Q199 (This link is being provided for information al/ educational purposes only.) This test was developed and its analytical performance characteris tics have been determined by [facility] [place], [place]. It has not been cleared or approved by the U.S. Food and Drug Administrat ion. This assay has been validated pursuant to the CLIA regulations and is used for clinical purposes. This test was developed and its analytical performance characteris tics have been determined by [facility] [place], [place]. It has not been cleared or approved by the U.S. Food and Drug Administrat ion. This assay has been validated pursuant to the CLIA regulations and is used for clinical purposes. Test Performed by [email or web address], [facility], [address] [place] [address] Cole Rodriguez M.D., Ph.D., Director of Laboratorie s , CLIA [id number] TEST PERFORMED AT: , Ordering Provider: ASH GONZALEZ Report Released Date/Time: May 16, 2024 11:37 AM Reporting Lab: [facility] MASSSmartvueUSESMALLPOX [facility] [address] [facility] [address] Performing Lab: [facility] M[facility]CHUS[facility]ALL[facility] [id number] [place] [address] [facility] FOLATE (WROX) FOLATE [MASS/VOLUM E] IN SERUM OR PLASMA 18.4 ng/mL 5.2 05/20 Specimen Type: SERUM No comment entered. Ordering Provider: ASH GONZALEZ Report Released Date/Time: May 16, 2024 11:37 AM Reporting Lab: [facility] BitpagosUSESMALLPOX [facility] [address] [facility] [address] Performing Lab: [facility] [place]N [place] [facility] [address] [address] [facility]ITALRNORTH BALDWIN INFIRMARYTRN [facility]ON HOSPITALUSE [facility] BASIC METABOLIC PANEL (non-fast ing) UREA NITROGEN [MASS/VOLUM E] IN SERUM OR PLASMA 17 mg/dL 7 - 25 05/20 Specimen Type: SERUM No comment entered. Ordering Provider: ASH GONZALEZ Report Released Date/Time: May 16, 2024 11:37 AM Reporting Lab: [facility]ITALRL TRN RIVERTON HOSPITALUSETS [facility] [address] [facility] [address] Performing Lab: [facility] HOSPITALRMOODY HOSPITALN RIVERTON HOSPITALUSESMALLPOX HOSPITAL [address] [facility] [address] [facility] BASIC METABOLIC PANEL (non-fast ing) GLUCOSE [MASS/VOLUM E] IN SERUM OR PLASMA 106 mg/dL 65 - 100 05/20 H Specimen Type: SERUM No comment entered. Ordering Provider: ASH GONZALEZ Report Released Date/Time: May 16, 2024 11:37 AM Reporting Lab: [facility]OSPITALRNORTH BALDWIN INFIRMARYTRN RIVERTON HOSPITALUSESMALLPOX [facility]OSP[facility] [address] [facility] [address] Performing Lab: [facility]ITALRNORTH BALDWIN INFIRMARYTRN RIVERTON HOSPITALUSESMALLPOX [facility]OSP[facility] [address] [facility] [address] [facility] BASIC METABOLIC PANEL (non-fast ing) SODIUM [MOLES/VOLU ME] IN SERUM OR PLASMA 143 mmol/L 135 - 145 05/20 Specimen Type: SERUM No comment entered. Ordering Provider: ASH GONZALEZ Report Released Date/Time: May 16, 2024 11:37 AM Reporting Lab: [facility]OSPITALRNORTH BALDWIN INFIRMARYTRN RIVERTON HOSPITALUSESMALLPOX [facility]OSP[facility] [address] [facility] [address] Performing Lab: [facility]ITALRNORTH BALDWIN INFIRMARYTRN RIVERTON HOSPITALUSESMALLPOX [facility] [address] [facility] [address] [facility] BASIC METABOLIC PANEL (non-fast ing) POTASSIUM [MOLES/VOLU ME] IN SERUM OR PLASMA 4.4 mmol/L 3.5 - 5.0 05/20 Specimen Type: SERUM No comment entered. Ordering Provider: ASH GONZALEZ Report Released Date/Time: May 16, 2024 11:37 AM Reporting Lab: [facility] [place] [facility] [address] [facility] [address] Performing Lab: [facility] [place] [facility] [address] [facility] [address] [facility] [place] [facility] BASIC METABOLIC PANEL (non-fast ing) CHLORIDE [MOLES/VOLU ME] IN SERUM OR PLASMA 109 mmol/L 100 - 110 05/20 Specimen Type: SERUM No comment entered. Ordering Provider: ASH GONZALEZ Report Released Date/Time: May 16, 2024 11:37 AM Reporting Lab: [facility] [place] [facility] [address] [facility] [address] Performing Lab: [facility] [place] [facility] [address] [facility] [address] [facility]ITALRL WSTRN [facility] HOSPITALUSE [facility] BASIC METABOLIC PANEL (non-fast ing) CARBON DIOXIDE, TOTAL [MOLES/VOLU ME] IN SERUM OR PLASMA 25 meq/L 20 - 30 05/20 Specimen Type: SERUM No comment entered. Ordering Provider: ASH GONZALEZ Report Released Date/Time: May 16, 2024 11:37 AM Reporting Lab: [facility] [place] [facility] [address] [facility] [address] Performing Lab: [facility] [place] [address] [address] [facility] [place] [facility] BASIC METABOLIC PANEL (non-fast ing) CREATININE [MASS/VOLUM E] IN SERUM OR PLASMA 1.25 mg/dL 0.50 - 1.40 05/20 Specimen Type: SERUM No comment entered. Ordering Provider: ASH GONZALEZ Report Released Date/Time: May 16, 2024 11:37 AM Reporting Lab: [facility] [place] [facility] [address] [facility] [address] Performing Lab: [facility] [place] [facility] [address] [facility] [address] [facility] [place] [facility] BASIC METABOLIC PANEL (non-fast ing) GLOMERULAR FILTRATION RATE/1.73 SQ M.PREDICTED [VOLUME RATE/AREA] IN SERUM, PLASMA OR BLOOD BY CREATININE- BASED FORMULA (CKD-EPI 2020) 59 mL/min 60 05/20 L Specimen Type: SERUM No comment entered. Ordering Provider: ASH GONZALEZ Report Released Date/Time: May 16, 2024 11:37 AM Reporting Lab: [facility] [place] [facility] [address] [facility] [address] Performing Lab: [facility] [place] [facility] [address] [facility] [address] [facility] [place] [facility] CBC AND DIFF (AUTO) LEUKOCYTES [#/VOLUME] IN BLOOD BY AUTOMATED COUNT 6.37 10*3/u L 4.50 - 11.00 05/20 Specimen Type: BLOOD No comment entered. Ordering Provider: ASH GONZALEZ Report Released Date/Time: May 16, 2024 11:37 AM Reporting Lab: [facility] [place] [facility] [address] [facility] [address] Performing Lab: [facility] [place] [facility] [address] [facility] [address] [facility] [place] [facility] CBC AND DIFF (AUTO) ERYTHROCYTE S [#/VOLUME] IN BLOOD BY AUTOMATED COUNT 3.53 10*6/u L 4.23 - 5.66 05/20 L Specimen Type: BLOOD No comment entered. Ordering Provider: ASH GONZALEZ Report Released Date/Time: May 16, 2024 11:37 AM Reporting Lab: [facility] [place] [facility] [address] [facility] [address] Performing Lab: [facility] [place] [address] [address] [facility] [place] [facility] CBC AND DIFF (AUTO) HEMOGLOBIN [MASS/VOLUM E] IN BLOOD 12.0 g/dL 12.8 - 17 05/20 L Specimen Type: BLOOD No comment entered. Ordering Provider: ASH GONZALEZ Report Released Date/Time: May 16, 2024 11:37 AM Reporting Lab: [facility] [facility] [address] [facility] [address] Performing Lab: [facility] [place] [facility] [address] [facility] [address] [facility] CBC AND DIFF (AUTO) HEMATOCRIT [VOLUME FRACTION] OF BLOOD BY AUTOMATED COUNT 36.1 39.2 - 50.4 05/20 L Specimen Type: BLOOD No comment entered. Ordering Provider: ASH GONZALEZ Report Released Date/Time: May 16, 2024 11:37 AM Reporting Lab: [facility] [place] [facility] [address] [facility] [address] Performing Lab: [facility] [place] [facility] [address] [facility] [address] [facility]ITALRL WSTRN [place] TS [facility] CBC AND DIFF (AUTO) MCV [ENTITIC VOLUME] BY AUTOMATED COUNT 102.3 fL 82 - 99 05/20 H Specimen Type: BLOOD No comment entered. Ordering Provider: ASH GONZALEZ Report Released Date/Time: May 16, 2024 11:37 AM Reporting Lab: [facility] [place] [facility] [address] [facility] [address] Performing Lab: [facility] [place] [facility] [address] [facility] [address] [facility] [place] [facility] CBC AND DIFF (AUTO) MCHC [MASS/VOLUM E] BY AUTOMATED COUNT 33.2 g/dL 30.8 - 35.1 05/20 Specimen Type: BLOOD No comment entered. Ordering Provider: ASH GONZALEZ Report Released Date/Time: May 16, 2024 11:37 AM Reporting Lab: [facility] [place] [facility] [address] [facility] [address] Performing Lab: [facility] [place] [facility] [address] [facility] [address] [facility] [place] [facility] CBC AND DIFF (AUTO) PLATELETS [#/VOLUME] IN BLOOD BY AUTOMATED COUNT 170 10*3/u L 140 - 360 05/20 Specimen Type: BLOOD No comment entered. Ordering Provider: ASH GONZALEZ Report Released Date/Time: May 16, 2024 11:37 AM Reporting Lab: [facility] [place] [facility] [address] [facility] [address] Performing Lab: [facility] [place] [facility] [address] [facility] [address] [facility] CBC AND DIFF (AUTO) ERYTHROCYTE DISTRIBUTIO N WIDTH [RATIO] BY AUTOMATED COUNT 12.9 12.0 - 16.0 05/20 Specimen Type: BLOOD No comment entered. Ordering Provider: ASH GONZALEZ Report Released Date/Time: May 16, 2024 11:37 AM Reporting Lab: [facility] [place] [facility] [address] [facility] [address] Performing Lab: [facility] [place] [facility] [address] [facility] [address] [facility] CBC AND DIFF (AUTO) MONOCYTES [#/VOLUME] IN BLOOD BY AUTOMATED COUNT 0.82 10*3/u L 0.30 - 1.10 05/20 Specimen Type: BLOOD No comment entered. Ordering Provider: ASH GONZALEZ Report Released Date/Time: May 16, 2024 11:37 AM Reporting Lab: [facility] [address] [facility] [address] Performing Lab[facility] [address] [facility] [address] [facility] CBC AND DIFF (AUTO) MCH [ENTITIC MASS] BY AUTOMATED COUNT 34.0 pg 26.2 - 32.6 05/20 H Specimen Type: BLOOD No comment entered. Ordering Provider: ASH GONZALEZ Report Released Date/Time: May 16, 2024 11:37 AM Reporting Lab: [facility] [facility] [address] [facility] [address] Performing Lab: [facility] [address] [facility] [address] [facility] CBC AND DIFF (AUTO) NEUTROPHILS /100 LEUKOCYTES IN BLOOD BY AUTOMATED COUNT 65.2 43.7 - 75.8 05/20 Specimen Type: BLOOD No comment entered. Ordering Provider: ASH GONZALEZ Report Released Date/Time: May 16, 2024 11:37 AM Reporting Lab: [facility] [address] [facility] [address] Performing Lab: [facility] [address] [facility] [address] [facility] CBC AND DIFF (AUTO) LYMPHOCYTES /100 LEUKOCYTES IN BLOOD BY AUTOMATED COUNT 18.1 14.0 - 42.3 05/20 Specimen Type: BLOOD No comment entered. Ordering Provider: ASH GONZALEZ Report Released Date/Time: May 16, 2024 11:37 AM Reporting Lab: [facility] [address] [address] Performing Lab: [facility] [address] [facility] [address] [facility] CBC AND DIFF (AUTO) MONOCYTES/1 00 LEUKOCYTES IN BLOOD BY AUTOMATED COUNT 12.9 5.1 - 13.7 05/20 Specimen Type: BLOOD No comment entered. Ordering Provider: ASH GONZALEZ Report Released Date/Time: May 16, 2024 11:37 AM Reporting Lab: [facility] [address] [address] Performing Lab: [facility] [address] [facility] [address] [facility] CBC AND DIFF (AUTO) EOSINOPHILS /100 LEUKOCYTES IN BLOOD BY AUTOMATED COUNT 3.0 0.4 - 6.8 05/20 Specimen Type: BLOOD No comment entered. Ordering Provider: ASH GONZALEZ Report Released Date/Time: May 16, 2024 11:37 AM Reporting Lab: [facility] [address] [place] [phone] Performing Lab: [facility] [address] [place] [phone] [facility] CBC AND DIFF (AUTO) BASOPHILS/1 00 LEUKOCYTES IN BLOOD BY AUTOMATED COUNT 0.5 0.1 - 2.0 05/20 Specimen Type: BLOOD No comment entered. Ordering Provider: ASH GONZALEZ Report Released Date/Time: May 16, 2024 11:37 AM Reporting Lab: [facility] [address] [facility] [address] Performing Lab: [facility] [address] [facility] [address] [facility] CBC AND DIFF (AUTO) NEUTROPHILS [#/VOLUME] IN BLOOD BY AUTOMATED COUNT 4.16 10*3/u L 2.20 - 7.60 05/20 Specimen Type: BLOOD No comment entered. Ordering Provider: ASH GONZALEZ Report Released Date/Time: May 16, 2024 11:37 AM Reporting Lab: [facility] [address] [facility] [address] Performing Lab: [facility] [address] [facility] [address] [facility] CBC AND DIFF (AUTO) LYMPHOCYTES [#/VOLUME] IN BLOOD BY AUTOMATED COUNT 1.15 10*3/u L 1.00 - 3.20 05/20 Specimen Type: BLOOD No comment entered. Ordering Provider: ASH GONZALEZ Report Released Date/Time: May 16, 2024 11:37 AM Reporting Lab: [facility] [address] [facility] [address] Performing Lab: [facility] [address] [facility] [address] [facility] CBC AND DIFF (AUTO) EOSINOPHILS [#/VOLUME] IN BLOOD BY AUTOMATED COUNT 0.19 10*3/u L 0.03 - 0.44 05/20 Specimen Type: BLOOD No comment entered. Ordering Provider: ASH GONZALEZ Report Released Date/Time: May 16, 2024 11:37 AM Reporting Lab: [facility] [address] [facility] [address] Performing Lab: [facility] [address] [facility] [address] [facility] CBC AND DIFF (AUTO) BASOPHILS [#/VOLUME] IN BLOOD BY AUTOMATED COUNT 0.03 10*3/u L 0.01 - 0.13 05/20 Specimen Type: BLOOD No comment entered. Ordering Provider: ASH GONZALEZ Report Released Date/Time: May 16, 2024 11:37 AM Reporting Lab: [facility] [address] [facility] [address] Performing Lab: [facility] [address] [facility] [address] [facility] CBC AND DIFF (AUTO) IMMATURE GRANULOCYTE S/100 LEUKOCYTES IN BLOOD BY AUTOMATED COUNT 0.3 0.0 - 0.7 05/20 Specimen Type: BLOOD No comment entered. Ordering Provider: ASH GONZALEZ Report Released Date/Time: May 16, 2024 11:37 AM Reporting Lab: [facility] [address] [facility] [address] Performing Lab: [facility] [address] [facility] [address] [facility] CBC AND DIFF (AUTO) IMMATURE GRANULOCYTE S [#/VOLUME] IN BLOOD 0.02 10*3/u L 0.00 - 0.06 05/20 Specimen Type: BLOOD No comment entered. Ordering Provider: ASH GONZALEZ Report Released Date/Time: May 16, 2024 11:37 AM Reporting Lab: [facility] [address] [facility] [address] Performing Lab: [facility] [address] [facility] [address] [facility] CBC AND DIFF (AUTO) NRBC % 0.0 0.0 - 0.0 05/20 Specimen Type: BLOOD No comment entered. Ordering Provider: ASH GONZALEZ Report Released Date/Time: May 16, 2024 11:37 AM Reporting Lab: [facility] [address] [facility] [address] Performing Lab: [facility] [address] [facility] [address] [facility] CBC AND DIFF (AUTO) NRBC, ABS 0.00 10*3/u L 0.00 - 0.00 05/20 Specimen Type: BLOOD No comment entered. Ordering Provider: ASH GONZALEZ Report Released Date/Time: May 16, 2024 11:37 AM Reporting Lab: [facility] [address] [facility] [address] Performing Lab: [facility] [address] [facility] [address] [facility] Vital Signs Combined list of inpatient and outpatient Vital Signs from Department of Defense and Veterans Affairs, ranging from 12 months to all on record, depending upon the facility. Vital Sign Value Date Comments Source SYSTOLIC BLOOD PRESSURE 114 07/25/19 25 16:00:28 [facility] DIASTOLIC BLOOD PRESSURE 28 025 16:00:28 [facility] SYSTOLIC BLOOD PRESSURE 160 06/27/19 25 10:16:35 [facility] DIASTOLIC BLOOD PRESSURE 90 025 10:16:35 [facility] PULSE OXIMETRY 63 06/27/2024 10:16:35 [facility] SYSTOLIC BLOOD PRESSURE 178 06/04/19 25 13:10:06 [facility] DIASTOLIC BLOOD PRESSURE 92 025 13:10:06 [facility] PULSE OXIMETRY 97 06/04/2024 13:10:06 [facility] WEIGHT 216.4 06/04/2024 13:10:06 [facility] BMI 32 kg/m2 06/04/2024 13:10:06 [facility] PAIN 2 06/04/2024 13:10:06 [facility] TEMPERATURE 96.9 06/04/2024 13:10:06 [facility] PULSE 64 06/04/2024 13:10:06 [facility] RESPIRATION 16 06/04/2024 13:10:06 [facility] PULSE OXIMETRY 97 05/26/2024 15:06:32 [facility] WEIGHT 219.4 05/26/2024 15:06:32 [facility] BMI 32 kg/m2 05/26/2024 15:06:32 [facility] PAIN 4 05/26/2024 15:06:32 [facility] HEIGHT 69 05/26/2024 15:06:32 [facility] TEMPERATURE 97.7 05/26/2024 15:06:32 [facility] PULSE 58 05/26/2024 15:06:32 [facility] RESPIRATION 16 05/26/2024 15:06:32 [facility] SYSTOLIC BLOOD PRESSURE 120 04/17/20 24 08:53:19 [facility] DIASTOLIC BLOOD PRESSURE 70 024 08:53:19 [facility] PULSE OXIMETRY 94 04/17/2024 08:53:19 [facility] WEIGHT 215 04/17/2024 08:53:19 [facility] BMI 32 kg/m2 04/17/2024 08:53:19 [facility] PAIN 3 04/17/2024 08:53:19 [facility] HEIGHT 69 04/17/2024 08:53:19 [facility] TEMPERATURE 97.5 04/17/2024 08:53:19 [facility] PULSE 68 04/17/2024 08:53:19 [facility] RESPIRATION 16 04/17/2024 08:53:19 [facility] Encounters Combined list of: 1) Encounters from Department of Veterans Affairs facilities going backup to the last 18 months, not all [place] inpatient encounters are included; 2) Encounters from the Department of Defense facilities going backup to 280 months. Location Location Details Encounter Type Encounter Number Reason For Visit Attending Provider ADM Date DC Date Status Disposition Source [facility] HC PRO PHONE CALL 5-10 MIN [id number] Diagnos is: ICD-10- CM Z51.89 Encount er for other specifi ed afterca re FR LUCERO MELÉNDEZ R 02/02 [facility] OFFICE O/P EST MOD 30-39 MIN [id number] Diagnos is: ICD-10- CM R25.2 Cramp and spasm LENNY BRAVO R 03/21 [facility] Outpatient Encounter [id number] Louie GREEN 03/26 [facility] HC PRO PHONE CALL 21-30 MIN [id number] Diagnos is: ICD-10- CM Z51.89 Encount er for other specifi ed afterca re LETTY FOLEY S 04/04 [facility] Outpatient Encounter [id number] NALINI MORAN 05/01 [facility] MATHEUS SMPL CN NPGT PRGRMG [id number] Diagnos is: ICD-10- CM G47.33 Obstruc tive sleep apnea (adult) (pediat saroj) PATT ALVA 05/02 [facility] HC PRO PHONE CALL 11-20 MIN [id number] Diagnos is: ICD-10- CM Z51.89 Encount er for other specifi ed afterca aman LETTY FOLEY 05/03 [facility] HC PRO PHONE CALL 21-30 MIN [id number] Diagnos is: ICD-10- CM I10 Essenti al (primar y) hyperte LETTY Crocker 05/28 [facility] Outpatient Encounter [id number] 06/15 [facility] Outpatient Encounter [id number] [facility] HC PRO PHONE CALL 21-30 MIN [id number] Diagnos is: ICD-10- CM I10 Essenti al (primar y) hyperte LETTY Crocker 07/03 [facility] OFFICE O/P EST MOD 30 MIN [id number] Diagnos is: ICD-10- CM H35.9 Unspeci fied retinal disorde r BIRDIE,Hazel IAD M 07/11 [facility] Outpatient Encounter [id number] [id number] 07/12 [facility] HC PRO PHONE CALL 5-10 MIN [id number] Diagnos is: ICD-10- CM I10 Essenti al (primar y) hyperte LETTY Crocker 07/17 [facility] HC PRO PHONE CALL 11-20 MIN [id number] Diagnos is: ICD-10- CM I10 Essenti al (primar y) hyperte LETTY Crocker 07/18 [facility] MATHEUS SMPL CN NPGT PRGRMG [id number] Diagnos is: ICD-10- CM G47.33 Obstruc tive sleep apnea (adult) (pediat saroj) ALEXA PHAN L S 07/22 [facility] PROBATION MANAGER STDY UNATND W/ANAL [id number] [id number] Diagnos is: ICD-10- CM G47.33 Obstruc tive sleep apnea (adult) (pediat saroj) ALEXA PHAN L S 09/02 [facility] Outpatient Encounter [id number] EMILIEALEXA CHRISTIAN L S 09/02 [facility] Outpatient Encounter [id number] [id number] 09/11 [facility] RPR&REFITG SPECT XCP APHAKIA [id number] Diagnos is: ICD-10- CM Z46.0 Encount er for fit/adj st of spectac les and contact lenses DUBOIS,THERE SA C 10/03 [facility] Outpatient Encounter [id number] 10/21 [facility] CASE MANAGEMENT [id number] [id number] SIGRID FREITAS 10/22 [facility] Outpatient Encounter [id number] 11/18 [facility] Outpatient Encounter [id number] 11/18 [facility] Outpatient Encounter [id number] 11/[address] [facility] [place] [facility] Outpatient Encounter [id number] 03/06 [place] [facility] [place] [facility] [place] [facility] Outpatient Encounter [id number] 03/06 [place] [facility] [place] [facility] HC PRO PHONE CALL 11-20 MIN [id number] [id number] Diagnos is: ICD-10- CM R68.89 Other general symptom s and signs LETTY FOLEY S 03/[address] [facility] [place] [facility] Outpatient Encounter [id number] 03/11 [place] [facility] [place] [facility] CASE MANAGEMENT [id number] [id number] AL,AMY L 03/12 [facility] Outpatient Encounter [id number] 03/[address] [facility] [place] [facility] Outpatient Encounter [id number] 03/13 [place] [facility] [place] [facility] Outpatient Encounter [id number] 03/[address] [facility] [place] [facility] Outpatient Encounter [id number] 03/26 [place] [facility] [place] [facility] MARCELA [facility] OFFICE O/P [place] 60 MIN [id number] Diagnos is: ICD-10- CM M17.11 Unilate ral primary osteoar thritis , right knee Dave RAMIREZ 03/26 [facility] Outpatient Encounter [id number] 1.03/26 [facility] [place] Outpatient Encounter [id number] 1.03/26 [facility] Outpatient Encounter [id number] 1.03/26 [facility] Out[facility] Encounter [id number] 03/28 [facility] Outpatient Encounter [id number] 03/28 [facility] Out[facility] Encounter [id number] 03/31 [facility] Out[facility] Encounter [id number] 04/07 [facility] Outpatient Encounter [id number] 04/11 [facility] [place] OFFICE [place] 40 MIN [id number] Diagnos is: ICD-10- CM F10.20 Alcohol depende nce, uncompl icated LISADA VID MELIA 04/17 [place] [facility] IMMUNIZATI ON ADMIN EACH ADD [id number] Diagnos is: ICD-10- CM I10 Essenti al (primar y) hyperte nsion LISA,DA VID MELIA 04/17 [facility] D [facility] OFF/OP EST AUGUST X REQ PHY/QHP [id number] Diagnos is: ICD-10- CM F32.A Depress ion, unspeci fied COOK,DIN A 05/06 [facility] [id number] 05/09 [facility] Encounter [id number] 01/14 /2025 [facility] OFF/OP EST MAY X REQ PHY/QHP [id number] Diagnos is: ICD-10- CM F32.A Depress ion, unspeci fied JEANNE COOK A 05/20 [facility] Encounter [id number] 05/22 [facility] Out[facility] Encounter [id number] 05/26 [facility] OFFICE O/P EST MOD 30 MIN [id number] Diagnos is: ICD-10- CM Z91.81 History of falling GONZALEZ,DA VID MELIA 05/26 [facility] Out[facility] Encounter [id number] 05/28 [facility] OFF/OP CNSLTJ NEW/EST MOD 40 [id number] Diagnos is: ICD-10- CM G47.33 Obstruc tive sleep apnea (adult) ([facility]) DORIAN GONZALEZ 06/04 [facility] Out[facility] Encounter [id number] 06/24 [facility] OFF/OP EST MAY X REQ PHY/QHP [id number] Diagnos is: ICD-10- CM Z71.89 Other specifi ed preparole counseling aide AKOSUA Whitney 06/27 [facility] Out[facility] Encounter [id number] 07/04 [facility] Out[facility] Encounter [id number] 07/04 [facility] SYNCH AUDIO-ONLY EST MOD 30 [id number] Diagnos is: ICD-10- CM I10 Essenti al (primar y) hyperte nsion JIM,RHOJesus DA R 07/06 [facility] HEARING AID XM&SLCTN BINAURL [id number] Diagnos is: ICD-10- CM H90.3 Sensori neural hearing loss, bilater al SENIOR,FLORENCIO OLE L 07/07 [facility] Out[facility] Encounter [id number] 07/07 [facility] Outpatient Encounter [id number] 07/10 [facility] Outpatient Encounter [id number] 07/16 [facility] Outpatient Encounter [id number] 07/18 [facility] Outpatient Encounter [id number] 07/18 [facility] [place] [facility] SYNCH AUDIO-ONLY EST LOW 20 [id number] Diagnos is: ICD-10- CM I10 Essenti al (primar y) hyperte nsion [facility] En[facility] [id number] 07/18 [facility] OFF/OP EST MAY X REQ PHY/QHP [id number] Diagnos is: ICD-10- CM I13.0 Hyp hrt and chr brittaney dis w hrt fail and stg 1-4/uns p chr brittaney PAZ,JA CK L 07/24 [facility] OFF/OP EST MAY X REQ PHY/QHP [id number] Diagnos is: ICD-10- CM Z01.812 Encount er for preproc edural laborat ory examina AKOSUA Nieves AEL A 07/24 [facility] MOD 30 [id number] Diagnos is: ICD-10- CM N17.9 Acute kidney failure , unspeci fiBEN Le 07/25 [place] [facility] Outpatient Encounter [id number] 07/28 [facility] CONFORMITY EVALUATION [id number] Diagnos is: ICD-10- CM Z46.1 Encount er for fitting and adjustm ent of hearing aid SENIOR,FLORENCIO OLE L 07/31 [facility] Social History Combined list of available smoking, tobacco, and other social history from Department of Defense and Veterans Affairs facilities. Social History Type Response Date Comment Sourc e Tobacco smoking status [facility]CO USE FORMER CIGARETTES 04/17/2024 [facility] History of tobacco use [place]-TO[place]ACCO NEVER USED OTHER TYPE 04/17/2024 [facility] History of tobacco use [facility]-TOBACCO FORMER USER 06/28/2022 [facility] History of tobacco use [place]-TOBACCO QUIT 15 YRS OR MORE 08/03/2021 [facility]2020 [facility] 12[facility]17/2019 [facility] 12/02/2018 [facility] History of tobacco use FORMER TOBACCO USER 7Y OR GREATER 04/19/2017 [facility] Plan of Care List of future care activities from Department Veterans Affairs facilities. Additional future care activities may be listed in the Assessment and Plan section. 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 It does not include entries that were removed or entered in error. Problem Status Onset Date Problem Type Date of Resolution Comments Source Exposure to potentially hazardous substance (SCT [id number]) Active 023 Condition Jul 19, 2023 Entered By: PAZ GREEN Comment: Administratively added by Hernan Green due to positive [facility] screen(s) ' CONCERN AGENT [place]' on 06/28/22 [facility] Age related macular degeneration Active Condition [facility] Alcohol dependence Active Condition [facility] Alcohol Dependence (SCT 73912231) Active Condition [facility] [place] Alcohol dependence syndrome Active Condition [facility] Delgadillo esophagus Active Condition [facility] Delgadillo's esophagus Active Condition 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 [facility] Cataract Active Condition [facility] Chronic obstructive pulmonary disease Active Condition [facility] Chronic [facility]initis Active [facility] Edema Active Condition [facility] Erectile dysfunction Active Condition [facility] Erectile dysfunction (SNOMED CT [id number]) Active Condition [facility] Essential hypertension Active Condition [facility] Exposure to potentially hazardous substance (SCT [id number]) Active Condition Apr 25 Entered By: SHWETHA FLOR Comment: Entered automatically through [facility] Problem List documentation program [facility] Gastro-esophageal reflux disease Active Condition [facility] Gastroesophageal reflux disease Active Condition [facility] Hearing loss Active Condition [facility] Hearing Loss (SCT 12119506) Active Condition [facility] History [facility] cholecystectomy Active Condition [facility] History of fall Active Condition [facility] HTN - Hypertension (SCT 59402939) Active Condition [facility] Hydrocele Active Condition [facility] Hyperlipidemia Active Condition [facility] Hyperlipidemia (SCT 23694267) Active Condition [facility] Insomnia Active Condition [facility] Insomnia (SCT 864101593) Active Condition [facility] 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 [facility] OA - Osteoarthritis (SCT 535030365) Active Condition Apr 16, 2024 Entered By: PAULINA GONZALEZ Comment: Rigth [facility] Obstructive sleep apnea Active Condition [facility] Obstructive Sleep Apnea of Adult (SCT [id number]) Active Condition Apr 16, 2024 Entered By: PAULINA GONZALEZ Comment: He has an [facility] Osteoarthritis of right knee joint Active Condition [facility] Rhinitis Active Condition [facility] Sensorineural hearing loss, bilateral Active Condition [facility] Sleep apnea Active Condition [facility] Systemic primary arterial hypertension Active Condition [facility] Tinnitus Active Condition [facility] Tinnitus of right ear Active Condition [facility] Diagnosis: ICD-10-CM Z46.1 Encounter for fitting and adjustment of hearing aid [facility] Diagnosis: ICD-10-CM N17.9 Acute kidney failure, unspecified Active Diagnosis [facility] Diagnosis: ICD-10-CM Z01.812 Encounter for preprocedural laboratory examination [facility] Diagnosis: ICD-10-CM I13.0 Hyp hrt & chr kdny dis w hrt fail and stg 1-4/unsp chr kdny Active [facility] Diagnosis: ICD-10-CM I10 Essential (primary) hypertension Active Diagnosis [facility] Diagnosis: ICD-10-CM H90.3 Sensorineural hearing loss, bilateral Active [facility] Diagnosis: ICD-10-CM Z71.89 Other specified counseling Active Diagnosis [facility] Diagnosis: ICD-10-CM G47.33 Obstructive sleep apnea (adult) (pediatric) Active Diagnosis [facility] Diagnosis: ICD-10-CM Z91.81 History of falling Active Diagnosis [facility] Diagnosis: ICD-10-CM F32.A Depression, unspecified Active Diagnosis [facility] Diagnosis: ICD-10-CM F10.20 Alcohol dependence, uncomplicated Active Diagnosis [facility] Diagnosis: ICD-10-CM M17.11 Unilateral primary osteoarthritis, right knee Active Diagnosis [facility] Diagnosis: ICD-10-CM R68.89 Other general symptoms and signs Active Diagnosis [facility] Diagnosis: ICD-10-CM Z46.0 Encounter for fit/adjst of spectacles and contact lenses Active Diagnosis [facility] Diagnosis: ICD-10-CM H35.9 Unspecified retinal disorder Active Diagnosis [facility] Diagnosis: ICD-10-CM Z51.89 Encounter for other specified aftercare Active Diagnosis [facility] Diagnosis: ICD-10-CM R25.2 Cramp and spasm Active Diagnosis [facility] Medications Combined list of outpatient medications from Department of Defense and Veterans Affairs facilities.Medications provided include 1) outpatient medications from the last 15 months, and 2) patient-reported medications. Medication Details Route Status Patient Instructions Prescription Expires Prescription Number Last Dispense Date Ordering Provider Order Date Order Qty Source AMLODIPINE BESYLATE 10MG TAB TAKE ONE TABLET ORALLY EVERY DAY ORAL ACTIVE KAREN HARRIS 2019 [facility] ATORVASTATI N [place] 40MG TAB TAKE ONE-HALF TABLET BY MOUTH EVERY DAY FOR CHOLESTE ROL ORAL ACTIVE 02/20/2025 [id number] 5 VIVIAN BRAVO 2023 45 [facility] ATORVASTATI N [place] 40MG TAB TAKE ONE-HALF TABLET BY MOUTH ONCE DAILY FOR HIGH CHOLESTE ROL ORAL HOLD 04/18/2025 [id number] Dave GONZALEZ 2023 45 [facility] ATORVASTATI N [place] 40MG TAB TAKE ONE-HALF TABLET BY MOUTH EVERY DAY FOR CHOLESTE ROL ORAL DISCONT INUED 03/21/2024 [id number] 4 VIVIAN BRAVO 2022 45 [facility] ATORVASTATI N [place] 40MG TAB TAKE ONE-HALF TABLET ORALLY EVERY DAY ORAL ACTIVE SUSAN SCOTT 2016 [facility] CANNABINOID OIL (NON-VA) SUFFICIE NT QUANTITY BY MOUTH NEEDED FOR ANXIETY/ SLEEP ORAL ACTIVE STEPH MUNSON LT 2022 [facility] CARBOXYMETH YLCELLULOSE NA 0.5% SOLN,OPH INSTILL 1 DROP IN BOTH EYES FOUR TIMES A DAY FOR DRY EYES OPHTHA LMIC 07/12/2024 [id number] 4 Elisabeth GIORDANO 2023 45 [facility] CARVEDILOL 12.5MG TAB TAKE ONE-HALF TABLET ORALLY EVERY DAY ORAL ACTIVE KAREN HARRIS 2018 [facility] CARVEDILOL 25MG TAB TAKE ONE TABLET BY MOUTH TWICE DAILY FOR HIGH BLOOD PRESSURE ORAL ACTIVE 04/18/2025 [id number] 4 Dave GONZALEZ 2023 180 [facility] CARVEDILOL 25MG TAB TAKE ONE TABLET BY MOUTH TWICE A DAY WITH MEAL FOR BLOOD PRESSURE ORAL 05/02/2024 [id number] 4 VIVIAN BRAVO 2023 180 [facility] FLUTICASONE 250MCG/SALM ETEROL 50MCG INHL,ORAL,D ISKUS,60 INHALE 1 PUFF BY MOUTH TWICE DAILY FOR BRONCHOS PASM PREVENTI ON WITH COPD - RINSE MOUTH AFTER USE RESPIR ATORY (INHAL ATION) ACTIVE 04/18/2025 [id number] 4 Dave GONZALEZ 2023 3 [facility] FOLIC ACID 1MG TAB TAKE ONE TABLET BY MOUTH ONCE DAILY VITAMIN/ NUTRITIO N SUPPLEME NT ORAL ACTIVE 04/18/2025 [id number] 4 Dave GONZALEZ 2023 90 [facility] HYDROCHLORO THIAZIDE 25MG/LOSART AN POTASSIUM 100MG TAB TAKE 1 TABLET BY MOUTH ONCE DAILY FOR HIGH BLOOD PRESSURE ORAL ACTIVE 07/19/2025 [id number] 5 Dave GONZALEZ [address] [facility] IBUPROFEN TAB TAKE ORALLY EVERY 6 HOURS NEEDED ORAL ACTIVE SUSAN SCOTT 2016 [facility] [place] 25MG TAB TAKE ONE TABLET BY MOUTH ONCE DAILY FOR BLOOD PRESSURE /HEART ORAL DISCONT INUED (EDIT) 05/27/2025 [id number] 5 Dave GONZALEZ 2024 90 [facility] [place] 25MG TAB TAKE ONE TABLET BY MOUTH EVERY DAY FOR BLOOD PRESSURE ORAL DISCONT INUED (EDIT) 05/28/2024 [id number] 4 VIVIAN BRAVO [address] [place] [address] [place] 50MG TAB TAKE ONE TABLET BY MOUTH ONCE DAILY FOR BLOOD PRESSURE /HEART ORAL DISCONT INUED BY PROVIDE R 06/28/2025 [id number] Dave GONZALEZ 2024 [facility] [place] 50MG TAB TAKE ONE TABLET BY MOUTH EVERY DAY FOR BLOOD PRESSURE ORAL 07/19/2024 [id number] 4 VIVIAN BRAVO R [address] [place] [address] MULTIVIT/OP HTH AREDS2/LUTE IN/ZEAXANTH IN CAP/TAB TAKE 1 CAPSULE BY MOUTH TWICE DAILY FOR VITAMIN SUPPLEME NTATION IN THE MORNING AND EVENING, WITH FOOD ORAL ACTIVE 04/18/2025 [id number] 4 Dave GONZALEZ 2023 240 [facility]
--- OUTSIDE RECORDS SUMMARY | 2024-08-01 00:58 | XMS_ITS | Encounter Summary ---
Author Name [facility] [place] [facility] [place] Address [address] [place] [id number] Care Team Providers Care Nutrition Associate Name Role Phone YAMILKA SPENCER Primary Care Provider UnavailMINI Mera Primary Care Provider Unavail le Insurance Providers: All historical and current [...] Name Patient's Relationship to Policy Haile HUMANA [facility] (WNR) MEDICARE ADVANTAGE [facility] (WN) August 28, 2022 [id number] [phone] DEUCE GUAJARDO PATIENT MEDICARE (WNR) MEDICARE (M) PART B Oct 29, 2015 PART B [id number] [phone] DEUCE GUAJARDO PATIENT MEDICARE (WNR) MEDICARE (M) PART B Oct 29, 2015 PART B [id number] DEUCE GUAJARDO PATIENT MEDICARE (WNR) MEDICARE (M) PART B Oct 29, 2015 PART B [id number] [phone] DEUCE GUAJARDO PATIENT MEDICARE (WNR) MEDICARE (M) PART B Oct 29, 2015 PART B [id number] [phone] DEUCE GUAJARDO PATIENT MEDICARE (WNR) MEDICARE (M) PART A Jul 29, 2012 PART A [id number] [phone] DEUCE GUAJARDO PATIENT MEDICARE (WNR) MEDICARE (M) PART A Jul 29, 2012 PART A [id number] DEUCE GUAJARDO PATIENT MEDICARE (WNR) MEDICARE (M) PART A Jul 29, 2012 PART A [id number] [phone] DEUCE GUAJARDO PATIENT MEDICARE (WNR) MEDICARE (M) PART A Jul 29, 2012 PART A [id number] DEUCE GUAJARDO PATIENT MEDICARE (WNR) MEDICARE (M) PART B Jul 29, 2012 PART B [id number] DEUCE GUAJARDO PATIENT MEDICARE (WNR) MEDICARE (M) PART A Jul 29, 2012 PART A [id number] [phone] DEUCE GUAJARDO PATIENT MEDICARE PART D (WNR) MEDICARE (M) PART D Apr 30, 2017 PART D [id number] DEUCE GUAJARDO PATIENT Selected Encounter This section includes the information on record at [place] for the Encounter. Date/Time Encounter Type Encounter Description Reason Provider Source Mar 26, 2024 11:00 AM OFFICE O/P [place] 60 MIN PM&RS PHYSICIAN ICD-10-CM M17.11 Unilateral primary osteoarthritis, right knee JOANNE JACKSON [facility] Encounter Template Text not used by [place] Assessments - Encounter Diagnoses This section includes the primary and secondary diagnoses documented for the Encounter. Date/Time Primary/Secondary Diagnosis Diagnosis Name Provider Source Apr 02, 2024 12:05 PM PRIMARY Unilateral primary osteoarthritis, right knee JOANNE JACKSON [facility] Apr 02, 2024 12:05 PM [facility] Apr 02, [facility]24 12:05 PM SECONDARY Unsteadiness on feet JOANNE JACKSON [facility] Plan of Treatment: Future Appointments (+ 6 months) and Future Tests (+/- 45 days) The Plan of Treatment section includes future care activities for the patient from all [place] treatmentfacilities. This section includes future appointments and future orders which are active, pending or scheduled. Future Appointments This section includes appointments that were scheduled to occur 6 months from the date of the Encounter, up to a maximum of 20 appointments. The data comes from all [place] treatment facilities. Appointment Date/Time Appointment Type Appointme nt Facility Name Apr 14, 2024 11:00 AM [facility]ULATORY [facility]IC[facility] Apr 17, 2024 08:30 AM [facility]UL[facility]ORY [facility] MEDICINE [facility] Apr 17, 2024 08:30 AM [facility] [place] [facility] [place] [facility] May 06, 2024 01:00 PM AMBULATORY - PSYCHIATRY [facility] May 20, 2024 11:00 AM [facility]ULATORY - MEDICINE [facility] [place] [facility] May 20, 2024 03:00 PM AMBULATORY - PSYCHIATRY [facility] May 21, 2024 11:00 AM AMBULATORY - MEDICINE [facility] [place] [facility] May 26, 2024 03:00 PM AMBULATORY - MEDICINE [facility] [place] [facility] Jun 04, 2024 01:00 PM AM[facility]ULATORY [facility]ICINE [facility] [place] Jun 27, 2024 09:30 AM AMBULATORY - MEDICINE [facility] Jul 06, 2024 10:30 AM [facility]ULATORY [facility] MEDICINE [facility] Jul 07, 2024 01:00 PM AMBULATORY - REHAB MEDICIN E [facility] [facility] Jul 24, 2024 09:30 AM AMBULATORY [facility] MEDICINE [facility] [place] Jul 24, 2024 10:00 AM AMBULATORY - MEDICINE [facility] [place] [facility] Jul 31, 2024 11:00 AM AMBULATORY - REHAB MEDICIN E [facility] [place] [facility] Aug 04, 2024 09:00 AM AMBULATORY - MEDICINE [facility] Aug 05, 2024 01:00 PM AMBULATORY - MEDICINE [facility] [place] Aug 07, 2024 09:00 AM AMBULATORY - MEDICINE [facility] [place] Aug 07, 2024 09:00 AM [facility] [place] [facility] [place] [facility] September 08, 2024 03:00 PM AMBULATORY - PSYCHIATRY [facility] Active, Pending, and Scheduled Orders This section includes a listing of several types of active, pending, and scheduled orders, including clinic medications orders, diagnostic test orders, procedure orders and consult orders; where the start date of the order is 45 days before the date of the Encounter or 45 days after the date of theEncounter. The data comes from all [place] treatment facilities. Test Date/Time Test Type Test Details Facility Name May 06, 2024 02:44 PM Consult Order PSYCHIATRI C MEDICATION POPC OUTPT Cons Informatics Physician Liaison's Choice [facility] Lab Results: +/- 30 days of the encounter This section includes the Chemistry and Hematology Lab Results on record with [place] for the patient. Radiology Reports and Pathology Reports are provided separately, in subsequent sections. Lab Results This section contains the Chemistry/Hematology Results that were resulted 30 days before or 30 daysafter the date of the Encounter. Date/Time Source Result Type Result - Unit Interpretation Reference Range Comment Apr 14, 2024 11:15 AM [facility] CBC AND DIFF (AUTO) Specimen Type: BLOOD No comment entered. Ordering Provider: PAULINA GONZALEZ Report Released Date/Time: Apr 08, 2024 09:59 AM Reporting Lab: [facility] [address] [facility] [address] Performing Lab: [facility] [address] [address] WBC 6.33 10*3/uL 4.50-11.00 RBC 3.71 10*6/uL L 4.23-5.66 HGB 12.5 g/dL L 12.8-17 HCT 38.0 L 39.2-50.4 MCV 102.4 fL H 82-99 MCHC 32.9 g/dL 30.8-35.1 PLT 181 10*3/uL 140-360 RDW-CV 11.8 L 12.0-16.0 MONO, ABS 0.57 10*3/uL 0.30-1.10 MCH 33.7 pg H 26.2-32.6 NEUT % 72.7 43.7-75.8 LYMPH % 15.0 14.0-42.3 MONO % 9.0 5.1-13.7 EOS % 2.5 0.4-6.8 BASO % 0.6 0.1-2.0 NEUT, ABS 4.60 10*3/uL 2.20-7.60 LYMPH, ABS 0.95 10*3/uL L 1.00-3.20 EOS, ABS 0.16 10*3/uL 0.03-0.44 BASO, ABS 0.04 10*3/uL 0.01-0.13 IMMATURE GRAN % 0.2 0.0-0.7 IMMATURE GRAN, ABS 0.01 10*3/uL 0.00-0.06 NRBC % 0.0 0.0-0.0 NRBC, ABS 0.00 10*3/uL 0.00-0.00 Apr 14, 2024 11:15 AM [facility] BASIC METABOLIC PANEL (non-fasting) Specimen Type: SERUM No comment entered. Ordering Provider: PAULINA GONZALEZ Report Released Date/Time: Apr 08, 2024 09:59 AM Reporting Lab: [address] [address] Performing Lab: [address] [address] UREA NITROGEN 24 mg/dL 7-25 GLUCOSE 122 mg/dL H 65-100 SODIUM 139 mmol/L 135-145 POTASSIUM 4.7 mmol/L 3.5-5.0 CHLORIDE 108 mmol/L 100-110 CO2 22 meq/L 20-30 CREATININE, Serum 1.44 mg/dL H 0.50-1.40 eGFR(CKD-EPI 2020) 50 mL/min L >60 Apr 14, 2024 11:15 AM [facility] LIVER FUNCTION Specimen Type: SERUM No comment entered. Ordering Provider: PAULINA GONAZLEZ Report Released Date/Time: Apr 08, 2024 09:59 AM Reporting Lab: [address] [address] Performing Lab: [address] [address] PROTEIN,TOTAL 6.2 g/dL 6.0-8.3 ALBUMIN 3.5 g/dL 3.5-5.0 ALKALINE PHOSPHATASE 99 U/L 40-150 AST 13 U/L 5-34 ALT 16 U/L BILIRUBIN, TOTAL 0.9 mg/dL 0.2-1.2 Apr 14, 2024 11:15 AM [facility] LIPID PANEL, NON FASTING Specimen Type: SERUM No comment entered. Ordering Provider: PAULINA GONZALEZ Report Released Date/Time: Apr 08, 2024 09:59 AM Reporting Lab: [facility] [address] [facility] [address] Performing Lab: [facility] [address] [address] CHOLESTEROL 160 mg/dL TRIGLYCERIDE 208 mg/dL H 0-150 LDL calculated 77 mg/dL 0-129 CHOL/HDL 3.9 HDL CHOLESTEROL 41 mg/dL 40-60 Apr 14, 2024 11:15 AM [facility] HEMOGLOBIN A1C PANEL Specimen Type: BLOOD Comment: Values obtained from A1C measurements can vary. For atypical A1C assays, a reported value of 7.0 could actually be between 6.72 and 7.28 if measured by a reference method. A reported value of 9.0 could actually be between 8.73 and 9.27. Ref: http://www.ngs p.org/CAPdata. asp Ordering Provider: PAULINA GONZALEZ Report Released Date/Time: Apr 08, 2024 09:59 AM Reporting Lab: [facility] [address] [address] Performing Lab: [facility] [address] [address] HEMOGLOBIN A1C 5.4 4.0-5.6 Apr 14, 2024 11:15 AM [facility] MICROALBUMIN CREATININE RATIO PANEL Specimen Type: URINE No comment entered. Ordering Provider: PAULINA GONZALEZ Report Released Date/Time: Apr 08, 2024 09:59 AM Reporting Lab: [facility] [address] [facility] [address] Performing Lab: [facility] [address] [facility] [address] MICROALBUMIN/C REATININE RATIO 6.1 mg/g 0-29.9 MICROALBUMIN,Q UANTITATIVE 0.8 mg/dL RR UNAVAIL CREATININE URINE 131.91 mg/dL Apr 14, 2024 11:15 AM [facility] TSH Specimen Type: SERUM No comment entered. Ordering Provider: PAULINA GONZALEZ Report Released Date/Time: Apr 08, 2024 09:59 AM Reporting Lab: [place] [facility] [address] [facility] [address] Performing Lab: [place] [facility] [place] [facility] [address] [facility] [address] TSH 1.11 u[IU]/mL 0.35-5.00 Encounter Notes: All associated encounter notes This section contains the clinical notes associated to the Encounter. Date/Time Encounter Note(s) Provider Source Mar 26, 2024 11:16 AM PHYSICAL MEDICINE REHAB CONSULT: LOCAL TITLE: CONSULT REPORT/PM&R STANDARD TITLE: PHYSICAL MEDICINE REHAB CONSULT DATE OF NOTE: MAR 26, 2024@11:16 ENTRY DATE: MAR 26, 2024@11:16:56 AUTHOR: AMADO JACKSON COSIGNER: URGENCY: STATUS: COMPLETED MAR 26, 2024 ALEENA GUAJARDO is a 79 y/o RHD WHITE MALE, previously in [employer] FROM May TO Dec from [employer], who was seen today for consultation requested by Local PACT after urgent care visit today for chief complaint of right knee pain for years. midshaft spiral fx 1977 treated with im carol removed 1 year later. Knee pain most severe on the outside and medial parapetellar . Did PT 1 year ago in [place]. Partial improvement. Right was injected many years ago, does not recall degree of benefit. He has had x-rays which demonstrated moderate degree of arthritis in the medial joint line and parapatellar region. Some mild lateral osteophytes also identified. is from [facility] where he has established primary care and is traveling was like to proceed with intra-articular injection. He is unclear as to whether or not he wants to return back to [facility] or establish residency in this area. He has also family in [place] and spends time in each area traveling with a trailer going from 1 child's house to the next. 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 He has 6-7 shots per night by his report. 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 Not currently engaging in therapy. Does feel that he has some underlying depression that needs to be addressed. Would like to establish some patterns. Discussed rehab but he has a dog that he acquired a year and a half ago. 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 Takes care of of dog with epilepsy now and does not feel that he has the support to have the dog cared for. Currently living with his son who is a livestock farm workers with his [facility]. At no okay thank you Soc Hx: MARITAL STATUS - [employer] FROM May TO Dec Service Connected Disabilities with % Eligibility: SC LESS THAN 50% VERIFIED Total S/C %: 10 TINNITUS 10% S/C IMPAIRED HEARING 0% S/C HYPERTENSIVE VASCULAR DISEASE 0% S/C ALL: No Allergy Assessment MEDS: Active Outpatient Medications (including Supplies): No Medications Found Active Medications from [employer] ATORVASTATIN CA 40MG TAB Sig: TAKE ONE-HALF TABLET BY MOUTH EVERY DAY FOR CHOLESTEROL Quantity: 45 Days Supply: 90 Original # of Refills: 3 Rx Expiration: 02/20/25 Last filled 03/05/24 at [facility] (Active) CARBOXYMETHYLCELLULOSE NA 0.5% SOLN,OPH Sig: INSTILL 1 DROP IN BOTH EYES FOUR TIMES A DAY FOR DRY EYES Quantity: 45 Days Supply: 90 Original # of Refills: 3 Rx Expiration: 07/12/24 Last filled 07/12/23 at [facility] (Active) CARVEDILOL 25MG TAB Sig: TAKE ONE TABLET BY MOUTH TWICE A DAY WITH MEAL FOR BLOOD PRESSURE Quantity: 180 Days Supply: 90 Original # of Refills: 3 Rx Expiration: 05/02/24 Last filled 01/09/24 at [facility] (Active) LOSARTAN 50MG TAB Sig: TAKE ONE TABLET BY MOUTH EVERY DAY FOR BLOOD PRESSURE Quantity: 90 Days Supply: 90 Original # of Refills: 3 Rx Expiration: 07/19/24 Last filled 01/09/24 at [facility] (Active) MULTIVIT/OPHTH AREDS2/LUTEIN/ZEAXANTHIN CAP/TAB Sig: TAKE 1 CAPSULE BY MOUTH TWICE A DAY . ONE CAPSULE IN THE MORNING AND ONE CAPSULE IN THE EVENING. FOR AGE RELATED MACULAR DEGENERATION. Quantity: 240 Days Supply: 90 Original # of Refills: 3 Rx Expiration: 07/12/24 Last filled 07/12/23 at [facility] (Active) ROS: Constitutional - Denies fever or chills, night sweats, or unexplained weight loss. Head/Eyes/Ears/Neck- Denies headaches, dizziness, visual changes. Cardiovascular - Denies chest pain/palpitations, lower extremity swelling. Respiratory - Denies shortness of breath, or cough. GI - Denies nausea, vomiting, or loss of bowel fx/control. - Denies urinary difficulties or loss of bladder function. Musculoskeletal - See HPI. Neuro - See HPI. Psychiatric - See PMHx. Denies mood swings or change in behavior. Sleep - Denies nocturnal pain or excessive daytime fatigue. Skin/integuments - Denies rashes, lesions, or skin breakdown in the extremities. All other systems reviewed and are negative. PHYSICAL EXAMINATION: Vitals in chart. GEN: WD, WN. Awake, alert, cooperative with exam. In NAD. PSYCH: Good eye contact. Normal mood. Appropriately concerned. No icterus. Non - palpable liver edge. CVS: Extremities warm/well perfused. There has been some trace upper extremity edema in the right upper extremity which has resolved somewhat. Lower extremity appreciated. PULM: Breathing unlabored at rest but with exertion seems to become short of breath. No accessory muscle use. ABD: Nondistended. EXTREMITIES: No cyanosis or edema of bilateral upper and lower extremities. SKIN: No rashes, lesions, or skin breakdown over exposed areas. MUSCULOSKELETAL/NEURO EXAM: Cervical motion was full. Negative Spurling's. Negative l'hermittes. Negative Norm. No ataxia noted. He does appear to be uncomfortable. He did excuse himself to use the restroom several times. twice . He does not demonstrate any imbalance but does demonstrate some pallor and feels unsteady. Orthostatics were taken several minutes after injection and he went from 113/70 to 70 /46 standing with 110 bpm Gait: normal, symmetric, negative Trendelenburg. Able to perform tandem walk and heel/toe walk. Labs: No data available for: WBC HGB HCT PLT POTASSIUM SODIUM HEMOGLOBIN A1C GLUCOSE CREATININE, Serum BUN (WORC) AST ALT SODIUM, (WORC) GLUCOSE (WORC) BILIRUBIN, TOTAL ALKALINE PHOSPHATASE CHOLESTEROL LDL calculated HDL CHOLESTEROL TRIGLYCERIDE TSH VITAMIN B12 VITAMIN D (25-OH) HIV 1&2 Ag/Ab SCREEN URINE GLUCOSE UA RBC CHEM 7 TREND LAB CUMULATIVE SELECTED 2 No selection items chosen for this component. Liver Function Tests No data available for: AST ALT ALKALINE PHOSPHATASE ALBUMIN BILIRUBIN, TOTAL LDH PROTEIN,TOTAL HEMOGLOBIN A1C TREND No data available PROCEDURE: Right intra-articular knee injection with cortisone. INDICATION: Knee pain. ANESTHESIA: None. INFORMED CONSENT: Obtained verbally, and through IMED. The steps of the procedure, potential risks and benefits of the intra-articular knee injection, as well as alternatives were discussed with patient. The potential risks include, but not limited to: local injection reaction, pain, bruising/hematoma, nerve damage, temporary increase in blood sugar (if applicable), adverse side effects to cortisone or lidocaine including rash/itching, infection, and swelling of the knee. Patient agreed to proceed with the injection. TIME OUT NOTE TIME:Feb@11:30 Kincaid correctly stated: [X]Full name: ALEENA GUAJARDO [X]Last #: [id number] [X]: Jan PROVIDER NAME: Amado Jackson PA-c STAFF NAME: Jassi Howell RN Lot #: [id number] Exp: 20 [phone] The procedure was performed with the patient in the seated position. Anteromedial approach was selected. X 3. 25-gauge 1-1/2 inch needle advanced into the intercondylar notch. Negative aspiration for heme. Injected with 40 mg triamcinolone combination with 2 cc lidocaine and 2 cc of bupivacaine. Needle withdrawn, pressure applied and then Band-Aid applied. No excessive bleeding. No complications. No blood loss. The patient tolerated the procedure well without any immediate adverse side effects. Patient was instructed on the use of ice prn post injection pain/swelling. The patient was able to ambulate out of the office today, and was discharged home with instructions to monitor for any adverse reactions/side effects, and to contact me with any issues. Pre-procedure pain level:6/10 Post-procedure pain level: 10 ASSESSMENT/PLAN: Patient is a 79-year-old that was here today for intra-articular knee injection. This was performed today without incident in regards to the injection however Kincaid had been having some issues with unsteadiness which she was much more vocal about after the injection. This led to further investigation with primary care PA as well. Significant concern for cardiovascular risk and requiring further investigation regarding renal function and electrolyte abnormalities. Dehydration likely due to the amount of alcohol and lack of intake. High risk Kincaid should be monitored closely. Will be at [place]. Will be transported by friend. Deferred on ambulance. He will call his son to let him know of the plan. FOLLOW-UP: 1 month Potential risks and side effects of any medication(s) prescribed today was reviewed with Kincaid. Patient had many excellent questions, which I answered to the best of my ability and to patient's apparent satisfaction. MDM: 60 minutes which includes reviewing records, evaluating patient, documenting in medical record, educating, counseling and coordinating care. /timur/ AMADO JACKSON [facility] Signed: 03/28/2024 09:38 AMADO JACKSON [facility]
--- OUTSIDE RECORDS SUMMARY | 2024-08-01 00:58 | XMS_ITS | Clinical Summary ---
Author Organization 175 [facility] Address [address] [place] [address] Phone Care Team Providers Care Core Drill Operator Name Role Phone Juanito Gillespie MD Primary Care Provider [phone] Allergies Active Allergy Reactions Criticality Noted Date Comments Silicone Rash Medium 04/02/2018 Medications folic acid (FOLVITE) 1 mg tablet Take 1 tablet (1,000 mcg total) by mouth 1 (one) time each day. 4 Active magnesium oxide (MAG-OX) 400 mg (241.3 elemental magnesium) tablet Take 1 tablet (400 mg total) by mouth 2 (two) times a day. 4 Active thiamine 100 mg tablet Take 1 tablet (100 mg total) by mouth 1 (one) time each day. 4 Active traZODone (DESYREL) 50 mg tablet Take 1 tablet (50 mg total) by mouth at bedtime. 4 Active atorvastatin (LIPITOR) 20 mg tablet Take 1 tablet (20 mg total) by mouth at bedtime. Active omeprazole (PriLOSEC) [address] capsule Take 1 capsule (40 mg total) by mouth 2 (two) times a day. Do not crush or chew. Active vit A/vit C/vit E/zinc/copper (ICAPS AREDS ORAL) Take by mouth 1 (one) time each day. Active carvediloL (COREG) 25 mg tablet Take 1 tablet (25 mg total) by mouth 2 (two) times a day with meals. 4 Active losartan (COZAAR) 50 mg tablet Take 1 tablet (50 mg total) by mouth 1 (one) time each day. 4 Active fluticasone-ramsey meterol (ADVAIR DISKUS) 250-50 mcg/dose diskus inhaler Inhale 1 puff by mouth 2 (two) times a day. 4 Active polyethylene glycol (Golytely) 236-22.74-6.74 -5.86 gram solution Take 4L by mouth once for one dose. May substitue any PEG. Starting at 6PM the night before your procedure drink 1 8oz glasses at your own pace until you complete half of the gallon. Finish 2nd half of the gallon 5 hours before your procedure. 4000 mL 5 Active bisacodyL (DULCOLAX) 5 mg EC tablet Take 2 tablets by mouth right before beginning bowel prep. See instructions provided by the office 2 tablet 5 Active Active Problems Problem Noted Date Diagnosed Date HTN (hypertension) 07/02/2024 Encounters Date Type Department Care Team Description 07/03/2024 Telephone Gastroenterology - 299 [facility] 299 [facility] [address] [place] [phone] Naheed Cruz [place] Results 07/02/2024 1:52 PM EST Anesthesia Event [facility] [address] [place] [phone] Indy Mcadams MD 07/02/2024 12:50 PM EST - 07/02/2024 11:59 PM EST Hospital Encounter [facility] [address] [place] [phone] Maxwell Boyle MD Millay, Julia, CRNA Kriz, Petra, MD Gastroesophageal reflux disease, unspecified whether esophagitis present; Delgadillo's esophagus with dysplasia; Family history of colon cancer in father Discharge Disposition: Home or Self Care 06/27/2024 Telephone Gastroenterology [facility] 175 [facility] 175 [facility] [address] [place] [address] Connor Moore MD MEDICATION 05/22/2024 3:20 PM EST Consult Gastroenterology [facility] 175 [facility] 175 [facility] [address] [place] [phone] Jenn Thompson PA Gastroesophageal reflux disease, unspecified whether esophagitis present (Primary Dx); Delgadillo's esophagus with dysplasia; Alcohol abuse; Family history of colon cancer in father 05/22/2024 Telephone Gastroenterology [facility] 175 [facility] 175 [facility] [address] [place] [address] Jenn Thompson PA from Last 3 Months Surgical History Surgery Date Site/Laterality Comments COLON SURGERY CHOLECYSTECTOMY ESOPHAGOGASTRODUODENOSCOPY Medical History Medical History Date Comments Hyperlipidemia Hypertension Delgadillo esophagus Social History Tobacco Use Types Packs/Day Years Used Date Smoking Tobacco: Never Smokeless Tobacco: Never Tobacco Cessation:Counseling Given: Not Answered Alcohol Use Standard Drinks/Week Comments Yes 0 (1 standard drink = 0.6 oz pur e alcohol) Interpersonal Safety Answer Date Record ed Physical Abuse 07/02/2024 Verbal Abuse 07/02/2024 Sex and Gender Information Value Date Recorded Sex Assigned at Male 06/30/2024 3:32 PM EST Legal Sex Male 8:23 AM EST Gender Identity Male 05/15/2024 1:37 PM EST Sexual Orientation Straight 05/15/2024 1: 37 PM EST Obstetrics History Last Filed Vital Signs Vital Sign Reading Time Taken Comments Blood Pressure 141/59 07/02/2024 2:38 PM EST Pulse 65 07/02/2024 2:38 PM EST Temperature 36.8 ??C (98.3 ??F) 07/02/2024 2:18 PM ES T Respiratory Rate 18 07/02/2024 2:38 PM EST Oxygen Saturation 94% 07/02/2024 2:28 PM EST Inhaled Oxygen Concentration - - Weight 97.5 kg (215 lb) 07/02/2024 1:24 PM EST Height 175.3 cm (5' 9 ) 07/02/2024 1:24 PM EST Body Mass Index 31.75 07/02/2024 1:24 PM EST Plan of Treatment Upcoming Encounters Date Type Department Care Team (Late st Contact Info) Description 08/27/2024 1:40 PM EDT Office Visit Gastroenterology [facility] 175 [facility] 175 [facility] [address] [place] [address] Jenn Thompson PA 175 [facility] [address] [place], [place] [phone] Health Maintenance Due Date Last Done Comments Cholesterol Screening (Lipid Panel) 04/29/2024 Depression Screening 04/29/2024 Hepatitis C Screening 04/29/2024 Social Influencers of Health Screening 04/29/2024 Hypertension/CHF/CAD Annual BMP Blood Test 05/23/2024 Falls Risk Assessment 07/02/2025 07/02/2024 DTaP,Tdap,and Td Vaccines (4 - Td or Tdap) 04/17/2034 04/17/2024, 12/19/2018, 04/30/2018 Pneumococcal Vaccine: 50+ Years Completed 05/02/2018, 04/19/2017 Zoster Vaccines Completed 06/03/2019, 04/2019, 03/04/2019 Influenza Vaccine Completed 04/17/2024, , 01/04/2021, Additional history exists COVID-19 Vaccine Completed 05/26/2024, , 06/25/2021, Additional history exists RSV Immunization Adult Patients Completed 05/26/2024 HIB Vaccines Aged Out No longer eligi ble based on patient's age to complete this topic HPV Vaccines Aged Out No longer eligi ble based on patient's age to complete this topic Hepatitis A Vaccines Aged Out No long er eligible based on patient's age to complete this topic Hepatitis B Vaccines Aged Out No long er eligible based on patient's age to complete this topic IPV Vaccines Aged Out No longer eligi ble based on patient's age to complete this topic MMR Vaccines Aged Out No longer eligi ble based on patient's age to complete this topic Meningococcal ACWY Vaccine Aged Out N o longer eligible based on patient's age to complete this topic Meningococcal B Vacine Aged Out No lo nger eligible based on patient's age to complete this topic RSV Immunization Patients Under 20 months Aged Out No longer eligible based on patient's age to complete this topic Varicella Vaccines Aged Out No longer eligible based on patient's age to complete this topic Procedures Procedure Name Priority Date/Time Associated Diagnosis Comments COLONOSCOPY Routine 07/02/2024 2:17 PM EST Gastroesophageal reflux disease, unspecified whether esophagitis present Delgadillo's esophagus with dysplasia Family history of colon cancer in father EGD Routine 07/02/2024 2:17 PM EST Gastroesophageal reflux disease, unspecified whether esophagitis present Delgadillo's esophagus with dysplasia Family history of colon cancer in father TISSUE EXAM Routine 07/02/2024 2:12 PM EST Gastroesophageal reflux disease, unspecified whether esophagitis present Delgadillo's esophagus with dysplasia Family history of colon cancer in father from Last 3 Months Results * COLONOSCOPY Anesthesia - MAC; [facility] END[facility]COPY (07/02/2024 2:17 PM EST) Anatomical Region Laterality Modality Endoscopy 07/02/2024 1:52 PM EST Impressions 07/02/2024 2:16 PM EST - Diverticulosis in the sigmoid colon. ? - Diverticulosis in the ascending colon. ? - Non-bleeding internal hemorrhoids. ? - The examination was otherwise normal on direct and ? retroflexion views. ? - No specimens collected. Recommendation: ?- Perform an upper GI endoscopy today. Narrative 07/02/2024 2:16 PM EST [facility] Patient Name: Dominic Gordillo Procedure Date: 07/02/2024 1:52 PM Date of : 1945 Age: 79 Room: ROOM 15 Gender: Male Note Status: Finalized Attending MD: Maxwell Boyle MD, Procedure Date No Time: 07/02/2024 Procedure: ? Colonoscopy Indications: ? Screening in patient at increased risk: Family history ? of 1st-degree relative with colorectal cancer Providers: ? Maxwell Boyle MD Referring MD: ?Maxwell Boyle MD Medicines: ? Monitored Anesthesia Care Complications: ? No immediate complications. Estimated Blood Loss: ? Estimated blood loss: none. Procedure: ? Pre-Anesthesia Assessment: ? - ASA Grade Assessment: III - A patient with severe ? systemic disease. ? - After reviewing the risks and benefits, the patient ? was deemed in satisfactory condition to undergo the ? procedure. ? After I obtained informed consent, the scope was ? passed under direct vision. Throughout the procedure, ? the patient's blood pressure, pulse, and oxygen ? saturations were monitored continuously.The Olympus ? Colonoscope was introduced through the anus and ? advanced to the cecum, identified by appendiceal ? orifice and ileocecal valve. The colonoscopy was ? performed without difficulty. The patient tolerated ? the procedure well. The quality of the bowel ? preparation was good. Findings: ?Multiple large-mouthed diverticula were found in the ? sigmoid colon. ? Scattered small-mouthed diverticula were found in the ? ascending colon. ? Non-bleeding internal hemorrhoids were found during ? retroflexion. The hemorrhoids were small. ? The exam was otherwise without abnormality on direct ? and retroflexion views. Procedure Code(s): ? --- Professional --- ? G0105, Colorectal cancer screening; colonoscopy on ? individual at high risk Diagnosis Code(s): ? --- Professional --- ? Z80.0, Family history of malignant neoplasm of ? digestive organs CPT copyright 2020 [employer]. All rights reserved. The codes documented in this report are preliminary and upon electoral officer review may be revised to meet current compliance requirements. Maxwell Boyle MD 07/02/2024 2:16:24 PM This report has been signed electronically.Maxwell Boyle MD Number of Addenda: 0 Note Initiated On: 07/02/2024 1:52 PM Scope In: Scope Out: ? Endoscopy Department at [facility] - [address] [place] [address], ? [place] [phone] Procedure Note Maxwell Boyle MD - 07/02/2024 [facility] Patient Name: Dominic Gordillo Procedure Date: 07/02/2024 1:52 PM Date of : 1945 Age: 79 Room: ROOM 15 Gender: Male Note Status: Finalized Attending MD: Maxwell Boyle MD, Procedure Date No Time: 07/02/2024 Procedure: Colonoscopy Indications: Screening in patient at increased risk: Familyhistory of 1st-degree relative with colorectal cancer Providers: Maxwell Boyle MD Referring MD: Maxwell Boyle MD Medicines: Monitored Anesthesia Care Complications: No immediate complications. Estimated Blood Loss: Estimated blood loss: none. Procedure: Pre-Anesthesia Assessment: - ASA Grade Assessment: III - A patient with severe systemic disease. - After reviewing the risks and benefits, thepatient was deemed in satisfactory condition to undergo the procedure. After I obtained informed consent, the scope was passed under direct vision. Throughout theprocedure, the patient's blood pressure, pulse, and oxygen saturations were monitored continuously.The Olympus Colonoscope was introduced through the anus and advanced to the cecum, identified by appendiceal orifice and ileocecal valve. The colonoscopy was performed without difficulty. The patient tolerated the procedure well. The quality of the bowel preparation was good. Findings: Multiple large-mouthed diverticula were found inthe sigmoid colon. Scattered small-mouthed diverticula were found inthe ascending colon. Non-bleeding internal hemorrhoids were found during retroflexion. The hemorrhoids were small. The exam was otherwise without abnormality ondirect and retroflexion views. Procedure Code(s): --- Professional --- G0105, Colorectal cancer screening; colonoscopy on individual at high risk Diagnosis Code(s): --- Professional --- Z80.0, Family history of malignant neoplasm of digestive organs CPT copyright 2020 [employer]. All rights reserved. The codes documented in this report are preliminary and upon electoral officer reviewmay be revised to meet current compliance requirements. Maxwell Boyle MD 07/02/2024 2:16:24 PM This report has been signed electronically.Maxwell Boyle MD Number of Addenda: 0 Note Initiated On: 07/02/2024 1:52 PM Scope In: Scope Out: Endoscopy Department at [facility] - [address] [place] [id number] IMPRESSION: - Diverticulosis in the sigmoid colon. - Diverticulosis in the ascending colon. - Non-bleeding internal hemorrhoids. - The examination was otherwise normal on directand retroflexion views. - No specimens collected. Recommendation: - Perform an upper GI endoscopy today. us Maxwell Boyle MD GI~PROCEDURE ORDERABLES Final Result * EGD Anesthesia - MAC; [facility] END[facility]COPY (07/02/2024 2:17 PM EST) Anatomical Region Laterality Modality Endoscopy 07/02/2024 1:48 PM EST Impressions 07/02/2024 2:19 PM EST - Z-line variable, 40 cm from the incisors. ? - Medium-sized hiatal hernia. ? 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 Biopsied. ? - Normal stomach. ? - Normal examined duodenum. Recommendation: ?- Discharge patient to home. ? - Resume previous diet. ? - Continue present medications. ? - Await pathology results. ? - Repeat upper endoscopy for surveillance based on ? pathology results. ? - Return to GI office PRN. Narrative 07/02/2024 2:19 PM EST [facility] Patient Name: Dominic Gordillo Procedure Date: 07/02/2024 1:48 PM Date of : 1945 Age: 79 Room: ROOM 15 Gender: Male Note Status: Finalized Attending MD: Maxwell Boyle MD, Procedure Date No Time: 07/02/2024 Procedure: ? Upper GI endoscopy Indications: ? Delgadillo's esophagus, Follow-up of Delgadillo's esophagus Providers: ? Maxwell Boyle MD Referring MD: ?Maxwell Boyle MD Medicines: ? Monitored Anesthesia Care Complications: ? No immediate complications. Estimated Blood Loss: ? Estimated blood loss: none. Procedure: ? Pre-Anesthesia Assessment: ? - ASA Grade Assessment: III - A patient with severe ? systemic disease. ? - After reviewing the risks and benefits, the patient ? was deemed in satisfactory condition to undergo the ? procedure. ? After obtaining informed consent, the endoscope was ? passed under direct vision. Throughout the procedure, ? the patient's blood pressure, pulse, and oxygen ? saturations were monitored continuously.The Endoscope ? was introduced through the mouth, and advanced to the ? third part of duodenum. The upper GI endoscopy was ? accomplished without difficulty. The patient tolerated ? the procedure well. Findings: ?The Z-line was variable and was found 40 cm from the ? incisors. ? A medium-sized hiatal hernia was found. The proximal ? extent of the gastric folds (end of tubular esophagus) ? was 40 cm from the incisors. The hiatal narrowing was ? 45 cm from the incisors. ? The esophagus and gastroesophageal junction were ? examined with white light from a forward view and ? retroflexed position. There were esophageal mucosal ? changes consistent with short-segment Delgadillo's ? esophagus. These changes involved the mucosa along an ? irregular Z-line (40 cm from the incisors). ? Wilson-colored mucosa was present. The maximum ? longitudinal extent of these esophageal mucosal ? changes was 3 cm in length. Biopsies were taken with a ? cold forceps for histology. Estimated blood loss was ? minimal. ? The exam of the esophagus was otherwise normal. ? The stomach was normal. ? The examined duodenum was normal. Procedure Code(s): ? --- Professional --- ? 94391, Esophagogastroduodenoscopy, flexible, ? transoral; with biopsy, single or multiple Diagnosis Code(s): ? --- Professional --- ? K22.70, Delgadillo's esophagus without dysplasia CPT copyright 2021 [employer]. All rights reserved. The codes documented in this report are preliminary and upon electoral officer review may be revised to meet current compliance requirements. Maxwell Boyle MD 07/02/2024 2:18:42 PM This report has been signed electronically.Maxwell Boyle MD Number of Addenda: 0 Note Initiated On: 07/02/2024 1:48 PM Scope In: Scope Out: ? Endoscopy Department at [facility] - [address] [place] [address], ? [place] [address] Procedure Note Maxwell Boyle MD - 07/02/2024 [facility] Patient Name: Dominic Gordillo Procedure Date: 07/02/2024 1:48 PM Date of : 1945 Age: 79 Room: ROOM 15 Gender: Male Note Status: Finalized Attending MD: Maxwell Boyle MD, Procedure Date No Time: 07/02/2024 Procedure: Upper GI endoscopy Indications: Delgadillo's esophagus, Follow-up of Delgadillo'sesophagus Providers: Maxwell Boyle MD Referring MD: Maxwell Boyle MD Medicines: Monitored Anesthesia Care Complications: No immediate complications. Estimated Blood Loss: Estimated blood loss: none. Procedure: Pre-Anesthesia Assessment: - ASA Grade Assessment: III - A patient with severe systemic disease. - After reviewing the risks and benefits, thepatient was deemed in satisfactory condition to undergo the procedure. After obtaining informed consent, the endoscope was passed under direct vision. Throughout theprocedure, the patient's blood pressure, pulse, and oxygen saturations were monitored continuously.TheEndoscope was introduced through the mouth, and advanced tothe third part of duodenum. The upper GI endoscopy was accomplished without difficulty. The patienttolerated the procedure well. Findings: The Z-line was variable and was found 40 cm fromthe incisors. A medium-sized hiatal hernia was found. Theproximal extent of the gastric folds (end of tubularesophagus) was 40 cm from the incisors. The hiatal narrowingwas 45 cm from the incisors. The esophagus and gastroesophageal junction were examined with white light from a forward view and retroflexed position. There were esophageal mucosal changes consistent with short-segment Delgadillo's esophagus. These changes involved the mucosa alongan irregular Z-line (40 cm from the incisors). Wilson-colored mucosa was present. The maximum longitudinal extent of these esophageal mucosal changes was 3 cm in length. Biopsies were takenwith a cold forceps for histology. Estimated blood losswas minimal. The exam of the esophagus was otherwise normal. The stomach was normal. The examined duodenum was normal. Procedure Code(s): --- Professional --- 33139, Esophagogastroduodenoscopy, flexible, transoral; with biopsy, single or multiple Diagnosis Code(s): --- Professional --- K22.70, Delgadillo's esophagus without dysplasia CPT copyright 2020 [employer]. All rights reserved. The codes documented in this report are preliminary and upon electoral officer reviewmay be revised to meet current compliance requirements. Maxwell Boyle MD 07/02/2024 2:18:42 PM This report has been signed electronically.Maxwell Boyle MD Number of Addenda: 0 Note Initiated On: 07/02/2024 1:48 PM Scope In: Scope Out: Endoscopy Department at [facility] - [address] [place] [phone] IMPRESSION: - Z-line variable, 40 cm from the incisors. - Medium-sized hiatal hernia. 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 Biopsied. - Normal stomach. - Normal examined duodenum. Recommendation: - Discharge patient to home. - Resume previous diet. - Continue present medications. - Await pathology results. - Repeat upper endoscopy for surveillance based on pathology results. - Return to GI office PRN. us Maxwell Boyle MD GI~PROCEDURE ORDERABLES Final Result * Tissue exam (07/02/2024 2:12 PM EST) Final Diagnosis Esophagus, distal biopsies: Delgadillo's esophagus. Negative for dysplasia. 07/03/2024 9:35 AM EST [facility] Gross Description A. Esophagus, distal biopsies: Labeled distal esophagus . Received in formalin, are multiple irregular soft to rubbery, beauchamp-pink to red tissue fragments, approximately ranging from 0.1 cm to 0.6 cm in greatest diameters and aggregating to 1.5 x 0.8 x 0.2 cm. The specimen is wrapped in paper and submitted in toto in one cassette, multiple pieces, multiple levels. Please note: Small tissue fragments may not survive processing. dvb/DG 07/03/2024 9:35 AM EST [facility] Disclaimer Unless otherwise specified, all tissue is 10% NB formalin fixed and paraffin embedded. 07/03/2024 9:35 AM [facility] Tissue Esophageal structure / Unknown 07/02/2024 2:12 PM EST 07/02/2024 2:45 PM EST us Maxwell Boyle MD LAB PATHOLOGY ORDERABLES Arlin willis Result [facility] [address] [place] [address], from Last 3 Months Insurance [facility] Care Teams Core Drill Operator Relationship Specialty Start Date End Date Juanito Gillespie MD [address] [place] [address] PCP - General Internal Medicine 04/29/24
--- OUTSIDE RECORDS SUMMARY | 2024-08-01 00:58 | XMS_ITS | Encounter Summary ---
Author Name [facility] [place] Organization [facility] Address [address] [place] [id number] Care Team Providers Care Manager Of Distribution Name Role Phone YAMILKA SPENCER Primary Care [...] Name Patient's Relationship to Policy Haile HUMANA [facility] (WNR) MEDICARE ADVANTAGE [facility] (WN) August 28, 2022 [id number] DEUCE GUAJARDO PATIENT MEDICARE (WNR) MEDICARE () PART B Oct 29, 2015 PART B [id number] [phone] DEUCE GUAJARDO PATIENT MEDICARE (WNR) MEDICARE () PART B Oct 29, 2015 PART B [id number] DEUCE GUAJARDO PATIENT MEDICARE (WNR) MEDICARE () PART B Oct 29, 2015 PART B [id number] DEUCE GUAJARDO PATIENT MEDICARE (WNR) MEDICARE () PART B Oct 29, 2015 PART B [id number] DEUCE GUAJARDO PATIENT MEDICARE (WNR) MEDICARE () PART A Jul 29, 2012 PART A [id number] DEUCE GUAJARDO PATIENT MEDICARE (WNR) MEDICARE (M) PART A Jul 29, 2012 PART A [id number] DEUCE GUAJARDO PATIENT MEDICARE (WNR) MEDICARE (M) PART A Jul 29, 2012 PART A [id number] DEUCE GUAJARDO PATIENT MEDICARE (WNR) MEDICARE (M) PART A Jul 29, 2012 PART A [id number] [id number] [phone] DEUCE GUAJARDO PATIENT MEDICARE (WNR) MEDICARE (M) PART B Jul 29, 2012 PART B [id number] DEUCE GUAJARDO PATIENT MEDICARE (WNR) MEDICARE (M) PART A Jul 29, 2012 PART A [id number] [id number] DEUCE GUAJARDO PATIENT MEDICARE PART D (WNR) MEDICARE (M) PART D Apr 30, 2017 PART D [id number] [id number] [phone] DEUCE GUAJARDO PATIENT Selected Encounter This section includes the information on record at [place] for the Encounter. Date/Time Encounter Type Encounter Description Reason Provider Source September 03, 2023 11:30 AM TIME CHECKER COMPA [place] W/ANAL SLEEP STUDY ICD-10-CM G47.33 Obstructive sleep apnea (adult) (pediatric) EMILIE [facility] Encounter Template Text not used by [place] Assessments - Encounter Diagnoses This section includes the primary and secondary diagnoses documented for the Encounter. 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 This section includes future appointments and future orders which are active, pending or scheduled. Active, Pending, and Scheduled Orders This section includes a listing of several types of active, pending, and scheduled orders, including clinic medications orders, diagnostic test orders, procedure orders and consult orders; where the start date of the order is 45 days before the date of the Encounter or 45 days after the date of theEncounter. The data comes from all [place] treatment facilities. Test Date/Time Test Type Test Details Facility Name September 17, 2023 12:00 AM Laboratory - Chemistry Order METABOLIC COMPREHENSIVE BLOOD-LtGN/T(LiHeparin)P LS 7ml PLASMA [facility] September 17, 2023 12:00 AM Laboratory - Chemistry Order CBC & AUTO DIFF BLOOD-LT(EDTA)BLOOD-PLAS TIC5ml [facility] September 17, 2023 12:00 AM Laboratory - Chemistry Order URINALYSIS (w/Microscopic) URINE TUBE [facility] September 17, 2023 12:00 AM Laboratory - Chemistry Order LIPID PANEL BLOOD-LtGN/T(LiHeparin)P LS 7ml PLASMA [facility] September 17, 2023 12:00 AM Laboratory - Chemistry Order HGB A1C BLOOD-LT(EDTA)BLOOD-PLAS TIC5ml [facility] September 17, 2023 12:00 AM Laboratory - Chemistry Order TSH BLOOD-GOLD(SST)SerumPLAS TIC7mL SERUM [facility] Social History: Smoking Status (Most current) and Tobacco Use (All prior to encounter date) This section includes the most current, and the historical, smoking and tobacco- related health factors from the [place] facility where the Encounter took place. Current Smoking Status This section includes the most current smoking, or tobacco-related health factor, from the [place] facility where the Encounter took place. Date/Time Current Smoking Status Comment Facil ity Jun 28, 2022 01:00 PM VA-TOBACCO FORMER USER [facility] Tobacco Use History This section includes a history of the smoking, or tobacco-related health factors, that were collected on or before the date of the Encounter. The data comes from the [place] facility where the Encounter took place. Date/Time Smoking Status/Tobacco Use Comment F acility Jun 28, 2022 01:00 PM [place]-TOBACCO QUIT 15 YRS OR MORE [facility] Encounter Notes: All associated encounter notes This section contains the clinical notes associated to the Encounter. Date/Time Encounter Note(s) Provider Source September 03, 2023 11:46 AM SLEEP MEDICINE NOT E: LOCAL TITLE: SLEEP INSPIRE STANDARD TITLE: SLEEP MEDICINE NOTE DATE OF NOTE: SEPTEMBER 03, 2023@11:46 ENTRY DATE: SEPTEMBER 03, 2023@11:47:10 AUTHOR: ATILIO PHAN EXP COSIGNER: URGENCY: STATUS: COMPLETED [place] presents to the sleep clinic for his Inspire (Hypoglossal Nerve Stimulator) follow up. Inspire rep instructed the patient to complete HST on 4.2 , Patient tolerated adjustments well. Final settings as follows: INCOMMING SETTINGS Stimulation Patient Control(V) 3.4-4.4 Start Delay(min) 60 Pause Time(min) 30 Therapy Duration(H) 7 Threshold Outgoing Amplitude 3.6 Pulse Width 180 Rate (Hz) 33 Max stim Time(S) 4 Elec Config -+- OUTOING SETTING Stimulation Patient Control(V) 3.7-4.7 Start Delay(min) 60 Pause Time(min) 30 Therapy Duration(H) 7 Threshold Outgoing Amplitude 4.2 Pulse Width 60 Rate (Hz) 40 Max stim Time(S) 4 Elec Config -+- Waiting on HST results. Time spent with patient 30 mins. /timur/ July EMILIE [facility] Type Technician - Edi Coordinator. Signed: 09/03/2023 12:08 Receipt Acknowledged By: 09/04/2023 08:05 /es/ DOLLY MAY MD SLEEP STAFF PHYSICIAN EMILIEJuly [facility] September 03, 2023 11:30 AM SLEEP MEDICINE CON SULT: LOCAL TITLE: SLEEP CONSULT RESULT STANDARD TITLE: SLEEP MEDICINE CONSULT DATE OF NOTE: SEPTEMBER 03, 2023@11:30 ENTRY DATE: SEPTEMBER 06, 2023@14:22:21 AUTHOR: CLEMENTE PADILLA EXP COSIGNER: URGENCY: STATUS: COMPLETED [facility] HOME SLEEP APNEA TEST- WatchPAT IDENTIFICATION: Name (Last, First): ALEENA GUAJARDO : 1945 Referred by: Not Available Study date: 09/06/2023 STUDY TECHNIQUE AND DEFINITIONS: The WatchPAT device monitors and measures variations in peripheral arterial tone via an opto-pneumatic finger-mounted probe. Additional recorded channels include pulse rate, oximetry, actigraphy, body position, chest motion, and snore sensor. Sleep/wake detection is based upon actigraphy data; and sleep staging is thereafter based upon variability in pulse rate, attenuation and variability of PAT amplitude, and inter-pulse period features. The PAT Apnea-Hypopnea Index (pAHI) and PAT Respiratory Disturbance Index (pRDI) are estimates of conventional pAHI and pRDI values produced by polysomnography. pAHI-4% is calculated using oxygen desaturations of 4% ([place]/[facility] standard). PATIENT HISTORY: 78 year old Male with [...] continued. - Avoid alcohol, sedatives and other [employer] depressants that may worsen sleep apnea and disrupt normal sleep architecture. - Consider positional therapy to avoid supine position during sleep. - Patient should have follow up in INSPIRE clinic to adjust device as needed. If INPSIRE is not working, can consider alternative therapy such as CPAP in future. /timur/ CLEMENTE PADILLA MD Staff Physician Signed: 09/06/2023 14:22 CLEMENTE PADILLA [facility]
--- OUTSIDE RECORDS SUMMARY | 2024-08-01 00:58 | XMS_ITS | Encounter Summary ---
Author Name [facility] ([place]) Organization Department of [facility] ([place]) Address [address] [place] [address] Care Team Providers Care Community Facilitator Name Role Phone YAMILKA SPENCER Primary Care [...] Name Patient's Relationship to Policy Haile HUMANA [facility] (WNR) MEDICARE ADVANTAGE [facility] (WNR) August 28, 2022 [id number] [phone] DEUCE GUAJARDO Dave PATIENT MEDICARE (WNR) MEDICARE (M) PART B Oct 29, 2015 PART B [id number] CASANDRADEUCE Dave PATIENT MEDICARE (WNR) MEDICARE (M) PART B Oct 29, 2015 PART B [id number] [id number] [phone] DEUCE GUAJARDO Dave PATIENT MEDICARE (WNR) MEDICARE (M) PART B Oct 29, 2015 PART B [id number] [phone] CASANDRADEUCE Dave PATIENT MEDICARE (WNR) MEDICARE (M) PART B Oct 29, 2015 PART B [id number] [id number] DEUCE GUAJARDO Dave PATIENT MEDICARE (WNR) MEDICARE (M) PART A Jul 29, 2012 PART A [id number] CASANDRADEUCE Dave PATIENT MEDICARE (WNR) MEDICARE (M) PART A Jul 29, 2012 PART A [id number] [phone] DEUCE GUAJARDO PATIENT MEDICARE (WNR) MEDICARE (M) PART A Jul 29, 2012 PART A [id number] [phone] DEUCE GUAJARDO PATIENT MEDICARE (WNR) MEDICARE (M) PART A Jul 29, 2012 PART A [id number] DEUCE GUAJARDO PATIENT MEDICARE (WNR) MEDICARE (M) PART B Jul 29, 2012 PART B [id number] [id number] [phone] DEUCE GUAJARDO PATIENT MEDICARE (WNR) MEDICARE (M) PART A Jul 29, 2012 PART A [id number] [id number] DEUCE GUAJARDO PATIENT MEDICARE PART D (WNR) MEDICARE (M) PART D Apr 30, 2017 PART D [id number] DEUCE GUAJARDO PATIENT Selected Encounter This section includes the information on record at [place] for the Encounter. Date/Time Encounter Type Encounter Description Reason Pro vider Source Mar 12, 2024 10:56 AM CASE MANAGEMENT ADMIN PAT ACTIVTIES (MASNONCT) AMY MELENDEZ IHElizabeth Encounter Template Text not used by [place] Plan of Treatment: Future Appointments (+ 6 months) and Future Tests (+/- 45 days) The Plan of Treatment section includes future care activities for the patient from all [place] treatmentfacilities. This section includes future appointments and future orders which are active, pending or scheduled. Future Appointments This section includes appointments that were scheduled to occur 6 months from the date of the Encounter, up to a maximum of 20 appointments. The data comes from all [place] treatment facilities. Appointment Date/Time Appointment Type Appointme nt Facility Name Mar 26, 2024 11:00 AM AMBULATORY - MEDICINE [place] [facility] [place] [facility] Apr 14, 2024 11:00 AM AMBULATORY - MEDICINE [place] [facility] [place] [facility] Apr 17, 2024 08:30 AM AMBULATORY - MEDICINE [place] [facility] [place] [facility] Apr 17, 2024 08:30 AM AMBULATORY - MEDICINE [place] [facility] May 06, 2024 01:00 PM AMBULATORY - PSYCHIATRY [facility] May 20, 2024 11:00 AM AMBULATORY - MEDICINE [place] [facility] [place] [place] [facility] May 20, 2024 03:00 PM AMBULATORY - [facility]CH[facility]ATRY [facility] May 21, 2024 11:00 AM AMBULATORY - MEDICINE [place] [facility] [place] [facility] May 26, 2024 03:00 PM AMBULATORY - MEDICINE [place] [facility] [place] [facility] Jun 04, 2024 01:00 PM AMBULATORY - MEDICINE [place] [facility] [place] [facility] Jun 27, 2024 09:30 AM AMBULATORY - MEDICINE [place] [facility] [place] [facility] Jul 06, 2024 10:30 AM AMBULATORY - MEDICINE [place] [facility] [place] [place] [facility] Jul 07, 2024 01:00 PM AMBULATORY - REHAB MEDICIN E [facility] [place] [facility] Jul 24, 2024 09:30 AM AMBULATORY - MEDICINE [place] [facility] [place] [facility] Jul 24, 2024 10:00 AM AMBULATORY - MEDICINE [place] [facility] [place] [facility] Jul 31, 2024 11:00 AM AMBULATORY - REHAB MEDICIN E [facility] [place] [facility] Aug 04, 2024 09:00 AM AMBULATORY - MEDICINE [place] [facility] [place] [place] [facility] Aug 05, 2024 01:00 PM AMBULATORY - MEDICINE [place] [facility] [place] [facility] Aug 07, 2024 09:00 AM AMBULATORY - MEDICINE [place] [facility] [place] [facility] Aug 07, 2024 09:00 AM AMBULATORY - MEDICINE [facility] [place] [facility] Social History: Smoking Status (Most current) and Tobacco Use (All prior to encounter date) This section includes the most current, and the historical, smoking and tobacco- related health factors from the [place] facility where the Encounter took place. Current Smoking Status This section includes the most current smoking, or tobacco-related health factor, from the [place] facility where the Encounter took place. Date/Time Current Smoking Status Comment Facil ity Jun 28, 2022 01:00 PM VA-TOBACCO FORMER USER [facility] Tobacco Use History This section includes a history of the smoking, or tobacco-related health factors, that were collected on or before the date of the Encounter. The data comes from the [place] facility where the Encounter took place. Date/Time Smoking Status/Tobacco Use Comment F acility Jun 28, 2022 01:00 PM VA-TOBACCO QUIT 15 YRS OR MORE [facility] Encounter Notes: All associated encounter notes This section contains the clinical notes associated to the Encounter. Date/Time Encounter Note(s) Provider Source Mar 12, 2024 10:56 AM ADMINISTRATIVE NOT E: LOCAL TITLE: T/RV Coordinator STANDARD TITLE: ADMINISTRATIVE NOTE DATE OF NOTE: MAR 12, 2024@10:56 ENTRY DATE: MAR 12, 2024@10:57:03 AUTHOR: AMY MELENDEZ EXP COSIGNER: URGENCY: STATUS: COMPLETED Care coordination initiated. Local consult received for this Plaza requesting care coordination through the TVC process. Consult reviewed by this coordinator and forwarded via TVC IFC. Pending approval for [facility] at the [facility]. /timur/ Amy Melendez, MSN, SUPERINTENDENT REFUSE DISPOSAL, PRINTING AGENT-C Nurse Practitioner Signed: 03/12/2024 10:57 AMY MELENDEZ [facility]
--- OUTSIDE RECORDS SUMMARY | 2024-08-01 00:58 | XMS_ITS | Encounter Summary ---
Author Name [facility]) Organization [facility] [place] Address [address] [place] [address] Care Team Providers Care Configuration Specialist Name Role Phone YAMILKA SPENCER Primary Care [...] Relationship to Policy Haile HUMANA [facility] (WNR) MEDICARE ADVANTAGE [facility] (WNR) August 28, 2022 [id number] [phone] DEUCE GUAJARDO PATIENT MEDICARE (WNR) MEDICARE (M) PART B Oct 29, 2015 PART B [id number] [phone] DEUCE GUAJARDO PATIENT MEDICARE (WNR) MEDICARE (M) PART B Oct 29, 2015 PART B [id number] CASANDRADEUCE Dave PATIENT MEDICARE (WNR) MEDICARE (M) PART B Oct 29, 2015 PART B [id number] [id number] DEUCE GUAJARDO PATIENT MEDICARE (WNR) MEDICARE (M) PART B Oct 29, 2015 PART B [id number] [id number] DEUCE GUAJARDO PATIENT MEDICARE (WNR) MEDICARE (M) PART A Jul 29, 2012 PART A [id number] DEUCE GUAJARDO PATIENT MEDICARE (WNR) MEDICARE (M) PART A Jul 29, 2012 PART A [id number] [phone] DEUCE GUAJARDO PATIENT MEDICARE (WNR) MEDICARE (M) PART A Jul 29, 2012 PART A [id number] DEUCE GUAJARDO PATIENT MEDICARE (WNR) MEDICARE (M) PART B Jul 29, 2012 PART B [id number] DEUCE GUAJARDO PATIENT MEDICARE (WNR) MEDICARE (M) PART A Jul 29, 2012 PART A [id number] CV64 [id number] DEUCE GUAJARDO PATIENT MEDICARE (WNR) MEDICARE (M) PART A Jul 29, 2012 PART A [id number] [id number] DEUCE GUAJARDO PATIENT MEDICARE PART D (WNR) MEDICARE (M) PART D Apr 30, 2017 PART D [id number] DEUCE GUAJARDO PATIENT Selected Encounter This section includes the information on record at [place] for the Encounter. Date/Time Encounter Type Encounter Description Reason Pro vider Source Nov 21, 2023 11:23 AM Outpatient Encounter ADMIN PAT ACTIVTIES (MASNONCT) IHE Encounter Template Text not used by [place] Plan of Treatment: Future Appointments (+ 6 months) and Future Tests (+/- 45 days) The Plan of Treatment section includes future care activities for the patient from all [place] treatmentfacilities. This section includes future appointments and future orders which are active, pending or scheduled. Future Appointments This section includes appointments that were scheduled to occur 6 months from the date of the Encounter, up to a maximum of 20 appointments. The data comes from all [place] treatment facilities. Appointment Date/Time Appointment Type Appointme nt Facility Name Mar 26, 2024 11:00 AM AMBULATORY - MEDICINE [place] [facility] [place] [place] [facility] Apr 14, 2024 11:00 AM AMBULATORY - MEDICINE [place] [facility] [place] [facility] Apr 17, 2024 08:30 AM AMBULATORY - MEDICINE [place] [facility] Apr 17, 2024 08:30 AM AMBULATORY - MEDICINE [place] [facility] [place] [facility] May 06, 2024 01:00 PM AMBULATORY - PSYCHIATRY [facility] May 20, 2024 11:00 AM AMBULATORY - MEDICINE [facility] May 20, 2024 03:00 PM AMBULATORY - PSYCHIATRY [facility] May 21, 2024 11:00 AM AMBULATORY - MEDICINE [facility] Social History: Smoking Status (Most current) and Tobacco Use (All prior to encounter date) This section includes the most current, and the historical, smoking and tobacco- related health factors from the [place] facility where the Encounter took place. Current Smoking Status This section includes the most current smoking, or tobacco-related health factor, from the [place] facility where the Encounter took place. Date/Time Current Smoking Status Comment Facil ity Jun 28, 2022 01:00 PM VA-TOBACCO FORMER USER [facility] Tobacco Use History This section includes a history of the smoking, or tobacco-related health factors, that were collected on or before the date of the Encounter. The data comes from the [place] facility where the Encounter took place. Date/Time Smoking Status/Tobacco Use Comment F acility Jun 28, 2022 01:00 PM [place]-TOBACCO QUIT 15 YRS OR MORE [facility] Encounter Notes: All associated encounter notes This section contains the clinical notes associated to the Encounter. Date/Time Encounter Note(s) Provider Source Nov 21, 2023 11:23 AM ADMINISTRATIVE NOT E: LOCAL TITLE: T/RV consult STANDARD TITLE: ADMINISTRATIVE NOTE DATE OF NOTE: NOV 21, 2023@11:23 ENTRY DATE: NOV 21, 2023@11:23:51 AUTHOR: AMY MELENDEZ COSIGNER: URGENCY: STATUS: COMPLETED TVC Care coordination complete. Will alert the 's primary care team to note from the [facility] for review & f/u. This is a notification that the assigned Dana was admitted or presented to the ER, please facilitate any referrals for services or orders as indicated Emergency Notification Date Presenting to the Facility: Oct Method of Contact: [facility] Name: Hospital: [facility] City: [place] State: [place] Chief complaint: Back pain Disposition Discharged Date of discharge: Oct Discharge to home Notification ID: [id number] Clinical Review Full ED Note available in [facility] Summaries and Documents: -Clinical Impression: Acute low back pain -New Prescriptions: prednisone -Primary Care Provider - follow up when home -If symptoms persist, consider MRI, Physical therapy -Continue Tylenol and lidocaine patches /timur/ Amy Melendez, MSN, ELECTRICAL DRAFTER, AUTOMOTIVE PAINT TECHNICIAN-C Nurse Practitioner Signed: 11/21/2023 11:26 Receipt Acknowledged By: 12/19/2023 09:35 /es/ Braulio Panda Sr. R.N. Restaurant Bartender: PACT Industrial Rehabilitation Consultant 11/22/2023 14:26 /es/ Mildred Mckoy MD Staff Physician 11/23/2023 15:16 /es/ ARABELLA MCDOWELL LVN Licensed Vocational Nurse AMY MELENDEZ [facility]
--- OUTSIDE RECORDS SUMMARY | 2024-08-01 00:58 | XMS_ITS | Encounter Summary ---
Author Name [facility] [place] Organization [facility] [place] Address [address] [place] [address] Care Team Providers Care Tenant Selector Name Role Phone YAMILKA SPENCER Primary Care [...] Name Patient's Relationship to Policy Haile [employer]MANA [facility] (WNR) MEDICARE ADVANTAGE [facility] ([facility] August 28, 2022 [id number] [phone] DEUCE GUAJARDO PATIENT MEDICARE (WN) MEDICARE () PART B Oct 29, 2015 PART B [id number] [phone] DEUCE GUAJARDO PATIENT MEDICARE (WNR) MEDICARE () PART B Oct 29, 2015 PART B [id number] [phone] DEUCE GUAJARDO PATIENT MEDICARE (WNR) MEDICARE () PART B Oct 29, 2015 PART B [id number] [phone] DEUCE GUAJARDO PATIENT MEDICARE (WNR) MEDICARE () PART B Oct 29, 2015 PART B [id number] [phone] DEUCE GUAJARDO PATIENT MEDICARE (WNR) MEDICARE () PART A Jul 29, 2012 PART A [id number] DEUCE GUAJARDO PATIENT MEDICARE (WNR) MEDICARE (M) PART A Jul 29, 2012 PART A [id number] [phone] DEUCE GUAJARDO PATIENT MEDICARE (WNR) MEDICARE (M) PART A Jul 29, 2012 PART A [id number] [phone] DEUCE GUAJARDO PATIENT MEDICARE (WNR) MEDICARE (M) PART A Jul 29, 2012 PART A [id number] DEUCE GUAJARDO PATIENT MEDICARE (WNR) MEDICARE (M) PART B Jul 29, 2012 PART B [id number] DEUCE GUAJARDO PATIENT MEDICARE (WNR) MEDICARE (M) PART A Jul 29, 2012 PART A [id number] DEUCE GUAJARDO PATIENT MEDICARE PART D (WNR) MEDICARE (M) PART D Apr 30, 2017 PART D [id number] DEUCE GUAJARDO PATIENT Selected Encounter This section includes the information on record at [place] for the Encounter. Date/Time Encounter Type Encounter Description Reason Pro vider Source Jul 28, 2024 01:17 PM Outpatient Encounter ADMIN PAT ACTIVTIES (MASNONCT) IHE Encounter Template Text not used by DC Plan of Treatment: Future Appointments (+ 6 [...] Appointment Type Appointme nt Facility Name Jul 31, 2024 11:00 AM AMBULATORY - REHAB MEDICIN [facility] [place] [facility] Aug 04, 2024 09:00 AM AMBULATORY - MEDICINE [place] [facility] [place] [facility] Aug 05, 2024 01:00 PM AMBULATORY - MEDICINE DC [facility] [place] [facility] Aug 07, 2024 09:00 AM AMBULATORY - MEDICINE DC [facility] [place] [facility] Aug 07, 2024 09:00 AM AMBULATORY - [place]ICINE [place] [facility] September 08, 2024 03:00 PM [facility] Nov 24, 2024 09:00 AM [facility] Dec 02, 2024 01:00 PM [facility] Dec 02, 2024 01:00 PM AMBULATORY - MEDICINE [facility] [place] [facility] Active, Pending, and Scheduled Orders This [...] Order BASIC METABOLIC PANEL (non-fasting) BLOOD (SST[facility]SERUM[facility] Jul 25, 2024 12:00 AM Laboratory - Chemistry Order CBC AND DIFF (AUTO) BLOOD (LAV-BLOOD) SP [facility] Jul 25, 2024 12:00 AM Laboratory - Chemistry Order LIVER FUNCTION BLOOD (SST-SERUM) [facility] Jul 25, 2024 03:29 PM Consult Order VISN 1 [facility]PHROLOGY OUTPT [facility] CT Cons [employer] [facility] Lab Results: +/- 30 days of [...] Range Comment Jul 24, 2024 10:30 AM [facility] CBC AND DIFF (AUTO) Specimen Type: BLOOD No comment entered. Ordering Provider: PAULINA GONZALEZ Report Released Date/Time: Jul 09, 2024 08:44 AM Reporting Lab: [address] [address] Performing Lab: [facility] [address] [facility] [facility] [address] WBC 12.79 10*3/uL H 4.50-11.00 RBC 3.58 [...] 10*3/uL 0.00-0.00 Jul 24, 2024 10:30 AM [facility] BASIC METABOLIC PANEL (non-fasting) Specimen Type: SERUM No comment entered. Ordering Provider: PAULINA GONZALEZ Report Released Date/Time: Jul 09, 2024 08:44 AM Reporting Lab: [facility] [address] [facility] [address] Performing Lab: [facility] [address] [facility] [facility] [address] UREA NITROGEN 26 mg/dL H 7-25 GLUCOSE 122 mg/dL H 65-100 SODIUM 135 mmol/L 135-145 POTASSIUM 3.8 mmol/L 3.5-5.0 CHLORIDE 102 mmol/L 100-110 CO2 23 meq/L 20-30 CALCIUM 8.3 mg/dL L 8.5-10.2 CREATININE, Serum 2.28 mg/dL H 0.50-1.40 eGFR(CKD-EPI 2020) 29 mL/min L >60 Jul 24, 2024 10:30 AM [facility] LIVER FUNCTION Specimen Type: SERUM No comment entered. Ordering Provider: PAULINA GONZALEZ Report Released Date/Time: Jul 09, 2024 08:44 AM Reporting Lab: [address] [address] Performing Lab: [address] [address] PROTEIN,TOTAL 6.2 g/dL 6.0-8.3 ALBUMIN 3.6 g/dL 3.5-5.0 ALKALINE PHOSPHATASE 92 U/L 40-150 AST 15 U/L 5-34 ALT 18 U/L BILIRUBIN, TOTAL 1.6 mg/dL H 0.2-1.2 BILIRUBIN, DIRECT 0.6 mg/dL H 0-0.5 Jul 24, 2024 10:30 AM [facility] LIPID PANEL, NON FASTING Specimen Type: SERUM No comment entered. Ordering Provider: PAULINA GONZALEZ Report Released Date/Time: Jul 09, 2024 08:44 AM Reporting Lab: [address] [address] Performing Lab: [address] [address] CHOLESTEROL 111 mg/dL TRIGLYCERIDE 180 mg/dL H 0-150 LDL calculated 33 mg/dL 0-129 CHOL/HDL 2.6 HDL CHOLESTEROL 42 mg/dL 40-60 Jul 24, 2024 10:30 AM [facility] CREATININE (eGFR 2020) Specimen Type: SERUM No comment entered. Ordering Provider: PAULINA GONZALEZ Report Released Date/Time: Jul 09, 2024 08:44 AM Reporting [facility] [address] [facility] [address] Performing Lab: [address] [address] CREATININE, Serum 2.28 mg/dL H 0.50-1.40 eGFR(CKD-EPI 2020) 29 mL/min L >60
--- OUTSIDE RECORDS SUMMARY | 2024-08-01 00:58 | XMS_ITS | Encounter Summary ---
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 documented in the EMLR. Essential Medication List for Review used to complete this medication reconciliation. INCLUDED IN THIS LIST: Alphabetical list of active outpatient prescriptions dispensed from this VA (local) and dispensed from another VA or DoD facility (remote) as well as [...] whether with a VA or non-VA provider. // Paulina Gonzalez MD Staff Physician Signed: 04/17/2024 09:49 PAULINA GONZALEZ [facility]
--- OUTSIDE RECORDS SUMMARY | 2024-08-01 00:58 | XMS_ITS | Encounter Summary ---
Author Name Department of [facility] ([place]) Organization [facility] ([place]) Address [address] [place] [address] Care Team Providers Care Inspector Final Assembly Electrical Name Role Phone YAMILKA SPENCER Primary Care [...] Name Patient's Relationship to Policy Haile HUMANA [facility] (WNR) MEDICARE ADVANTAGE [facility] (WNR) August 28, 2022 [id number] DEUCE GUAJARDO Dave PATIENT MEDICARE (WNR) MEDICARE (M) PART B Oct 29, 2015 PART B [id number] [id number] [phone] CASANDRADEUCE Dave PATIENT MEDICARE (WNR) MEDICARE (M) PART B Oct 29, 2015 PART B [id number] [phone] CASANDRADEUCE Dave PATIENT MEDICARE (WNR) MEDICARE (M) PART B Oct 29, 2015 PART B [id number] [id number] [phone] CASANDRADEUCE Dave PATIENT MEDICARE (WNR) MEDICARE (M) PART B Oct 29, 2015 PART B [id number] CV64 [phone] DEUCE GUAJARDO Dave PATIENT MEDICARE (WNR) MEDICARE (M) PART A Jul 29, 2012 PART A [id number] CASANDRADEUCE Dave PATIENT MEDICARE (WNR) MEDICARE (M) PART A Jul 29, 2012 PART A [id number] [phone] DEUCE GUAJARDO PATIENT MEDICARE (WNR) MEDICARE (M) PART A Jul 29, 2012 PART A [id number] CV64 [phone] DEUCE GUAJARDO PATIENT MEDICARE (WNR) MEDICARE (M) PART B Jul 29, 2012 PART B [id number] DEUCE GUAJARDO PATIENT MEDICARE (WNR) MEDICARE (M) PART A Jul 29, 2012 PART A [id number] CV64 [id number] DEUCE GUAJARDO PATIENT MEDICARE (WNR) MEDICARE (M) PART A Jul 29, 2012 PART A [id number] [id number] [phone] DEUCE GUAJARDO PATIENT MEDICARE PART D (WNR) MEDICARE (M) PART D Apr 30, 2017 PART D [id number] DEUCE GUAJARDO PATIENT Selected Encounter This section includes the information on record at [place] for the Encounter. Date/Time Encounter Type Encounter Description Reason Pro vider Source Oct 23, 2023 09:38 AM CASE MANAGEMENT ADMIN PAT ACTIVTIES (MASNONCT) TAQUERIA FREITAS Encounter Template Text not used by [place] Plan of Treatment: Future Appointments (+ 6 months) and Future Tests (+/- 45 days) The Plan of Treatment section includes future care activities for the patient from all [place] treatmentfacilities. This section includes future appointments and future orders which are active, pending or scheduled. Future Appointments This section includes appointments that were scheduled to occur 6 months from the date of the Encounter, up to a maximum of 20 appointments. The data comes from all [place] treatment facilities. Appointment Date/Time Appointment Type Appointme nt Facility Name Mar 26, 2024 11:00 AM AMBULATORY - MEDICINE [facility] [place] [facility] Apr 14, 2024 11:00 AM AMBULATORY - MEDICINE [facility] [place] [facility] Apr 17, 2024 08:30 AM AMBULATORY - MEDICINE [facility] [place] [facility] Apr 17, 2024 08:30 AM [facility] Active, Pending, and Scheduled Orders This section includes a listing of several types of active, pending, and scheduled orders, including clinic medications orders, diagnostic test orders, procedure orders and consult orders; where the start date of the order is 45 days before the date of the Encounter or 45 days after the date of theEncounter. The data comes from all [place] treatment [facility]. Test Date/Time Test Type Test Details Facility Name September 17, 2023 12:00 AM Laboratory - Chemistry Order METABOLIC COMPREHENSIVE BLOOD-LtGN/T(LiHeparin)P LS 7ml PLASMA [facility] September 17, 2023 12:00 AM Laboratory - Chemistry Order CBC & AUTO DIFF BLOOD-LT(EDTA)BLOOD-PLAS TIC5ml [facility] September 17, 2023 12:00 AM Laboratory - Chemistry Order URINALYSIS (w/Microscopic) URINE TUBE [facility] September 17, 2023 12:00 AM Laboratory - Chemistry Order LIPID PANEL BLOOD-LtGN/T(LiHeparin)P LS 7ml PLASMA [facility] September 17, 2023 12:00 AM Laboratory - Chemistry Order HGB A1C BLOOD-LT(EDTA)BLOOD-PLAS TIC5ml [facility] September 17, 2023 12:00 AM Laboratory - Chemistry Order TSH BLOOD-GOLD(SST)SerumPLAS TIC7mL SERUM [facility] Social History: Smoking Status (Most current) and Tobacco Use (All prior to encounter date) This section includes the most current, and the historical, smoking and tobacco- related health factors from the [place] facility where the Encounter took place. Current Smoking Status This section includes the most current smoking, or tobacco-related health factor, from the [place] facility where the Encounter took place. Date/Time Current Smoking Status Comment Dheeraj ity Jun 28, 2022 01:00 PM VA-TOBACCO FORMER USER [facility] Tobacco Use History This section includes a history of the smoking, or tobacco-related health factors, that were collected on or before the date of the Encounter. The data comes from the [place] facility where the Encounter took place. Date/Time Smoking Status/Tobacco Use Comment F acility Jun 28, 2022 01:00 PM [place]-TOBACCO QUIT 15 YRS OR MORE [facility] Encounter Notes: All associated encounter notes This section contains the clinical notes associated to the Encounter. Date/Time Encounter Note(s) Provider Source Oct 23, 2023 09:38 AM ADMINISTRATIVE NOT E: LOCAL TITLE: T/RV consult STANDARD TITLE: ADMINISTRATIVE NOTE DATE OF NOTE: OCT 23, 2023@09:38 ENTRY DATE: OCT 23, 2023@09:38:23 AUTHOR: TAQUERIA FREITAS EXP COSIGNER: URGENCY: STATUS: COMPLETED Alerting [facility] PACT to Emergency/Hospital notification consult from [facility]. /timur/ Taqueria Freitas [facility], BSN, AGPCNP-C Signed: 10/23/2023 09:39 Receipt Acknowledged By: 11/02/2023 10:05 /es/ Braulio Panda Sr. RKenyonNKenyon Drafter Commercial: PACT Instructional Support Technician 10/23/2023 10:05 /es/ Mildred Mckoy MD Staff Physician 10/23/2023 12:23 /es/ ARABELLA MCDOWELL LVN Licensed Vocational Nurse TAQUERIA FREITAS [facility]
--- OUTSIDE RECORDS SUMMARY | 2024-08-01 00:58 | XMS_ITS | Encounter Summary ---
Author Name [facility] [place] [facility] [place] Address [address] [place] [address] Care Team Providers Care Machine Stone Polisher Apprentice Name Role Phone YAMILKA SPENCER Primary Care [...] Name Patient's Relationship to Policy Haile HUMANA [facility] (WNR) MEDICARE ADVANTAGE [facility] ([facility]) August 28, 2022 [id number] [phone] DEUCE GUAJARDO PATIENT MEDICARE (WN) MEDICARE () PART B Oct 29, 2015 PART B [id number] DEUCE GUAJARDO PATIENT MEDICARE (WNR) MEDICARE () PART B Oct 29, 2015 PART B [id number] [id number] [id number] DEUCE GUAJARDO PATIENT MEDICARE (WN) MEDICARE () PART B Oct 29, 2015 PART B [id number] [phone] DEUCE GUAJARDO PATIENT MEDICARE (WNR) MEDICARE () PART B Oct 29, 2015 PART B [id number] [id number] DEUCE GUAJARDO PATIENT MEDICARE (WN) MEDICARE () PART A Jul 29, 2012 PART A [id number] DEUCE GUAJARDO PATIENT MEDICARE (WNR) MEDICARE (M) PART A Jul 29, 2012 PART A [id number] [id number] [phone] DEUCE GUAJARDO PATIENT MEDICARE (WNR) MEDICARE (M) PART A Jul 29, 2012 PART A [id number] [id number] [phone] DEUCE GUAJARDO PATIENT MEDICARE (WNR) MEDICARE (M) PART A Jul 29, 2012 PART A [id number] DEUCE GUAJARDO PATIENT MEDICARE (WNR) MEDICARE (M) PART B Jul 29, 2012 PART B [id number] DEUCE GUAJARDO PATIENT MEDICARE (WNR) MEDICARE (M) PART A Jul 29, 2012 PART A [id number] [phone] DEUCE GUAJARDO PATIENT MEDICARE PART D (WNR) MEDICARE (M) PART D Apr 30, 2017 PART D [id number] [id number] [phone] DEUCE GUAJARDO PATIENT Selected Encounter This section includes the information on record at [place] for the Encounter. Date/Time Encounter Type Encounter Description Reason Provider Source May 20, 2024 03:00 PM OFF/OP EST AUGUST X REQ PHY/[facility] - IND ICD-10-CM F32.A Depression, unspecified COOKLYNDA Elizabeth Encounter Template Text not used by [place] Assessments - Encounter Diagnoses This section includes the primary and secondary diagnoses documented for the Encounter. Date/Time Primary/Secondary Diagnosis Diagnosis Name Provider Source May 20, 2024 04:36 PM PRIMARY Depression, unspecified LYNDA COOK CB May 20, 2024 04:36 PM SECONDARY Alcohol dependence, uncomplicated JOYCE,LYNDA JOYCE [facility] Plan of Treatment: Future Appointments (+ 6 months) and Future Tests (+/- 45 days) The Plan of Treatment section includes future care activities for the patient from all [place] treatmentfacilities. This section includes future appointments and future orders which are active, pending or scheduled. Future Appointments This section includes appointments that were scheduled to occur 6 months from the date of the Encounter, up to a maximum of 20 appointments. The data comes from all [place] treatment facilities. Appointment Date/Time Appointment Type Appointme nt Facility Name May 21, 2024 11:00 AM AMBULATORY - MEDICINE [place] [facility] [place] [facility] May 26, 2024 03:00 PM AM[facility]ULATORY [facility] MEDICINE [facility] [place] [place] [facility] Jun 04, 2024 01:00 PM AMBULATORY [facility] MEDICINE [facility] [place] [place] [facility] Jun 27, 2024 09:30 AM AMBULATORY - MEDICINE [facility] [place] [place] [facility] Jul 06, 2024 10:30 AM AMBULATORY [facility] MEDICINE [facility] [place] [place] [facility] Jul 07, 2024 01:00 PM AMBULATORY - REHAB MEDICIN E [facility] [place] [facility] Jul 24, 2024 09:30 AM AMBULATORY - MEDICINE [facility] [place] [facility] Jul 24, 2024 10:00 AM AMBULATORY - MEDICINE [facility] [place] [facility] Jul 31, 2024 11:00 AM AMBULATORY - REHAB MEDICIN E [facility] [place] [facility] Aug 04, 2024 09:00 AM AMBULATORY - MEDICINE [facility] [place] [facility] Aug 05, 2024 01:00 PM AMBULATORY - MEDICINE [facility] [place] [facility] Aug 07, 2024 09:00 AM AMBULATORY - MEDICINE [facility] [place] [place] [facility] Aug 07, 2024 09:00 AM AMBULATORY - MEDICINE [facility] September 08, 2024 03:00 PM AMBULATORY - PSYCHIATRY [facility] [place] [facility] Active, Pending, and Scheduled Orders This section includes a listing of several types of active, pending, and scheduled orders, including clinic medications orders, diagnostic test orders, procedure orders and consult orders; where the start date of the order is 45 days before the date of the Encounter or 45 days after the date of theEncounter. The data comes from all [place] treatment facilities. Test Date/Time Test Type Test Details Facility Name May 06, 2024 02:44 PM Consult Order PSYCHIATRI C MEDICATION POPC OUTPT [facility] Jun 04, 2024 01:46 PM Consult Order [facility]-SLEEP STUDY [facility] [place] [facility] Jun 10, 2024 02:52 PM Consult Order COMMUNITY [facility]-BH PSYCHOTHERAPY [facility] Lab Results: +/- 30 days of the encounter This section includes the Chemistry and Hematology Lab Results on record with [place] for the patient. Radiology Reports and Pathology Reports are provided separately, in subsequent sections. Lab Results This section contains the Chemistry/Hematology Results that were resulted 30 days before or 30 daysafter the date of the Encounter. Date/Time Source Result Type Result - Unit Interpretation Reference Range Comment May 20, 2024 10:57 AM [facility] VITAMIN D 25-OH (Therapy monitor) Specimen [...] For additional information, please refer to http://education .PingMD/faq/ELN649 (This link is being provided for informational/ educational purposes only.) This test was developed and its analytical performance characteristics have been determined by [employer], [place]. It has not been cleared or approved by the U.S. Food and Drug Administration. This assay has been validated pursuant to the CLIA regulations and is used for clinical purposes. This test was developed and its analytical performance characteristics have been determined by [employer] [place] It has not been cleared or approved by the U.S. Food and Drug Administration. This assay has been validated pursuant to the CLIA regulations and is used for clinical purposes. Test Performed by [facility], [place], [address] [place], [place] Cole Rodriguez M.D., Ph.D., Director of Laboratories , CLIA [id number] TEST PERFORMED AT: , Ordering Provider: PAULINA GONZALEZ Report Released Date/Time: May 16, 2024 11:37 AM Reporting Lab: [address] [id number] Performing Lab: [facility] [address] [facility] [place], [address] [facility] [address] VITAMIN D, 25-OH, TOTAL 40 ng/mL 30-100 VITAMIN D, 25-OH, D3 8 ng/mL VITAMIN D, 25-OH, D2 32 ng/mL May 20, 2024 10:57 AM [facility] FOLATE (WROX) Specimen Type: SERUM No comment entered. Ordering Provider: PAULINA GONZALEZ Report Released Date/Time: May 16, 2024 11:37 AM Reporting Lab[facility] [address] [facility] [address] Performing Lab: [facility] [address] [facility] [address] FOLATE (WROX) 18.4 ng/mL >5.2 May 20, 2024 10:57 AM [facility] BASIC METABOLIC PANEL (non-fasting) Specimen Type: SERUM No comment entered. Ordering Provider: PAULINA GONZALEZ Report Released Date/Time: May 16, 2024 11:37 AM Reporting Lab: [facility] [address] [facility] [address] Performing Lab: [facility] [address] [facility] [address] UREA NITROGEN 17 mg/dL 7-25 GLUCOSE 106 mg/dL H 65-100 SODIUM 143 mmol/L 135-145 POTASSIUM 4.4 mmol/L 3.5-5.0 CHLORIDE 109 mmol/L 100-110 CO2 25 meq/L 20-30 CREATININE , Serum 1.25 mg/dL 0.50-1.40 eGFR(CKD-E PI 2020) 59 mL/min L >60 May 20, 2024 10:57 AM [facility] CBC AND DIFF (AUTO) Specimen Type: BLOOD No comment entered. Ordering Provider: PAULINA GONZALEZ Report Released Date/Time: May 16, 2024 11:37 AM Reporting Lab: [facility] [address] [facility] [address] Performing Lab: [address] [place] [address] WBC 6.37 10*3/uL 4.50-11.00 RBC 3.53 10*6/uL [...] 10*3/uL 0.00-0.00 May 20, 2024 10:57 AM [facility] VITAMIN B12 Specimen Type: SERUM No comment entered. Ordering Provider: PAULINA GONZALEZ Report Released Date/Time: May 16, 2024 11:37 AM Reporting Lab: [address] [address] Performing Lab: [address] [address] VITAMIN B12 292 pg/mL 200-900 May 20, 2024 10:57 AM [facility] FERRITIN Specimen Type: SERUM No comment entered. Ordering Provider: PAULINA GONZALEZ Report Released Date/Time: May 16, 2024 11:37 AM Reporting Lab: [address] [address] Performing Lab: [address] [address] FERRITIN 89 ng/mL 20-300 May 20, 2024 10:57 AM [facility] HIV 1&2 Ag/Ab SCREEN Specimen Type: SERUM Comment: Hep C Ab: No HCV antibody detected. If recent infection is suspected or other evidence suggests HCV infection, consider HCV nucleic acid testing Ordering Provider: PAULINA GONZALEZ Report Released Date/Time: May 16, 2024 11:37 AM Reporting Lab: [address] [address] Performing Lab: [address] [address] HIV 1&2 Ag/Ab SCREEN NON-REACTIVE Nonreactive May 20, 2024 10:57 AM [facility] HEPATITIS C ANTIBODY (HCV)-ARC Specimen Type: SERUM Comment: Hep C Ab: No HCV antibody detected. If recent infection is suspected or other evidence suggests HCV infection, consider HCV nucleic acid testing Ordering Provider: PAULINA GONZALEZ Report Released Date/Time: May 16, 2024 11:37 AM Reporting Lab: [address] [address] Performing Lab: [address] [address] HEPATITIS C ANTIBODY NON-REACTIVE NON-REACTIVE Social History: Smoking Status (Most current) and Tobacco Use (All prior to encounter date) This section includes the most current, and the historical, smoking and tobacco- related health factors from the [place] facility where the Encounter took place. Current Smoking Status This section includes the most current smoking, or tobacco-related health factor, from the [place] facility where the Encounter took place. Date/Time Current Smoking Status Comment Facil ngozi Apr 17, 2024 08:30 AM VA-TOBACCO USE FORMER CIGARETTES [facility] Tobacco Use History This section includes a history of the smoking, or tobacco-related health factors, that were collected on or before the date of the Encounter. The data comes from the [place] facility where the Encounter took place. Date/Time Smoking Status/Tobacco Use Comment Wallace simons Apr 17, 2024 08:30 AM [place]-TOBACCO USE FORMER CIGARETTES [facility] Encounter Notes: All associated encounter notes This section contains the clinical notes associated to the Encounter. Date/Time Encounter Note(s) Provider Source May 20, 2024 03:00 PM MENTAL HEALTH NURS ING NOTE: LOCAL TITLE: MENTAL HEALTH/NURSING INDIVIDUAL STANDARD TITLE: MENTAL HEALTH NURSING NOTE DATE OF NOTE: MAY 20, 2024@15:00 ENTRY DATE: MAY 20, 2024@15:57:32 AUTHOR: LYNDA COOK COSIGNER: URGENCY: STATUS: COMPLETED Supportive Counseling first visit, 50min 's ID: Aleena [id number] : 1945 Dx: Depression MSE: Appearance: good grooming & hygiene, wearing clothes appropriate for weather LOC: AOx3, pleasant & cooperative, good eye contact. Motor: ambulatory, normal gait, no tremors or abnormal movements noted. Speech: normal rate/volume/tone-prosody, engaged in conversation Mood: Full range, Affect: congruent with mood. Memory & Cognition: intact. SI/HI: denies Abnormal perceptions: none evident during this visit. Thought process: linear and future oriented Thought content: good fund of knowledge, denies thought disturbances. Insight/Judgment: sound/good given the opportunity to discuss the problems in his life that's causing his feelings of depression. Vet said, I feel like failure. no money/sibings, lives solely on his [employer] benefits, 2 failed marriages, described symptoms of survivor's guilt from surviving [place], cries easily for no reason or over little things , suffers from broken sleep. [place] self-medicates w/ ETOH for sleep, drinks 6-8 ounces hard liqour daily. On a positive note, very proud and pleased w/ his children's accomplishments having good careers, in good relationship w/ their partners/spouses, and they're financially secure. Follow-up Plan: - MH Psychotherapy consult placed in system so vet can begin formal counseling. - Vet plans to meet w/ ASH who comes to our clinic on Fridays for assist in filing claim for Agent Joes Exposure and PTSD. - Psychiatry consult awaiting to be scheduled w/ our staff psychiatrist to continue Trazodone sleep-aid med. /timur/ CHRISTOPHER HUNTER [facility] REVENUE MANAGER NURSE Signed: 05/20/2024 16:37 LYNAD COOK [facility]
--- OUTSIDE RECORDS SUMMARY | 2024-08-01 00:58 | XMS_ITS | Encounter Summary ---
Author Name [facility] [place] [facility] Address [address] [place] [address] Care Team Providers Care Reading Tutor Name Role Phone YAMILKA SPENCER Primary Care [...] Name Patient's Relationship to Policy Haile HUMANA [facility] (WNR) MEDICARE ADVANTAGE [facility] (WNR) August 28, 2022 [id number] ACSANDRADEUCE Dave PATIENT MEDICARE (WNR) MEDICARE (M) PART B Oct 29, 2015 PART B [id number] [phone] DEUCE GUAJARDO PATIENT MEDICARE (WNR) MEDICARE (M) PART B Oct 29, 2015 PART B [id number] [phone] CASANDRADEUCE Dave PATIENT MEDICARE (WNR) MEDICARE (M) PART B Oct 29, 2015 PART B [id number] [id number] [phone] CASANDRADEUCE Dave PATIENT MEDICARE (WNR) MEDICARE (M) PART B Oct 29, 2015 PART B [id number] CV64 [phone] CASANDRADEUCE Dave PATIENT MEDICARE (WNR) MEDICARE (M) PART A Jul 29, 2012 PART A [id number] CASANDRADEUCE Dave PATIENT MEDICARE (WNR) MEDICARE (M) PART A Jul 29, 2012 PART A [id number] CV64 [id number] DEUCE GUAJARDO PATIENT MEDICARE (WNR) MEDICARE (M) PART A Jul 29, 2012 PART A [id number] DEUCE GUAJARDO PATIENT MEDICARE (WNR) MEDICARE (M) PART B Jul 29, 2012 PART B [id number] DEUCE GUAJARDO PATIENT MEDICARE (WNR) MEDICARE (M) PART A Jul 29, 2012 PART A [id number] [id number] DEUCE GUAJARDO PATIENT MEDICARE (WNR) MEDICARE (M) PART A Jul 29, 2012 PART A [id number] [id number] DEUCE GUAJARDO PATIENT MEDICARE PART D (WNR) MEDICARE (M) PART D Apr 30, 2017 PART D [id number] DEUCE GUAJARDO PATIENT Selected Encounter This section includes the information on record at [place] for the Encounter. Date/Time Encounter Type Encounter Description Reason Pro vider Source IHE Encounter Template Text not used by [place]
--- OUTSIDE RECORDS SUMMARY | 2024-08-01 00:58 | XMS_ITS | Encounter Summary ---
Author Name [facility] [facility] [place] [facility] [facility] [place] Address [address] [place] [address] Care Team Providers Care Collar Sewer Name Role Phone YAMILKA SPENCER Primary Care [...] Name Patient's Relationship to Policy Haile [employer] [facility] (WNR) MEDICARE ADVANTAGE [facility] ([facility]) August 28, 2022 [id number] [phone] DEUCE GUAJARDO PATIENT MEDICARE (WN) MEDICARE () PART B Oct 29, 2015 PART B [id number] DEUCE GUAJARDO PATIENT MEDICARE (WNR) MEDICARE () PART B Oct 29, 2015 PART B [id number] [phone] DEUCE GUAJARDO PATIENT MEDICARE (WN) MEDICARE () PART B Oct 29, 2015 PART B [id number] [phone] DEUCE GUAJARDO PATIENT MEDICARE (WNR) MEDICARE () PART B Oct 29, 2015 PART B [id number] [phone] DEUCE GUAJARDO PATIENT MEDICARE (WN) MEDICARE () PART A Jul 29, 2012 PART A [id number] [phone] DEUCE GUAJARDO PATIENT MEDICARE (WNR) MEDICARE (M) PART A Jul 29, 2012 PART A [id number] [phone] DEUCE GUAJARDO PATIENT MEDICARE (WNR) MEDICARE (M) PART A Jul 29, 2012 PART A [id number] [phone] DEUCE GUAJARDO PATIENT MEDICARE (WNR) MEDICARE (M) PART A Jul 29, 2012 PART A [id number] DEUCE GUAJARDO PATIENT MEDICARE (WNR) MEDICARE (M) PART B Jul 29, 2012 PART B [id number] DEUCE GUAJARDO PATIENT MEDICARE (WNR) MEDICARE (M) PART A Jul 29, 2012 PART A [id number] DEUCE GUAJARDO PATIENT MEDICARE PART D (WNR) MEDICARE (M) PART D Apr 30, 2017 PART D [id number] DEUCE GUAJARDO PATIENT Selected Encounter This section includes the information on record at [place] for the Encounter. 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 The data comes from all [place] treatment facilities. Appointment Date/Time Appointment Type Appointme nt Facility Name Jul 31, 2024 11:00 AM AMBULATORY - [facility] [place] [facility] Aug 04, 2024 09:00 AM AM[facility]ULATORY [facility] MEDICINE [facility] [place] [facility] Aug 05, 2024 01:00 PM AMBULATORY - MEDICINE [facility] [place] [facility] Aug 07, 2024 09:00 AM AMBULATORY [facility] MEDICINE [facility] [place] [facility] Aug 07, 2024 09:00 AM [facility] September 08, 2024 03:00 PM AMBULATORY - PSYCHIATRY [facility] [place] [facility] Nov 24, 2024 09:00 AM AMBULATORY [facility] MEDICINE [facility] [place] [facility] Dec 02, 2024 01:00 PM AMBULATORY - MEDICINE [facility] [place] [facility] Dec 02, 2024 01:00 PM [facility] Active, Pending, and Scheduled Orders This section [...] Test Type Test Details Facility Name Jun 10, 2024 02:52 PM Consult Order [facility] Cons Guide Travel's Choice [facility] Jul 25, 2024 12:00 AM Laboratory - Chemistry Order BASIC METABOLIC PANEL (non-fasting) BLOOD (SST[facility]SERUM) [facility] [place] [facility] Jul 25, 2024 12:00 AM Laboratory - Chemistry Order CBC AND DIFF (AUTO) BLOOD (LAV-BLOOD) [facility] [place] [facility] Jul 25, 2024 12:00 AM Laboratory - Chemistry Order LIVER FUNCTION BLOOD (SST-SERUM) [facility] [place] [facility] Jul 25, 2024 03:29 PM Consult Order VISN 1 [facility] OUTPT [facility] Cons Guide Travel's Choice [facility] Lab Results: +/- 30 days of the encounter This section includes the Chemistry and Hematology Lab Results on [facility] with [facility] for the [facility]. Radiology Reports and Pathology Reports are provided separately, in subsequent sections. Lab Results This section contains the Chemistry/Hematology Results that were resulted 30 days before or 30 daysafter the date of the Encounter. Date/Time Source Result Type Result - Unit Interpretation Reference Range Comment Jul 24, 2024 10:30 AM [facility] CBC AND DIFF (AUTO) Specimen Type: BLOOD No comment entered. Ordering Provider: PAULINA GONZALEZ Report Released Date/Time: Jul 09, 2024 08:44 AM Reporting Lab: [facility] [address] [address] Performing Lab: [facility] [address] [address] WBC 12.79 10*3/uL H 4.50-11.00 RBC 3.58 [...] 10*3/uL 0.00-0.00 Jul 24, 2024 10:30 AM [facility] BASIC METABOLIC PANEL (non-fasting) Specimen Type: SERUM No comment entered. Ordering Provider: PAULINA GONZALEZ Report Released Date/Time: Jul 09, 2024 08:44 AM Reporting Lab: [facility] [address] [address] Performing Lab: [address] [address] UREA NITROGEN 26 mg/dL H 7-25 GLUCOSE 122 mg/dL H 65-100 SODIUM 135 mmol/L 135-145 POTASSIUM 3.8 mmol/L 3.5-5.0 CHLORIDE 102 mmol/L 100-110 CO2 23 meq/L 20-30 CALCIUM 8.3 mg/dL L 8.5-10.2 CREATININE, Serum 2.28 mg/dL H 0.50-1.40 eGFR(CKD-EPI 2020) 29 mL/min L >60 Jul 24, 2024 10:30 AM [facility] LIVER FUNCTION Specimen Type: SERUM No comment entered. Ordering Provider: PAULINA GONZALEZ Report Released Date/Time: Jul 09, 2024 08:44 AM Reporting Lab: [address] [address] Performing Lab: [address] [address] PROTEIN,TOTAL 6.2 g/dL 6.0-8.3 ALBUMIN 3.6 g/dL 3.5-5.0 ALKALINE PHOSPHATASE 92 U/L 40-150 AST 15 U/L 5-34 ALT 18 U/L BILIRUBIN, TOTAL 1.6 mg/dL H 0.2-1.2 BILIRUBIN, DIRECT 0.6 mg/dL H 0-0.5 Jul 24, 2024 10:30 AM [facility] LIPID PANEL, NON FASTING Specimen Type: SERUM No comment entered. Ordering Provider: PAULINA GONZALEZ Report Released Date/Time: Jul 09, 2024 08:44 AM Reporting Lab: [address] [address] Performing [facility]: [facility] [address] [address] CHOLESTEROL 111 mg/dL TRIGLYCERIDE 180 mg/dL H 0-150 LDL calculated 33 mg/dL 0-129 CHOL/HDL 2.6 HDL CHOLESTEROL 42 mg/dL 40-60 Jul 24, 2024 10:30 AM [facility] CREATININE (eGFR 2020) Specimen Type: SERUM No comment entered. Ordering Provider: PAULINA GONZALEZ Report Released Date/Time: Jul 09, 2024 08:44 AM Reporting Lab: [facility] [address] [address] Performing Lab: [facility] [address] [address] CREATININE, Serum 2.28 mg/dL H 0.50-1.40 eGFR(CKD-EPI 2020) 29 mL/min L >60 Social History: Smoking Status (Most current) [...] Dheeraj melvin Apr 17, 2024 08:30 AM [place]-TOBACCO USE FORMER CIGARETTES [facility] Tobacco Use History This section includes a history of the smoking, or tobacco-related health factors, that were collected on or before the date of the Encounter. The data comes from the [place] facility where the Encounter took place. Date/Time Smoking Status/Tobacco Use Comment F kristyn Apr 17, 2024 08:30 AM [place]-TOBACCO USE FORMER CIGARETTES [facility] Encounter Notes: All associated encounter notes This section contains the clinical notes associated to the Encounter. Date/Time Encounter Note(s) Provider Source Jul 24, 2024 10:20 AM PRIMARY CARE OUTPA TIENT NOTE: LOCAL TITLE: AMBULATORY/OUTPATIENT CARE NOTE STANDARD TITLE: PRIMARY CARE OUTPATIENT NOTE DATE OF NOTE: JUL 24, 2024@10:20 ENTRY DATE: JUL 24, 2024@10:20:58 AUTHOR: GILL PAZ EXP COSIGNER: URGENCY: STATUS: COMPLETED F: Nurse visit: Blood pressure check: D/A:= Toivola here for blood pressure check per PCP/Verna . Sita has history of hypertension. Presently he is taking this medication for elevated B/P HCTZ/Losartan. Next appt with PCP is on 08/07. B/P today is 118/52 in his right arm and 114/48 in his left arm (manual cuff used with arm elevated at heart level) Pulse is 71.Followed my manual with clinic auto cuff gear readings 94/52 left and 88/48 right. reviewed results with pcp over teams, and the marked dispairity with home journal. Toivola presented home BP journal the list contained lots of quite high readings. Toivola did not bring home auto cuff to check fitment of cuff or its results memory. Incidentally shares I had the worst allergy problem last night. I didn't read the label of on of them frozen dinners, well it had sesame seeds and oil in it. Those are the worst sends me into and allergy fit. I took some Benadryl 2 pills I usually get the liquid for kids and drink half the bottle cause I don't like pills . I asked if he remembered the strength of the pills did not know the strength. also states he is almost out of the new med for clarity i ask if he is refering to the HCTZ/Losartan aas the new med yup thats the new one im on . /timur/ GILL PAZ RN Signed: 07/24/2024 12:27 GILL PAZ [facility]
--- OUTSIDE RECORDS SUMMARY | 2024-08-01 00:58 | XMS_ITS | Encounter Summary ---
Author Name [facility] [place] [facility] [place] [facility] [place] [facility] [place] Address [address] [place] [address] Care Team Providers Care Internal Controls Consultant Name Role Phone YAMILKA SPENCER Primary Care [...] Name Patient's Relationship to Policy Haile [employer] [facility] (WNR) MEDICARE ADVANTAGE [facility] ([facility]) August 28, 2022 [id number] [phone] DEUCE GORDILLO PATIENT MEDICARE (WN) MEDICARE () PART B Oct 29, 2015 PART B [id number] [phone] DEUCE GORDILLO PATIENT MEDICARE (WNR) MEDICARE () PART B Oct 29, 2015 PART B [id number] [phone] DEUCE GORDILLO PATIENT MEDICARE (WN) MEDICARE () PART B Oct 29, 2015 PART B [id number] [phone] DEUCE GORDILLO PATIENT MEDICARE (WNR) MEDICARE () PART B Oct 29, 2015 PART B [id number] [phone] DEUCE GORDILLO PATIENT MEDICARE (WN) MEDICARE () PART A Jul 29, 2012 PART A [id number] [phone] DEUCE GORDILLO PATIENT MEDICARE (WNR) MEDICARE (M) PART A Jul 29, 2012 PART A [id number] [phone] DEUCE GORDILLO PATIENT MEDICARE (WNR) MEDICARE (M) PART A Jul 29, 2012 PART A [id number] [phone] DEUCE GORDILLO PATIENT MEDICARE (WNR) MEDICARE (M) PART A Jul 29, 2012 PART A [id number] DEUCE GORDILLO PATIENT MEDICARE (WNR) MEDICARE (M) PART B Jul 29, 2012 PART B [id number] DEUCE GORDILLO PATIENT MEDICARE (WNR) MEDICARE (M) PART A Jul 29, 2012 PART A [id number] DEUCE GORDILLO PATIENT MEDICARE PART D (WNR) MEDICARE (M) PART D Apr 30, 2017 PART D [id number] DEUCE GORDILLO PATIENT Selected Encounter This section includes the information on record at [place] for the Encounter. Date/Time Encounter Type Encounter Description Reason Provider Source May 06, 2024 01:00 PM OFF/OP EST AUGUST X REQ PHY/HP [facility] - IND ICD-10-CM F32.A Depression, unspecified COOK,LYNDA E Encounter Template Text not used by [place] Assessments - Encounter Diagnoses This section includes the primary and secondary diagnoses documented for the Encounter. Date/Time Primary/Secondary Diagnosis Diagnosis Name Provider Source May 12, 2024 05:05 PM PRIMARY Depression, unspecified COOK,LYNDA [facility] Plan of Treatment: Future Appointments (+ 6 months) and Future Tests (+/- 45 days) The Plan of Treatment section includes future care activities for the patient from all [place] treatmentfacilities. This section includes future appointments and future orders which are active, pending or scheduled. Future Appointments This section includes appointments that were scheduled to occur 6 months from the date of the Encounter, up to a maximum of 20 appointments. The data comes from all [place] treatment facilities. Appointment Date/Time Appointment Type Appointme nt Facility Name May 20, 2024 11:00 AM AMBULATORY - MEDICINE [facility] May 20, 2024 03:00 PM AMBULATORY - PSYCHIATRY [facility] May 21, 2024 11:00 AM AM[facility]IC[facility] [place] May 26, 2024 03:00 PM AMBULATORY [facility]ICINE [facility] [place] Jun 04, 2024 01:00 PM AMBULATORY [facility] MEDICINE [facility] [place] Jun 27, 2024 09:30 AM AMBULATORY [facility] MEDICINE [facility] Jul 06, 2024 10:30 AM AMBULATORY [facility] MEDICINE [facility] Jul 07, 2024 01:00 PM AMBULATORY - REHAB MEDICIN E [facility] Jul 24, 2024 09:30 AM AMBULATORY [facility] MEDICINE [facility] Jul 24, 2024 10:00 AM AMBULATORY - MEDICINE [facility] Jul 31, 2024 11:00 AM AMBULATORY - REHAB MEDICIN E [facility] Aug 04, 2024 09:00 AM AMBULATORY - MEDICINE [facility] Aug 05, 2024 01:00 PM AMBULATORY - MEDICINE [facility] Aug 07, 2024 09:00 AM AMBULATORY - MEDICINE [facility] Aug 07, 2024 09:00 AM AM[facility]ULATORY - MEDICINE [facility] September 08, 2024 03:00 PM AMBULATORY - PSYCHIATRY [facility] Active, Pending, and Scheduled Orders This section includes a listing of several types of active, pending, and scheduled orders, including clinic medications orders, diagnostic test orders, procedure orders and consult orders; where the start date of the order is 45 days before the date of the Encounter or 45 days after the date of theEncounter. The data comes from all [place] treatment facilities. Test Date/Time Test Type Test Details Facility Name May 06, 2024 02:44 PM Consult Order PSYCHIATRI C MEDICATION POPC OUTPT Cons Business Department Chair's Choice [facility] Jun 04, 2024 01:46 PM Consult Order COMMUNITY CARE-SLEEP STUDY Cons Business Department Chair's Choice [place] [facility] [place] [facility] Jun 10, 2024 02:52 PM Consult Order COMMUNITY CARE-BH PSYCHOTHERAPY Cons Business Department Chair's Choice [facility] Lab Results: +/- 30 days of the encounter This section includes the Chemistry and Hematology Lab Results on record with [place] for the patient. Radiology Reports and Pathology Reports are provided separately, in subsequent sections. Lab Results This section contains the Chemistry/Hematology Results that were resulted 30 days before or 30 daysafter the date of the Encounter. Date/Time Source Result Type Result - Unit Interpretation Reference Range Comment May 20, 2024 10:57 AM [facility] VITAMIN D 25-OH (Therapy monitor) Specimen Type: SERUM Comment: Vitamin D, 25-Hydroxy reports concentrations of two common forms, 25-OHD2 and 25-OHD3. 25-OHD3 indicates both endogenous production and supplementation . 25-OHD2 is an indicator of exogenous sources such as diet or supplementation . Therapy is based on measurement of Total 25-OHD, with levels <20 ng/mL indicative of Vitamin D deficiency, while levels between 20 ng/mL and 30 ng/mL suggest insufficiency. Optimal levels are > or = 30 ng/mL. For additional information, please refer to http://educatio n.[employer]/faq/FAQ 199 (This link is being provided for informational/ educational purposes only.) This test was developed and its analytical performance characteristics have been determined by [facility] [place]. It has not been cleared or approved by the U.S. Food and Drug Administration. This assay has been validated pursuant to the CLIA regulations and is used for clinical purposes. This test was developed and its analytical performance characteristics have been determined by [facility] [place]. It has not been cleared or approved by the U.S. Food and Drug Administration. This assay has been validated pursuant to the CLIA regulations and is used for clinical purposes. Test Performed by [facility], [place], [address] [facility], [place], [place] Cole Rodriguez M.D., Ph.D., Director of Laboratories , CLIA [id number] TEST PERFORMED AT: , Ordering Provider: PAULINA GONZALEZ Report Released Date/Time: May 16, 2024 11:37 AM Reporting Lab: [facility] [address] [address] Performing Lab: [facility] [address] [address] VITAMIN D, 25-OH, TOTAL 40 ng/mL 30-100 VITAMIN D, 25-OH, D3 8 ng/mL VITAMIN D, 25-OH, D2 32 ng/mL May 20, 2024 10:57 AM [facility] FOLATE (WROX) Specimen Type: SERUM No comment entered. Ordering Provider: PAULINA GONZALEZ Report Released Date/Time: May 16, 2024 11:37 AM Reporting Lab: [facility] [address] [address] Performing Lab: [facility] [address] [facility] [address] FOLATE (WROX) 18.4 ng/mL >5.2 May 20, 2024 10:57 AM [facility] BASIC METABOLIC PANEL (non-fasting) Specimen Type: SERUM No comment entered. Ordering Provider: PAULINA GONZALEZ Report Released Date/Time: May 16, 2024 11:37 AM Reporting Lab: [address] [address] Performing Lab: [address] [address] UREA NITROGEN 17 mg/dL 7-25 GLUCOSE 106 mg/dL H 65-100 SODIUM 143 mmol/L 135-145 POTASSIUM 4.4 mmol/L 3.5-5.0 CHLORIDE 109 mmol/L 100-110 CO2 25 meq/L 20-30 CREATININE, Serum 1.25 mg/dL 0.50-1.40 eGFR(CKD-EPI 2020) 59 mL/min L >60 May 20, 2024 10:57 AM [facility] CBC AND DIFF (AUTO) Specimen Type: BLOOD No comment entered. Ordering Provider: PAULINA GONZALEZ Report Released Date/Time: May 16, 2024 11:37 AM Reporting Lab: [address] [address] Performing Lab: [facility] [address] [address] WBC 6.37 10*3/uL 4.50-11.00 RBC 3.53 10*6/uL [...] 10*3/uL 0.00-0.00 May 20, 2024 10:57 AM [facility] VITAMIN B12 Specimen Type: SERUM No comment entered. Ordering Provider: PAULINA GONZALEZ Report Released Date/Time: May 16, 2024 11:37 AM Reporting Lab: [facility] [address] [address] Performing Lab: [address] [address] VITAMIN B12 292 pg/mL 200-900 May 20, 2024 10:57 AM [facility] FERRITIN Specimen Type: SERUM No comment entered. Ordering Provider: PAULINA GONZALEZ Report Released Date/Time: May 16, 2024 11:37 AM Reporting Lab: [facility] [address] [address] Performing Lab: [facility] [address] [address] FERRITIN 89 ng/mL 20-300 May 20, 2024 10:57 AM [facility] HIV 1&2 Ag/Ab SCREEN Specimen Type: SERUM Comment: Hep C Ab: No HCV antibody detected. If recent infection is suspected or other evidence suggests HCV infection, consider HCV nucleic acid testing Ordering Provider: PAULINA GONZALEZ Report Released Date/Time: May 16, 2024 11:37 AM Reporting Lab: [facility] [address] [address] Performing Lab: [facility] [address] [address] HIV 1&2 Ag/Ab SCREEN NON-REACTIVE Nonreactive May 20, 2024 10:57 AM [facility] HEPATITIS C ANTIBODY (HCV)-ARC Specimen Type: SERUM Comment: Hep C Ab: No HCV antibody detected. If recent infection is suspected or other evidence suggests HCV infection, consider HCV nucleic acid testing Ordering Provider: PAULINA GONZALEZ Report Released Date/Time: May 16, 2024 11:37 AM Reporting Lab: [facility] [address] [address] Performing Lab: [facility] [address] [address] HEPATITIS C ANTIBODY NON-REACTIVE NON-REACTIVE Apr 14, 2024 11:15 AM [facility] CBC AND DIFF (AUTO) Specimen Type: BLOOD No comment entered. Ordering Provider: PAULINA GONZALEZ Report Released Date/Time: Apr 08, 2024 09:59 AM Reporting Lab: [facility] [address] [address] Performing Lab: [facility] [address] [address] WBC 6.33 10*3/uL 4.50-11.00 RBC 3.71 10*6/uL [...] 10*3/uL 0.00-0.00 Apr 14, 2024 11:15 AM [facility] BASIC METABOLIC PANEL (non-fasting) Specimen Type: SERUM No comment entered. Ordering Provider: PAULINA GONZALEZ Report Released Date/Time: Apr 08, 2024 09:59 AM Reporting Lab: [address] [address] Performing Lab: [address] [address] UREA NITROGEN 24 mg/dL 7-25 GLUCOSE 122 mg/dL H 65-100 SODIUM 139 mmol/L 135-145 POTASSIUM 4.7 mmol/L 3.5-5.0 CHLORIDE 108 mmol/L 100-110 CO2 22 meq/L 20-30 CREATININE, Serum 1.44 mg/dL H 0.50-1.40 eGFR(CKD-EPI 2020) 50 mL/min L >60 Apr 14, 2024 11:15 AM [facility] LIVER FUNCTION Specimen Type: SERUM No comment entered. Ordering Provider: PAULINA GONZALEZ Report Released Date/Time: Apr 08, 2024 09:59 AM Reporting Lab: [facility] [address] [address] Performing Lab: [address] [address] PROTEIN,TOTAL 6.2 g/dL 6.0-8.3 ALBUMIN 3.5 g/dL 3.5-5.0 ALKALINE PHOSPHATASE 99 U/L 40-150 AST 13 U/L 5-34 ALT 16 U/L BILIRUBIN, TOTAL 0.9 mg/dL 0.2-1.2 Apr 14, 2024 11:15 AM [facility] LIPID PANEL, NON FASTING Specimen Type: SERUM No comment entered. Ordering Provider: PAULINA GONZALEZ Report Released Date/Time: Apr 08, 2024 09:59 AM Reporting Lab: [facility] [address] [address] Performing Lab: [address] [address] CHOLESTEROL 160 mg/dL TRIGLYCERIDE 208 mg/dL H 0-150 LDL calculated 77 mg/dL 0-129 CHOL/HDL 3.9 HDL CHOLESTEROL 41 mg/dL 40-60 Apr 14, 2024 11:15 AM [facility] HEMOGLOBIN A1C PANEL Specimen Type: BLOOD Comment: Values obtained from A1C measurements can vary. For atypical A1C assays, a reported value of 7.0 could actually be between 6.72 and 7.28 if measured by a reference method. A reported value of 9.0 could actually be between 8.73 and 9.27. Ref: http://www.ngsp .org/CAPdata.as p Ordering Provider: PAULINA GONZALEZ Report Released Date/Time: Apr 08, 2024 09:59 AM Reporting Lab: [facility] [address] [address] Performing Lab: [facility] [address] [address] HEMOGLOBIN A1C 5.4 4.0-5.6 Apr 14, 2024 11:15 AM [facility] MICROALBUMIN CREATININE RATIO PANEL Specimen Type: URINE No comment entered. Ordering Provider: PAULINA GONZALEZ Report Released Date/Time: Apr 08, 2024 09:59 AM Reporting Lab: [facility] [place] [facility] [address] [address] Performing Lab: [facility] [address] MICROALBUMIN/ CREATININE RATIO 6.1 mg/g 0-29.9 MICROALBUMIN, QUANTITATIVE 0.8 mg/dL RR UNAVAIL CREATININE URINE 131.91 mg/dL Apr 14, 2024 11:15 AM [facility] TSH Specimen Type: SERUM No comment entered. Ordering Provider: PAULINA GONZALEZ Report Released Date/Time: Apr 08, 2024 09:59 AM Reporting Lab: [facility] [place] [facility] [address] [address] Performing Lab: [facility] [address] [address] TSH 1.11 u[IU]/mL 0.35-5.00 Social History: Smoking Status (Most current) and Tobacco Use (All prior to encounter date) This section includes the most current, and the historical, smoking and tobacco- related health factors from the [place] facility where the Encounter took place. Current Smoking Status This section includes the most current smoking, or tobacco-related health factor, from the [place] facility where the Encounter took place. Date/Time Current Smoking Status Comment Dheeraj melvin Apr 17, 2024 08:30 AM VA-TOBACCO USE FORMER CIGARETTES [facility] Tobacco Use History This section includes a history of the smoking, or tobacco-related health factors, that were collected on or before the date of the Encounter. The data comes from the [place] facility where the Encounter took place. Date/Time Smoking Status/Tobacco Use Comment F acility Apr 17, 2024 08:30 AM VA-TOBACCO USE FORMER CIGARETTES [facility] Encounter Notes: All associated encounter notes This section contains the clinical notes associated to the Encounter. Date/Time Encounter Note(s) Provider Source May 06, 2024 01:20 PM MENTAL HEALTH CONS ULT: LOCAL TITLE: CONSULT REPORT/UNIFORM OUTPATIENT MENTAL HEALTH ASS STANDARD TITLE: MENTAL HEALTH CONSULT DATE OF NOTE: MAY 06, 2024@13:20 ENTRY DATE: MAY 06, 2024@13:20:22 AUTHOR: LYNDA COOKIGNER: URGENCY: STATUS: COMPLETED INFORMED CONSENT TO PARTICIPATE IN ASSESSMENT: At beginning of session reviewed rights and limits of confidentiality, mandatory reporting situations, duty to warn and protect, Herrmann Warning, (if treatment team finds patient to be an acute danger to himself or others, that this information could be relayed to a court of law and presented to a loop drier operator), and DOD access for active duty service members. Provided Suicide Prevention Hotline number, and other contact numbers as necessary. Uniform Outpatient Mental Health Assessment I. IDENTIFYING INFORMATION: ALEENA GORDILLO Jan (54) [phone] SERVICE CONNECTED % - 10 MARITAL STATUS - Referral source: pc provider Present at time of intake: Bryn Athyn [X] Family member [ ] Supportive person(s) Name: Language Preference:Lithuanian Language Spoken:Lithuanian II. PRESENTING SITUATION: A. What brings you into Mental Health at this time: - to establ MH services B. What are some of your goals for treatment: - wants counseling for depression C. What are some of your strengths: - lately i feel like I have none. D. What are the obstacles or challenges preventing you from meeting your goals?: - none that I can think of but maybe my knee pain problem . III: ASSESSMENT: A. Do you have concerns about past or current mental health symptoms or problems: Yes [X] No [ ] If yes, please describe: - decades ago in the 1979[address] was court mandated to attend counseling d/t sexual accusations which were dismissed by the court. How do you see these concerns impacting past and current quality of life (School, Work, Family, Housing, Finances, Social life, Legal): - mostly social impact d/t depression B. Have you previously been involved in Mental Health treatment: Yes [ ] No [X] If yes, please check all that apply and describe: [ ] Hospitalizations (when, where, etc.): denies [ ] Medication trials (what, when, doses, etc.): denies [ ] Therapy trials (type, when, etc.): denies C. Do you have concerns about current or past substance use: Yes [X] No [ ] If yes, please identify Bryn Athyn's primary and secondary substances of choice: ALCOHOL Substance Use History ALCOHOL: Age of onset: -late teens started drinking beer occasionally, became a heavy drinker when he got back from [place] in 1968. - was able to quit drinking for a 2yr span in , but relapsed. Frequency/Amount: - usually drinks 4 ounces hard liqour daily but d/t depression more recently increased to 8-12ounces hard liqour since mid Mar 2024, also uses alcohol to help him fall asleep at night. CANNABIS Age of onset: - smoke a little bit of mj during mil service b/w [id number], then stopped completely until recently when he came to [place] to visit relatives, jacob tried gummies for sleep but was not helpful. OPIATES: denies COCAINE: denies AMPHETAMINES: denies INHALANTS: denies OTHER SUBSTANCES (MDMA/ECTASY, DXM/CORICIDIN, STEROIDS,DIPHENYDRAMINE/BENADRYL, BATH SALTS, SPICE, K-2, OTHER? denies SEDATIVES, HYPNOTICS, ANXIOLYTICS: denies TOBACCO Age of onset: 18 stopped during mid about same time when he quit drinking alcohol. Frequency/Amt: used to smoke 1-2 PPD cigarettes Last use: mid- IV: PERSONAL HISTORY/INFORMATION: A. Biological/Social History (including: relevant developmental history, family of origin, sexual/physical/emotional traumas, cultural factors, applicable sexual history): - Born/raised in [facility], parents when vet was 4y/o. Vet lost contact w/ his biol father for 44yrs, they reconnected 1993 when vet was 49y/o, father in 2012. Gisellet's mother remarried soon after the divorce. Gisellet's step-father was very strict. Vet felt that his half-sister was favored over him. Vet was 24 when he his 1st , they after 11yrs d/t jacob's infedility; 2 sons from 1st marriage. Jacob remarried 1986 when he was 42, amicable divorce after 20yrs, helped raise 2nd 's teenage daughters. Remained friends w/ 2nd until her from cancer in 2018. Jacob fathered a child while in [place], daughter was born Mar 1969, jacob said he wanted to take mother & daughter to [place] but the wouldn't allow it so lost touch w/ them until 2014 by chance thru mutual friend. Aparently, mother & daughter emigrated from [place] to the /[place] in 1990 and daughter had been looking for her father/ ever since but was unsuccessful. Jacob moved to [facility] in 2016 to be near his daughter. Jacob travels via mobile home to visit relatives throughout the . Jacob staying in the [facility] spending time w/ one of his sons & family. B. 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 What provides you with sense of value or quality of life good family connections D. What are some accomplishments that you feel a sense of pride about: mil service, my daughter's accomplishments E. What brings you enjoyment: spending time w/ children and grndkids (jacob has 6) F. Are you comfortable with your current living arrangement (Have you ever been homelessness or at risk for homelessness): lives in a mobile home he drives throughout the country to visit family members. G. What are your social or community Supports, your healthy or positive relationships: - adult children are supportive H: What is your educational history or current goals: -hs grad, few college credits I. 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 Moved to [place] in 2016 to be near his new found daughter from [place]. J. Do you have a legal history (incarcerations, probation, parole, divorce, child custody issues): - as above K. What is your level of judaism or spiritual fulfillment: - none congregation, but likes going to [facility] L. How do you culturally identify? Can you anticipate any particular cultural treatment? -[place] M. Is there anybody you would like involved in the planning or delivery of your care: - HC: Sandy Power (adopted daughter in [facility] who's an RN) [phone] N. Do you have concerns for your safety or the safety of others (domestic violence, abuse/neglect, etc): - denies O. Have you ever been in a situation where you felt you were taken advantage of or exploited, particularly by someone in a position of power? denies P. 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 PHYSICAL HEALTH SCREENING A. Do you have any past or current medical concerns: Yes [X] No [ ] Active Problem Exposure to potentially hazardous s 04/25/2024 SHWETHA FLOR History of cholecystectomy Z90.49 04/17/2024 PAULINA GONZALEZ Chronic obstructive pulmonary disea 04/17/2024 PAULINA GONZALEZ HTN - Hypertension (ZUNI [facility] [id number][facility] I 04/16/2024 PAULINA GONZALEZ Hearing Loss ([facility] [id number]) H91.90 04/16/2024 PAULINA GONZALEZ Tinnitus H93.19 04/16/2024 PAULINA GONZALEZ Alcohol Dependence ([facility] [id number]) F 04/16/2024 PAULINA GONZALEZ Delgadillo's Esophagus ([facility] [id number]) 04/16/2024 PAULINA GONZALEZ Chronic rhinitis J31.0 04/16/2024 PAULINA GONZALEZ Insomnia ([facility] [id number]) G47.00 04/16/2024 PAULINA GONZALEZ Obstructive Sleep Apnea of Adult (S 04/16/2024 PAULINA GONZALEZ Hyperlipidemia ([facility] [id number]) E78.5 04/16/2024 PAULINA GONZALEZ OA - Osteoarthritis ([facility] [id number]) 04/16/2024 PAULINA GONZALEZ Other medical problems not listed above: bilat knee problems w/ osteoarthritis, 2019 Left-hip replacement still problematic, hurts when walking B. Date of last physical exam:[ ]Unknown C.Are you experiencing pain: Rating (0-10: 2 Comment on pain rating: Left hip pain, no knee pain right now D. Nutritional screening - Have you experienced any of the following: Food Allergies? , describe:Sesame seed products Significant (+/- 10lbs) gain or loss in the last three months? No, describe: Decrease in food intake/appetite? No, describe: Notable Dental problems? No, describe: Significant change in eating habits (purging, restricting, etc.)? No, describe: E. How do you see these concerns impacting on past and current quality of life (School, Work, Family, Housing, Finances, Social life, Legal, etc): Active Outpatient Medications (including Supplies): ATORVASTATIN CALCIUM [...] VITAMIN/NUTRITION SUPPLEMENT Indication: FOR INADEQUATE FOLIC ACID MULTIVIT/OPHTH AREDS2/LUTE/ZEAX CAP/TAB TAKE 1 CAPSULE BY ACTIVE MOUTH TWICE DAILY IN THE MORNING AND EVENING, WITH FOOD Indication: FOR VITAMIN SUPPLEMENTATION OMEPRAZOLE 20MG EC CAP TAKE TWO CAPSULES BY MOUTH TWICE ACTIVE DAILY Indication: FOR GASTROESOPHAGEAL REFLUX DISEASE THIAMINE 100MG TAB TAKE ONE TABLET BY MOUTH ONCE DAILY ACTIVE Indication: FOR DEFICIENCY IN THIAMINE OR VITAMIN B1 : MENTAL STATUS / SUBJECTIVE COMPLAINTS: (check all that apply): Appearance:Neatly groomed, Appropriate to season, Other: Behavior:Appropriate, Pleasant, Maintained good eye contact, Other: Mood/Affect:Normal, Responsive and Congruent w/mood, Other: Energy: Variable, Other: Sleep:Sleep onset insomnia, Frequent disruption Orientation: Oriented to person: Yes Oriented to place: Yes Oriented to time: Yes Stream of thought:Normal, No evidence of thought disorder, No overt psychosis, Denies Flashbacks, Paranoid/Delusions Speech:Normal, Other: Insight / Judgment:Normal Other cognitive problems:Cognition intact, Logical and Linear, Memory sufficient for interview, Other: Relevant Observations, other notes: : DSM5 DIAGNOSES: - Depression VII: SUMMARY AND IMPRESSIONS: Mr. Gordillo is a 79y/o dwm, [employer] w/ honorable d/c, 10%SC Tinnitus, no MH tx history, denies illicit drug use hx, admits having a little drinking problem that has worsened recently d/t feelings of depression, reports drinking 6-8 ounces hard liqour close to bedtime to help him sleep. Declines psych med trial at this time but interested in supportive counseling. Denies past/present concerns w/ SI/HI. VIII: NEXT STEPS/FOLLOW-UP PLAN: Initial supportive counseling session w/ the undersigned scheduled as follows: 05/13/2024 11:00 [facility] RN 1 /es/ LYNDA COOK, [facility] [employer] NURSE Signed: 05/12/2024 17:02 LYNDA COOK [facility]
== END ==
LOC: HO.SL 19:30
PROVIDERS: Visit Provider Counselor Professional
DX: Z13.89 Encounter for screening for other disorder (principal)